=== PATIENT | female | born 1995 | race Two or more races ===

== ENCOUNTER 2024-08-20 01:46 | Inpatient (IN) | payer MEDICAID ==
[2024-08-20] VITALS (76 sets, daily range): BP systolic 103–176; BP diastolic 46–99; PULSE 65–155; RESP 12–24; TEMP 98.8–100; O2SAT 97–100
[~2024-08-20] VITALS: Ht 167.6 cm; Wt 80.3 kg
[2024-08-20] MEDS: MIDAZOLAM HCL 5 MG/ML-1ML VIAL ONE (02:13)
[2024-08-20] MEDS ORDERED: MIDAZOLAM HCL 5 MG/ML-1ML VIAL IM ONE (02:15)
--- NOTE | 2024-08-20 02:20 | ED.PDOC ---
History of Present Illness HPI Comments 29 y/o F, with a Hx of seizures and 3x intubations, is BIBA for c/o seizures, today. Per EMS report, patient's "boyfriend" called after patient had a sudden seizure episode after consuming 2x "twisted teas" and 1x "shot" alcohol beverages, while at a bar, this morning. Patient was noted to have been post-ict al, with a blood glucose of 111, on scene and became A&Ox3 upon arrival to ED. At time of assessment, patient had another seizure episode. Further history cannot be obtained at this time, due to patient, currently, seizing, and absence of family/hair dryer historians. 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 MECHANIC History: Denies all SCAGLIOLA MECHANIC Hx Family History Family History: Unknown Social History Smoker: Non-Smoker Alcohol: Heavy Drugs: Denies Drug Use Lives In: Home Neurological: reports: seizure All Other Systems: Reviewed and Negative (negative unless stated above or in HPI) Physical Exam General Appearance: No Apparent Distress, Obese HEENT: Normal ENT Inspection, Pharynx Normal, TMs Normal Neck: Full Range of Motion, Non-Tender, Normal, Normal Inspection Respiratory: Chest Non-Tender, Lungs Clear, No Accessory Muscle Use, No Respiratory Distress, Normal Breath Sounds Cardiovascular: No Edema, No JVD, No Murmur, No Gallop, Normal Peripheral Pulses, Regular Rate/Rhythm Breast Exam: Deferred Gastrointestinal: No Organomegaly, Non Tender, No Pulsatile Mass, Normal Bowel Sounds, Soft Genitalia: Deferred Pelvic: Deferred Rectal: Deferred Extremities: No calf tenderness, Normal capillary refill, Normal inspection, Normal range of motion, Non-tender, No pedal edema Musculoskeletal : Apperance: Normal 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: Attending Physician Indication: Volume resuscitation, Inability to obtain IV Room prepared for procedure: Yes Class B Truck Driver performed hand hygien: Yes Maximal sterile barrier precau: Mask/Eye shield, Sterile gown, Cap, Sterlie gloves, Large sterlie drape Skin Preparation: Chlorhexidine gluconate, Providine iodine, Alcohol Skin preparation completely dr: Yes Insertion site: Right, Femoral Central line catheter type: Lsj-[id number] dialysis Number of lumens: 3 Central line exchanged over a: No Antiseptic ointment applied to: No Post Assessment: Chest X-Ray, Proper placement Informed consent obtained: Yes Risks/benefits/alt described: Yes Intubation Indication: Airway Protection Prep: No Preoxygenation Pretreated with: Analgesia (20mg versed ), Sedation (propofol drip ) Medicated with: Other (100mg rocuronium) Intubation Approach: Orotracheal (8.0) Intubation size: cm (24 cm at lip ) Informed consent obtained: Yes Risks/benefits/alt described: Yes Other Procedure Procedure orogastric tube placement Anesthetic see intubation notes Prep see intubation notes Success success confirmed by proper placement and X-ray; 55cm at lip Informed consent obtained: Yes Risks, benefits, and alternati: Yes Differential Dx Considerations may include: seizure, alcohol intoxication X-Ray, Labs, Meds, VS Vital Signs Date Time Temp Pulse Resp B/P (MAP) Pulse Ox O2 Delivery O2 Flow Rate FiO2 08/20/24 04:01 131/72 08/20/24 03:56 137/91 08/20/24 03:47 96 16 138/47 100 50 08/20/24 03:24 96 16 138/87 (104) 100 50 08/20/24 02:00 112 12 98 Nasal Cannula* 6 44 08/20/24 01:53 112 12 149/83 (105) 98 08/20/24 01:50 97.5 104 20 142/91 (108) 99 Lab Test 08/20/24 02:16 08/20/24 01:50 Range/Units White Blood Count 11.7 H 4.4-10.8 10^3/uL Red Blood Count 5.02 4.0-5.20 10^6/uL Hemoglobin 13.7 12.2-16.2 g/dL Hematocrit 42.1 36.0-46.0 % Mean Corpuscular Volume 83.9 80.0-100.0 fL Mean Corpuscular Hemoglobin 27.2 L 28.0-32.0 pg Mean Corpuscular Hemoglobin Concent 32.5 32.0-36.0 g/dL Red Cell Distribution Width 15.1 H 11.8-14.3 % Platelet Count 308 140-450 10^3/uL Mean Platelet Volume 8.6 6.9-10.8 fL Neutrophils (%) (Auto) 59.7 37.0-80.0 % Lymphocytes (%) (Auto) 31.3 10.0-50.0 % Monocytes (%) (Auto) 7.3 0.0-12.0 % Eosinophils (%) (Auto) 1.2 0.0-7.0 % Basophils (%) (Auto) 0.5 0.0-2.0 % Neutrophils # (Auto) 7.0 1.6-8.6 10 ^3/uL Lymphocytes # (Auto) 3.7 0.4-5.4 10 ^3/uL Monocytes # (Auto) 0.9 0-1.3 10 ^3/uL Eosinophils # (Auto) 0.1 0-0.8 10 ^3/uL Basophils # (Auto) 0.1 0-0.2 10 ^3/uL Nucleated Red Blood Cells 0.1 % Sodium Level 143 136-145 mmol/L Potassium Level 3.9 3.5-5.1 mmol/L Chloride Level 111 H 98-107 mmol/L Carbon Dioxide Level 19 L 20-31 mmol/L Anion Gap 13 5-15 Blood Urea Nitrogen 7 L 9-23 mg/dL Creatinine 0.60 0.550-1.02 mg/dL Glomerular Filtration Rate Calc 124 >90 mL/min BUN/Creatinine Ratio 11.7 10.0-20.0 Serum Glucose 81 74-106 mg/dL Calcium Level 9.8 8.7-10.4 mg/dL Urine Color Colorless Yellow Urine Clarity Clear Clear Urine pH 6.0 5.0-9.0 Urine Specific [place] 1.002 1.001-1.035 Urine Protein Negative Negative Urine Ketones Negative Negative Urine Blood Negative Negative /uL Urine Nitrite Negative Negative Urine Bilirubin Negative Negative Urine Urobilinogen Normal Negative mg/dL Urine Leukocyte Esterase Negative Negative /uL Urine RBC <1 0 - 4 /hpf Urine Microscopic WBC < 1 0-5 /HPF Urine Squamous Epithelial Cells Few <5 /hpf Urine Bacteria Few H None Seen /hpf Urine Glucose Normal Normal mg/dL Urine Test Negative Negative Urine Opiates Screen Neg NEGATIVE Urine Fentanyl Screen Neg NEGATIVE Urine Barbiturates Screen Neg NEGATIVE Urine Phencyclidine Screen Neg NEGATIVE Urine Amphetamines Screen Neg NEGATIVE Urine Benzodiazepines Screen Neg NEGATIVE Urine Cocaine Screen Neg NEGATIVE Urine Cannabinoids Screen Neg NEGATIVE Current Medications Medications (Trade) Dose Ordered Sig/Nael Route Start Time Stop Time Status Last Admin Levetiracetam 200 ml @ 400 mls/hr ONCE ONCE IV 08/20/24 02:00 08/20/24 02:29 DC 08/20/24 02:32 Ondansetron HCl (Zofran) 4 mg ONCE ONCE IV 08/20/24 02:00 08/20/24 02:01 DC 08/20/24 02:23 Midazolam HCl (Versed Injection) 5 mg ONCE ONCE IV 08/20/24 02:30 08/20/24 02:31 DC 08/20/24 02:32 Midazolam HCl (Versed Injection) 20 mg ONCE ONCE IV 08/20/24 03:00 08/20/24 03:02 DC 08/20/24 03:04 Rocuronium [place] 100 mg ONCE ONCE IV 08/20/24 03:00 08/20/24 03:02 DC 08/20/24 04:01 Midazolam HCl 50 ml @ 1 mls/hr Q24H IV 08/20/24 03:30 08/20/24 03:56 Time of 1ST Reevaluation: 02:20 Reevaluation 1ST: Unchanged Patient Education/Counseling: Diagnosis, Treatment Family Education/Counseling: No Family Present Additional Information I reviewed the following notes from patient's past medical encounters: The following tests were ordered, and results were reviewed by me: BMP, CBC, UA, urine test, drug screen Additional Information was gathered from interviewing the following independent historians: EMT I discussed treatment and results with medical personnel Departure 1 Departure Time of Disposition: 04:06 (Patient presented with status epilepticus. Patient had multiple seizures without return to baseline in between. Intubate the patient for airway protection and seizure prophylaxis. Started patient on a Versed and propofol drip. We will admit patient for further workup) Impression: Primary Impression: Status epilepticus Disposition: ADMITTED INPATIENT Admit to: ICU Condition: Critical Critical Care Note Critical Care Time?: Yes Critical care comment: Status epilepticus Authorized and Performed by: Savana Alexis MD Total critical care time: Approximately 38 minutes Due to a high probability of clinically significant, life threatening deterioration, the patient required my highest level of preparedness to intervene emergently and I personally spent this critical care time directly and personally managing the patient. This critical care time included obtaining a history; examining the patient; pulse oximetry; ordering and review of studies; arranging urgent treatment with development of a management plan; evaluation of patient's response to treatment; frequent reassessment; and, discussions with o ther providers. This critical care time was performed to assess and manage the high probability of imminent, life-threatening deterioration that could result in multi-organ failure. It was exclusive of separately billable procedures and treating other patients and teaching time. Please see my other sections and the rest of the note for further information on patient assessment and treatment. Stability Stability form required: No Heart Score Heart Score: Heart Score Response (Comments) Value History N/A 0 EKG N/A 0 Age N/A 0 Risk Factors N/A 0 Troponin N/A 0 Total 0 I personally scribed for SAVANA ALEXIS MD ([email or web address]) on 08/20/24 at 02:20. Electronically submitted by Balbir Cantor ([email or web address]). I personally scribed for SAVANA ALEXIS MD ([email or web address]) on 08/20/24 at 03:47. Electronically submitted by Balbir Cantor ([email or web address]). SAVANA ALEXIS MD Aug 20, 2024 02:20
[2024-08-20] MEDS: SODIUM CHLORIDE 0.9% 1,000 ML IV ONE ×2 (02:23→04:56)
[2024-08-20] MEDS: ONDANSETRON HCL 4 MG/2 ML VIAL IV ONE (02:23)
[2024-08-20] MEDS: levETIRAcetam 1000 mg/100ml 200 ML IV ONE (02:32)
[2024-08-20] MEDS: MIDAZOLAM HCL 5 MG/ML-1ML VIAL IV ONE ×2 (02:32→03:04)
[2024-08-20 02:46] LABS: Potassium 3.9 mmol/L (3.5-5.1); Sodium 143 mmol/L (136-145)
[2024-08-20 02:47] LABS: Anion Gap 13 (5-15); Calcium 9.8 mg/dL (8.7-10.4)
[2024-08-20 02:49] LABS: Basophils # (auto) 0.1 10 ^3/uL (0-0.2); Basophils % (auto) 0.5 % (0.0-2.0); Eosinophils # (auto) 0.1 10 ^3/uL (0-0.8); Eosinophils % (auto) 1.2 % (0.0-7.0); Hematocrit 42.1 % (36.0-46.0); Hemoglobin 13.7 g/dL (12.2-16.2); Lymphocytes # (auto) 3.7 10 ^3/uL (0.4-5.4); Lymphocytes % (auto) 31.3 % (10.0-50.0); Mean Corpuscular Hemoglobin 27.2 pg (28.0-32.0); Mean Corpuscular Hgb Conc. 32.5 g/dL (32.0-36.0); Mean Corpuscular Volume 83.9 fL (80.0-100.0); Monocytes # (auto) 0.9 10 ^3/uL (0-1.3); Monocytes % (auto) 7.3 % (0.0-12.0); Neutrophils % (auto) 59.7 % (37.0-80.0); Nucleated Red Blood Cells % 0.1 %; Platelet Count (auto) 308 10^3/uL (140-450); Red Blood Cells 5.02 10^6/uL (4.0-5.20); Red Cell Distribution Width 15.1 % (11.8-14.3); White Blood Cell 11.7 10^3/uL (4.4-10.8)
[2024-08-20 02:52] LABS: BUN/Creatinine Ratio 11.7 (10.0-20.0); Glucose 81 mg/dL (74-106)
[2024-08-20 03:02] LABS: Blood Urea Nitrogen 7 mg/dL (9-23); Carbon Dioxide 19 mmol/L (20-31); Chloride 111 mmol/L (98-107)
[2024-08-20 03:04] LABS: Urine Bacteria FEW /hpf (None Seen); Urine Blood Negative /uL (Negative); Urine Clarity Clear (Clear); Urine Color Colorless (Yellow); Urine Protein, UAD Negative (Negative); Urine Specific Gravity 1.002 (1.001-1.035); Urine Squamous Epithelial Cell FEW /hpf (<5); Urine Urobilinogen Normal (Negative); Urine WBC < 1 /HPF (0-5)
[2024-08-20] MEDS: MIDAZOLAM HCL 10 ML IV ONE (03:19)
[2024-08-20] MEDS: MIDAZOLAM DRIP 50 mg/50mL 50 ML IV ONE (03:30)
[2024-08-20 03:32] LABS: Amphetamine Screen, Urine Neg (NEGATIVE); Barbiturate Scree,Urine Neg (NEGATIVE); Benzodiazephine Screen, Urine Neg (NEGATIVE); Cocaine Screen, Urine Neg (NEGATIVE)
[2024-08-20 03:33] LABS: Cannabinoid Screen, Urine Neg (NEGATIVE); Opiate Scree,Urine Neg (NEGATIVE); Phencyclidine Screen, Urine Neg (NEGATIVE)
--- NOTE | 2024-08-20 03:54 | DVH ---
CHEST RADIOGRAPH Indication: POST INTUBATION Technique: Single frontal view of the chest was obtained Comparison: None IMPRESSION: Endotracheal tube tip just proximal to the omid however obscured by lead, attention on follow-up is recommended. Enteric tube tip within the stomach. The lungs appear clear without focal airspace opacity, effusion, or pneumothorax.
[2024-08-20] MEDS: MIDAZOLAM DRIP 50 mg/50mL 50 ML IV SCH (03:56)
[2024-08-20] MEDS: ROCURONIUM 10MG/ML 10ML VIAL IV ONE (04:01)
[2024-08-20] MEDS: PROPOFOL 10 MG/ML 20 ML IV ONE (04:17)
[2024-08-20] MEDS: PROPOFOL 100 ML IV SCH (04:18)
[2024-08-20 04:46] LABS: Base Excess -6.2 mmol/L (-2.0-3.0)
[2024-08-20] MEDS: NOREPINEPHRINE 8 MG/250ML KIT 250 ML IV SCH (05:45)
--- NOTE | 2024-08-20 05:49 | DVH ---
EXAM: CT HEAD WITHOUT CONTRAST INDICATION: status epilepticus TECHNIQUE: CT of the head without intravenous contrast. Radiation Dose : 1. Head: CT Dose: CTDI volume is 61.3 mGy. Dose-length product is 982.54 mGy*cm The dose indicators for CT are the volume Computed Tomography (CT) Dose Index (CTDIvol) and the Dose Length Product (DLP), and are measured in units of mGy and mGy-cm, respectively. These indicators are not patient dose, but values generated from the CT scanner acquisition factors. The report includes radiation exposure data for exposures received during this examination. COMPARISON: None FINDINGS: There is no evidence of acute intracranial hemorrhage, extra-axial collection, mass effect, midline s hift, herniation or hydrocephalus. The ventricles, sulci and cisterns are age appropriate. The godoy-white differentiation is intact. The visualized paranasal sinuses and mastoid air cells are clear. The surrounding soft tissues and osseous structures are unremarkable. IMPRESSION: No acute intracranial abnormality. Radiation optimization: All CT scans at this facility use at least one of these dose optimization sharron hniques: automated exposure control mA and/or kV adjustment per patient size (includes targeted exam s where dose is matched to clinical indication) or iterative reconstruction.
--- NOTE | 2024-08-20 05:49 | DVHHPRES ---
History of Present Illness Resident Creating Document: JAMES WOOD RESIDENT History of Present Illness Patient is a 29-year-old female with past medical history of seizures, intubation x3, who was brought in due to seizures. According to patient's boyfriend who called the EMS, patient had a sudden onset of seizures after having 3 alcoholic beverages earlier in the day. At scene patient was noted to have a blood glucose level of 111. On arrival to the ED, patient was A&O x3. Within 20 minutes of arrival to the ER, patient started seizing again and underwent multiple seizures, A&O x1 along with postictal confusion was noted. Patient was subsequently sedated and intubated. CK, lactic acid an EEG was ordered for the patient. Neurology was also consulted and home medication Keppra 1000 mg IV b.i.d. was started. Past Medical History seizures, intubation x3 Past Surgical History Unable to obtain Past Social History Unable to obtain Review of Systems Review of Systems Patient is sedated and intubated, unable to complete review of systems. Allergies: Coded Allergies: NO KNOWN ALLERGIES (Unverified , 08/20/24) Medications Current Medications Medications Dose Ordered Sig/Nael Route Start Time Stop Time Status Last Admin Dose Admin Propofol 100 ml @ 2.592 mls/ hr Q24H IV 08/20/24 03:00 08/20/24 04:18 2.592 MLS/HR Midazolam HCl 50 ml @ 1 mls/hr Q24H IV 08/20/24 03:30 08/20/24 03:56 1 MLS/HR Pantoprazole Sodium 40 mg DAILY IV 08/20/24 10:00 Norepinephrine Bitartrate 250 ml @ 3.75 mls/hr Q24H IV 08/20/24 05:45 UNV Exam Vital Signs Vital Signs Date Time Temp Pulse Resp B/P (MAP) Pulse Ox O2 Delivery O2 Flow Rate FiO2 08/20/24 05:00 73 19 121/67 (85) 100 08/20/24 04:54 40 08/20/24 02:00 Nasal Cannula* 6 08/20/24 01:50 97.5 General Appearance: Other (Sedated and intubated with mechanical ventilation) Respiratory: Normal air movement Cardiovascular: Regular rate, Normal S1, Normal S2 Extremities: No edema Skin: No rashes, No significant lesion Labs/Xrays Labs Test 08/20/24 04:41 08/20/24 02:16 08/20/24 01:50 Range/Units Blood Gas Specimen Type Arterial Blood Gas Sample Site Right radial Blood Gas Patient Temperature 37.0 Arterial Blood Date Drawn [id number] Arterial Blood pH 7.241 *L 7.350-7.450 Arterial Blood Partial Pressure CO2 51.3 H 32.0-45.0 mmHg Arterial Blood Partial Pressure O2 126.7 H 83.0-108.0 mmHg Arterial Blood HCO3 21.5 21.0-28.0 mmol/L Arterial Blood Oxygen Saturation 97.8 94.0-98.0 % Arterial Blood Base Excess -6.2 L -2.0-3.0 mmol/L Arterial Blood Oxyhemoglobin 96.7 94.0-98.0 % Arterial Blood Carboxyhemoglobin 0.6 0.5-1.5 % Arterial Blood Methemoglobin 0.5 0.0-1.5 % Charles Test Modified Blood Gas Total Hemoglobin 14.20 12.0-16.0 g/dL Blood Gas Set Respiration Rate 16.0 Blood Gas Modality Vent - ac FiO2 % 50.0 Blood Gas Tidal Volume 400.0 Blood Gas PEEP or CPAP 5.0 Blood Gas Critical Value Read Back yes Blood Gas Notified Whom ha rodrigues md Blood Gas Notified Time [id number] Blood Gas Notified By lesly carmichael White Blood Count 11.7 H 4.4-10.8 10^3/uL Red Blood Count 5.02 4.0-5.20 10^6/uL Hemoglobin 13.7 12.2-16.2 g/dL Hematocrit 42.1 36.0-46.0 % Mean Corpuscular Volume 83.9 80.0-100.0 fL Mean Corpuscular Hemoglobin 27.2 L 28.0-32.0 pg Mean Corpuscular Hemoglobin Concent 32.5 32.0-36.0 g/dL Red Cell Distribution Width 15.1 H 11.8-14.3 % Platelet Count 308 140-450 10^3/uL Mean Platelet Volume 8.6 6.9-10.8 fL Neutrophils (%) (Auto) 59.7 37.0-80.0 % Lymphocytes (%) (Auto) 31.3 10.0-50.0 % Monocytes (%) (Auto) 7.3 0.0-12.0 % Eosinophils (%) (Auto) 1.2 0.0-7.0 % Basophils (%) (Auto) 0.5 0.0-2.0 % Neutrophils # (Auto) 7.0 1.6-8.6 10 ^3/uL Lymphocytes # (Auto) 3.7 0.4-5.4 10 ^3/uL Monocytes # (Auto) 0.9 0-1.3 10 ^3/uL Eosinophils # (Auto) 0.1 0-0.8 10 ^3/uL Basophils # (Auto) 0.1 0-0.2 10 ^3/uL Nucleated Red Blood Cells 0.1 % Sodium Level 143 136-145 mmol/L Potassium Level 3.9 3.5-5.1 mmol/L Chloride Level 111 H 98-107 mmol/L Carbon Dioxide Level 19 L 20-31 mmol/L Anion Gap 13 5-15 Blood Urea Nitrogen 7 L 9-23 mg/dL Creatinine 0.60 0.550-1.02 mg/dL Glomerular Filtration Rate Calc 124 >90 mL/min BUN/Creatinine Ratio 11.7 10.0-20.0 Serum Glucose 81 74-106 mg/dL Calcium Level 9.8 8.7-10.4 mg/dL Plasma/Serum Blood Alcohol 240.6 H <10 mg/dL Urine Color Colorless Yellow Urine Clarity Clear Clear Urine pH 6.0 5.0-9.0 Urine Specific [place] 1.002 1.001-1.035 Urine Protein Negative Negative Urine Ketones Negative Negative Urine Blood Negative Negative /uL Urine Nitrite Negative Negative Urine Bilirubin Negative Negative Urine Urobilinogen Normal Negative mg/dL Urine Leukocyte Esterase Negative Negative /uL Urine RBC <1 0 - 4 /hpf Urine Microscopic WBC < 1 0-5 /HPF Urine Squamous Epithelial Cells Few <5 /hpf Urine Bacteria Few H None Seen /hpf Urine Glucose Normal Normal mg/dL Urine Test Negative Negative Urine Opiates Screen Neg NEGATIVE Urine Fentanyl Screen Neg NEGATIVE Urine Barbiturates Screen Neg NEGATIVE Urine Phencyclidine Screen Neg NEGATIVE Urine Amphetamines Screen Neg NEGATIVE Urine Benzodiazepines Screen Neg NEGATIVE Urine Cocaine Screen Neg NEGATIVE Urine Cannabinoids Screen Neg NEGATIVE Assessment/Plan Assessment/Plan Breakthrough seizures due to noncompliance versus alcohol induced Acute hypoxic respiratory failure Respiratory acidosis possibly due to above Toxic versus metabolic encephalopathy due to above Sirs criteria met Alcohol intoxication - CXR: Endotracheal tube tip just proximal to the omid however obscured by lead, attention on follow-up is recommended. Enteric tube tip within the stomach. The lungs appear clear without focal airspace opacity, effusion, or pneumothorax. - head CT: No acute intracranial abnormality - IV Keppra 1000 mg b.i.d. - IV Zosyn once - neurology consulted - EEG - serum alcohol 240.6 - mechanically ventilated tidal volume 400, respiratory rate 20, peep 5, FiO2 40%; repeat ABG 1 hour after vent setting change - Levophed on standby to keep map greater than 60 - urine culture, blood culture, COVID, influenza PUD prophylaxis: protonix 40mg DVT prophylaxis: SCDs Goals of care: Unable to discuss Plan discussed with Dr. Saleh Plan discussed with: Other (RN) My Orders Orders - JAMES WOOD RESIDENT Procedure Category Date Status Time Creatine Kinase LAB 08/20/24 Logged 05:28 Lactic Acid W/ Reflex LAB 08/20/24 Logged Order 05:28 RPR LAB 08/20/24 Logged 05:28 Thyroid Stimulating LAB 08/20/24 Logged Hormone 05:28 Vitamin B12 LAB 08/20/24 Logged 05:28 Ammonia LAB 08/20/24 Logged 05:28 * Neurology Consult CONS 08/20/24 Transmitted 05:28 Eeg Awake/Sleep/Act EEG 08/20/24 Transmitted 05:28 Hepatic Panel LAB 08/20/24 Logged 05:28 Covid19 Antigen Abby LAB 08/20/24 Logged Rapid Influenza A&B LAB 08/20/24 Logged 05:28 Magnesium LAB 08/20/24 Logged 05:28 Blood Culture SHERON 08/20/24 Logged 05:28 Urine Bacterial SHERON 08/20/24 In Process Culture 05:28 Admit ADMIT 08/20/24 Transmitted 05:28 Code Status CODE 08/20/24 Transmitted 05:28 Vital Signs BERTA 08/20/24 In Process 05:28 Review Orders With BERTA 08/20/24 In Process Adm. 05:28 Notify Md Of Changes BERTA 08/20/24 In Process From Base 05:28 Advance Directive BERTA 08/20/24 In Process 05:28 Patient Condition ORDERS 08/20/24 Transmitted 05:28 Allergies BERTA 08/20/24 In Process 05:28 Notify Of Changes BERTA 08/20/24 In Process From Base 05:28 Piperacillin-Tazob PHA 08/20/24 Logged 3.375gm (Zosyn 3.375g 05:45 Pantoprazole PHA 08/20/24 Logged (Protonix) 10:00 Norepinephrine 8 PHA 08/20/24 Logged Mg/250ml Kit 05:45 Date of Service: Aug 20, 2024 Billing Provider: ALINA MUIR MD Common Visit Codes: [id number] CARE-EACH +30MIN JAMES WOOD RESIDENT Aug 20, 2024 05:49 ALINA MUIR MD Aug 20, 2024 09:32
[2024-08-20] MEDS: fentaNYL Drip 2500mCg/250mlNS 250 ML IV SCH (06:00)
[2024-08-20 06:44] LABS: Basophils # (auto) 0 10 ^3/uL (0-0.2); Basophils % (auto) 0.5 % (0.0-2.0); Eosinophils # (auto) 0 10 ^3/uL (0-0.8); Eosinophils % (auto) 0.4 % (0.0-7.0); Hematocrit 37.5 % (36.0-46.0); Hemoglobin 12.4 g/dL (12.2-16.2); Lymphocytes # (auto) 1.1 10 ^3/uL (0.4-5.4); Lymphocytes % (auto) 17.5 % (10.0-50.0); Mean Corpuscular Hemoglobin 27.6 pg (28.0-32.0); Mean Corpuscular Hgb Conc. 33.1 g/dL (32.0-36.0); Mean Corpuscular Volume 83.3 fL (80.0-100.0); Monocytes # (auto) 0.3 10 ^3/uL (0-1.3); Monocytes % (auto) 5.3 % (0.0-12.0); Neutrophils # (auto) 4.7 10 ^3/uL (1.6-8.6); Neutrophils % (auto) 76.3 % (37.0-80.0); Platelet Count (auto) 271 10^3/uL (140-450); Red Blood Cells 4.51 10^6/uL (4.0-5.20); Red Cell Distribution Width 15.1 % (11.8-14.3); White Blood Cell 6.2 10^3/uL (4.4-10.8)
[2024-08-20] MEDS: PIPERACILLIN-TAZOB 3.375GM 100 ML IV ONE (06:56)
[2024-08-20 07:04] LABS: Alanine Aminotransferase 23 U/L (7-40); Albumin 4.5 g/dL (3.2-4.8); Alkaline Phosphatase 78 U/L (46-116); Anion Gap 9 (5-15); Aspartate Aminotransferase 19 U/L (13-40); BUN/Creatinine Ratio 14.5 (10.0-20.0); Carbon Dioxide 23 mmol/L (20-31); Magnesium 1.9 mg/dL (1.6-2.6); Potassium 4.3 mmol/L (3.5-5.1); Sodium 145 mmol/L (136-145)
[2024-08-20 07:05] LABS: Creatine Kinase IFCC 63 U/L (34-145); Total Protein 6.8 g/dL (5.7-8.2)
[2024-08-20 07:15] LABS: Bilirubin, Direct < 0.1 mg/dL (<0.3); Bilirubin, Total 0.2 mg/dL (0.2-1.0); Blood Urea Nitrogen 8 mg/dL (9-23); Calcium 8.5 mg/dL (8.7-10.4); Chloride 113 mmol/L (98-107); Glucose 112 mg/dL (74-106)
[2024-08-20 08:11] LABS: Base Excess -4.8 mmol/L (-2.0-3.0)
--- NOTE | 2024-08-20 09:20 | DVHINCON2 ---
Date of service: Aug 20, [address] Moulton Reason for Consultation Seizure History of Present Illness Ms. Light is a 29 years old female with a history of obesity, seizure disorder, the patient was brought to the [facility] on 08/20/2024 with a chief company of seizure activity. At this time, she was sedated, intubated, no family is available for history, the information is obtained from chart review and her nurse According to ER note, the patient's "boyfriend" caught 911 after she had a sudden seizure episode after consuming too twisted teas and one shot of alcoholic beverage. Apparently, the patient became oriented x3 upon arrival ED, but she had more seizures, least three spells and she was intubated for airway protection At that time, she was responsive to painful stimuli [phone] is a nonworking number UDS, 08/20/2024: Negative Plasma alcohol, 08/20/2024: 240.6 Urinalysis, 08/20/2024: Unremarkable ABG, 08/20/2024: Respiratory acidosis, metabolic acidosis CBC, 08/20/2024: Unremarkable CMP, 08/20/2024: Unremarkable Vitamin B12, 08/20/2024: 699 TSH, 08/20/2024: 0.45 CT head, 05/20/2025: No acute intracranial abnormality. Past Medical History Obesity, seizure Past Surgical History Unknown Family History Unknown Social History Unknown Allergies: Coded Allergies: NO KNOWN ALLERGIES (Unverified , 08/20/24) Current Medications Current Medications Medications (Trade) Dose Ordered Sig/Nael Route PRN Reason Start Time Stop Time Status Last Admin Propofol 100 ml @ 2.592 mls/ hr Q24H IV 08/20/24 03:00 08/20/24 04:18 Midazolam HCl 50 ml @ 1 mls/hr Q24H IV 08/20/24 03:30 08/20/24 03:56 Pantoprazole Sodium (Protonix) 40 mg DAILY IV 08/20/24 10:00 Norepinephrine Bitartrate 250 ml @ 3.75 mls/hr Q24H IV 08/20/24 05:45 Fentanyl Citrate 250 ml @ 2.5 mls/hr Q24H IV 08/20/24 06:00 Levetiracetam 100 ml @ 400 mls/hr Q12H IV 08/20/24 14:00 Review of Systems Unknown Vital Signs Vital Signs Date Time Temp Pulse Resp B/P (MAP) Pulse Ox O2 Delivery O2 Flow Rate FiO2 08/20/24 08:28 78 20 114/59 (77) 98 40 08/20/24 07:00 96.3 96.3 08/20/24 04:00 Mechanical Ventilator+ 08/20/24 02:00 6 Physical Exam The patient is well-nourished and well-developed with no distress. The patient is intubated HEENT: Normocephalic, neck supple, no carotid bruits Lungs: Clear to auscultation Cardiovascular: Regular rate and region, S1, S2, no murmurs Abdomen: Soft, nontender, normal bowel sounds MENTAL STATUS: Responds to painful stimuli CRANIAL NERVES: Pupils are equal, round and reactive.There are corneal reflexes and doll's eyes phenomenon. No signs of facial weakness. There are gagging or coughing reflexes SENSATION: Responses to pain stimuli. MOTOR: Normal tone in the upper and lower extremity. Normal muscle bulk. No fasciculations. No spontaneous movement. REFLEXES: Deep tendon reflexes are symmetrical. No pathological reflexes. CEREBELLAR/COORDINATION: Deferred GAIT/STATION: deferred. Labs/Diagnostic Data Labs Test 08/20/24 08:30 08/20/24 08:04 08/20/24 07:56 08/20/24 06:05 Range/Units Blood Gas Specimen Type Arterial Blood Gas Sample Site Right radial Blood Gas Patient Temperature 37.0 Arterial Blood Date Drawn [id number] Arterial Blood pH 7.345 L 7.350-7.450 Arterial Blood Partial Pressure CO2 38.3 32.0-45.0 mmHg Arterial Blood Partial Pressure O2 136.4 H 83.0-108.0 mmHg Arterial Blood HCO3 20.4 L 21.0-28.0 mmol/L Arterial Blood Oxygen Saturation 98.5 H 94.0-98.0 % Arterial Blood Base Excess -4.8 L -2.0-3.0 mmol/L Arterial Blood Oxyhemoglobin 97.4 94.0-98.0 % Arterial Blood Carboxyhemoglobin 0.6 0.5-1.5 % Arterial Blood Methemoglobin 0.5 0.0-1.5 % Charles Test Yes Blood Gas Total Hemoglobin 12.70 12.0-16.0 g/dL Blood Gas Set Respiration Rate 20.0 Blood Gas Modality Vent - ac FiO2 % 40.0 Blood Gas Tidal Volume 400.0 Blood Gas PEEP or CPAP 5.0 White Blood Count 6.2 # 4.4-10.8 10^3/uL Red Blood Count 4.51 4.0-5.20 10^6/uL Hemoglobin 12.4 12.2-16.2 g/dL Hematocrit 37.5 # 36.0-46.0 % Mean Corpuscular Volume 83.3 80.0-100.0 fL Mean Corpuscular Hemoglobin 27.6 L 28.0-32.0 pg Mean Corpuscular Hemoglobin Concent 33.1 32.0-36.0 g/dL Red Cell Distribution Width 15.1 H 11.8-14.3 % Platelet Count 271 140-450 10^3/uL Mean Platelet Volume 8.7 6.9-10.8 fL Neutrophils (%) (Auto) 76.3 37.0-80.0 % Lymphocytes (%) (Auto) 17.5 10.0-50.0 % Monocytes (%) (Auto) 5.3 0.0-12.0 % Eosinophils (%) (Auto) 0.4 0.0-7.0 % Basophils (%) (Auto) 0.5 0.0-2.0 % Neutrophils # (Auto) 4.7 1.6-8.6 10 ^3/uL Lymphocytes # (Auto) 1.1 0.4-5.4 10 ^3/uL Monocytes # (Auto) 0.3 0-1.3 10 ^3/uL Eosinophils # (Auto) 0 0-0.8 10 ^3/uL Basophils # (Auto) 0 0-0.2 10 ^3/uL Nucleated Red Blood Cells 0.0 % Sodium Level 145 136-145 mmol/L Potassium Level 4.3 3.5-5.1 mmol/L Chloride Level 113 H 98-107 mmol/L Carbon Dioxide Level 23 20-31 mmol/L Anion Gap 9 5-15 Blood Urea Nitrogen 8 L 9-23 mg/dL Creatinine 0.55 0.550-1.02 mg/dL Glomerular Filtration Rate Calc 126 >90 mL/min BUN/Creatinine Ratio 14.5 10.0-20.0 Serum Glucose 112 H 74-106 mg/dL Lactic Acid Level 2.0 0.4-2.0 mmol/L Calcium Level 8.5 L 8.7-10.4 mg/dL Magnesium Level 1.9 1.6-2.6 mg/dL Total Bilirubin 0.2 0.2-1.0 mg/dL Direct Bilirubin < 0.1 <0.3 mg/dL Aspartate Amino Transferase (AST) 19 13-40 U/L Alanine Aminotransferase (ALT) 23 7-40 U/L Alkaline Phosphatase 78 46-116 U/L Creatine Kinase 63 34-145 U/L Total Protein 6.8 5.7-8.2 g/dL Albumin 4.5 3.2-4.8 g/dL Vitamin B12 Level 699 211-911 pg/mL Thyroid Stimulating Hormone (TSH) 0.45 L 0.55-4.78 uIU/mL Test 08/20/24 05:28 08/20/24 04:41 08/20/24 02:16 08/20/24 01:50 Range/Units Ammonia 14 11-32 umol/L Blood Gas Critical Value Read Back yes Blood Gas Notified Whom ha rodrigues md Blood Gas Notified Time [id number] Blood Gas Notified By surgeon/president louise carmichael Plasma/Serum Blood Alcohol 240.6 H <10 mg/dL Urine Color Colorless Yellow Urine Clarity Clear Clear Urine pH 6.0 5.0-9.0 Urine Specific [place] 1.002 1.001-1.035 Urine Protein Negative Negative Urine Ketones Negative Negative Urine Blood Negative Negative /uL Urine Nitrite Negative Negative Urine Bilirubin Negative Negative Urine Urobilinogen Normal Negative mg/dL Urine Leukocyte Esterase Negative Negative /uL Urine RBC <1 0 - 4 /hpf Urine Microscopic WBC < 1 0-5 /HPF Urine Squamous Epithelial Cells Few <5 /hpf Urine Bacteria Few H None Seen /hpf Urine Glucose Normal Normal mg/dL Urine Test Negative Negative Urine Opiates Screen Neg NEGATIVE Urine Fentanyl Screen Neg NEGATIVE Urine Barbiturates Screen Neg NEGATIVE Urine Phencyclidine Screen Neg NEGATIVE Urine Amphetamines Screen Neg NEGATIVE Urine Benzodiazepines Screen Neg NEGATIVE Urine Cocaine Screen Neg NEGATIVE Urine Cannabinoids Screen Neg NEGATIVE Assessment Coma Toxic encephalopathy ? Status epilepticus Metabolic encephalopathy Seizure disorder, history unobtainable ? Alcoholism Plan/Recommendation Monitoring Supportive treatment EEG MR head later (will order) ICU care Stabilize vitals Respiratory support/vent management Thiamine 100 mg IV q.d. Folic acid 1 mg IV q.d. Ativan for seizure breakthrough No preventive seizure treatment at this moment Seizure precautions DT precautions Social work RE: Family contact information Prognosis: Poor, guarded Critical care time spent is 45 minutes This medical document was created using an electronic medical record system with [employer] dictation system. Although this document has been carefully reviewed, there may still be some phonetic and typographical errors. These areas are purely typographical due to imperfections of the software programs, and do not reflect any compromise in the patient's medical care. Plan discussed with: Other RODRIGO SEPULVEDA MD Aug 20, 2024 09:20
[2024-08-20 09:43] LABS: COVID19 ANTIGEN SOFIA FIA NEGATIVE (NEGATIVE)
[2024-08-20 09:48] LABS: Rapid Influenza A Negative (Negative)
[2024-08-20 09:54] LABS: Rapid Influenza B Positive (Negative)
[2024-08-20] MEDS: FOLIC ACID 1 MG TAB PO SCH (10:00)
[2024-08-20] MEDS: PANTOPRAZOLE 40 MG/10 ML VIAL INJ IV SCH (10:00)
[2024-08-20] MEDS: ENOXAPARIN SOD 40 MG/0.4 ML SYRINGE SC ONE (10:15)
[2024-08-20] MEDS ORDERED: LORazepam 2MG/ML-1ML VIAL IV PRN (10:15)
[2024-08-20 10:34] LABS: INR 1.33 (0.9-1.15); Partial Thromboplastin Time 27.2 SEC (24.5-34.5); Prothrombin Time 13.7 sec (9.3-11.8)
[2024-08-20 11:28] LABS: Lactic Acid w/Reflex 2.3 mmol/L (0.4-2.0)
[2024-08-20 11:43] LABS: Free T4 (Free Thyroxine) 1.34 ng/dL (0.89-1.76); T3 Total 1.15 ng/mL (0.60-1.81)
[2024-08-20] MEDS: THIAMINE 100mg/ml INJ (200mg/2ml VIAL) IV ONE (11:55)
[2024-08-20] MEDS: CYANOCOBALAMIN (B-12) 1000 MCG/1 ML VIAL SUBCUT ONE (11:55)
[2024-08-20] MEDS ORDERED: Jevity 1.2 Cal/Fiber 1 Liter GT SCH (12:15)
--- NOTE | 2024-08-20 13:37 | DVHPNRES ---
Progress Note Date Seen: Aug 20, 2024 Resident Creating Document: RICH CRAMER RESIDENT Medical Necessity Reason Pt with a Central, PICC or Fol: Yes The following are medically ne: Central Line, Jordan Catheter Subjective Review of Systems Ms. Light is a 29 years old female with a PMH of seizures, obesity presented to the ED with the chief complaints of seizures. Per records patient's boyfriend who called the EMS, patient had a sudden onset of seizures after having 3 alcoholic beverages earlier in the day. At scene patient was noted to have a blood glucose level of 111. On arrival to the ED, patient was A&O x3. Within 20 minutes of arrival to the ER, patient started seizing again and underwent multiple seizures, A&O x1 along with postictal confusion was noted. Patient was subsequently sedated and intubated. Patient had multiple seizure episodes, some of them required intubation 3 times in past. Patient seen and examined at the bedside. Unable to obtain ROS due to patient clinical status. Patient is currently intubated, on mechanical ventilation and sedated. CPAP trial tomorrow. Changes from previous H/P or p: No Changes Objective vital signs Vital Sign Date Time Temp Pulse Resp B/P (MAP) Pulse Ox O2 Delivery O2 Flow Rate FiO2 08/20/24 12:00 80 08/20/24 11:54 20 119/75 (90) 97 35 08/20/24 07:00 96.3 96.3 08/20/24 04:00 Mechanical Ventilator+ 08/20/24 02:00 6 Total Intake and Output 08/19/24 08/19/24 08/20/24 15:00 23:00 07:00 Intake Total 1000 ml Output Total 400 ml Balance 600 ml medications Current Medications Medications Dose Ordered Sig/Nael Route Start Time Stop Time Status Last Admin Dose Admin Propofol 100 ml @ 2.592 mls/ hr Q24H IV 08/20/24 03:00 08/20/24 10:11 25.92 MLS/HR Midazolam HCl 50 ml @ 1 mls/hr Q24H IV 08/20/24 03:30 08/20/24 10:12 15 MLS/HR Pantoprazole Sodium 40 mg DAILY IV 08/20/24 10:00 08/20/24 10:00 40 MG Norepinephrine Bitartrate 250 ml @ 3.75 mls/hr Q24H IV 08/20/24 05:45 Fentanyl Citrate 250 ml @ 2.5 mls/hr Q24H IV 08/20/24 06:00 Levetiracetam 100 ml @ 400 mls/hr Q12H IV 08/20/24 14:00 Lorazepam 1 mg Q5MINP PRN IV 08/20/24 10:00 Cyanocobalamin 100 mcg DAILY IM 08/21/24 10:00 Folic Acid 1 mg DAILY PO 08/20/24 10:00 08/20/24 10:00 1 MG Enoxaparin Sodium 40 mg DAILY SC 08/21/24 10:00 Thiamine HCl 100 mg DAILY IV 08/21/24 10:00 Enteral Nutritional Formula 1,000 ml 30ML/HR GT 08/20/24 12:15 Examination Pt is lying on bed General Appearance: sedated, intubated mechanical ventilation HEENT: Atraumatic, Mucous membranes moist/pink Respiratory: Normal air movement, Crackles heard . Cardiovascular: Regular rate, Normal S1, Normal S2, No murmurs Abdominal: Active bowel sounds, Soft, no distention, no tenderness Extremities: No edema, Normal pulses, No tenderness/swelling Skin: No Significant rash Neuro: pupils are constricted and sluggish to react Psych/Mental Status: Mental status NL, Mood NL Nurse was there as sharperone during examination laboratory and microbiology Laboratory Tests 08/20/24 06:05 Test 08/20/24 06:05 Range/Units Serum Glucose 112 H 74-106 mg/dL Labs and/or images reviewed: Labs reviewed by me, Image(s) reviewed by me Problem List/Assessment/Plan Problem List/Assessment/Plan NEUROLOGY # acute metabolic or toxic encephalopathy # grand mal seizures # rule out status epilepticus - CT showed no acute intracranial abnormalities - currently on midazolam drip - currently intubated and sedated with Versed and Diprivan, fentanyl 08/20 - neurology on board, advised to continue current management - EEG pending - currently on Keppra - ordered Ativan p.r.n. for seizures - precautions seizures - Thiamine 100 mg IV q.d. and Folic acid 1 mg IV q.d. CARDIOLOGY RESPIRATORY # Acute hypoxic respiratory failure # possible aspiration pneumonia # influenza type B # SIRS vs Sepsis - currently intubated and sedated with Versed and Diprivan, fentanyl 08/20 - RR 20, VTE 400, FiO2 40%, peep 5 - rapid test positive for type B influenza - Currently on Zosyn for now - ordered pancultures - monitoring labs -Tamiflu GI/LIVER # obesity grade 1 - monitor /KIDNEY/METABOLIC # Mixed Respiratory and metabolic acidosis likely due to above - monitoring with the ABG - monitor renal function and electrolyte imbalance, replace as needed ENDO MSK HEME ID # possible aspiration pneumonia # influenza type B # SIRS vs Sepsis - rapid test positive for type B influenza - Currently on Zosyn for now - ordered pancultures - monitoring labs SKIN LINES Right femoral vein catheter Jordan catheter DRIPS Versed, Diprivan Fetanyl Currently Off from Levophed 08/20 NUTRITION Jevity 30ml/hr PUD prophylaxis: Pantoprazole DVT prophylaxis: Lovenox Goals of care has been discussed with the family for more than 27 minutes, full code status Critical care time including chart review, discussing with the patient's family excluding procedures: 54 minutes Case discussed with Dr. Che Plan discussed with: Spouse My Orders My Orders Orders - RICH CRAMER Procedure Category Date Status Time Enoxaparin Sodium PHA 08/21/24 In Process (Lovenox) 10:00 Acute Hepatitis Panel LAB 08/20/24 In Process 10:06 Nutritional PHA 08/20/24 In Process Supplements (Jevity 12:15 Date of Service: Aug 20, 2024 Billing Provider: ANDRES CHE MD Common Visit Codes: 87926-[id number] CARE 30-74 MIN RICH CRAMER Aug 20, 2024 13:37 ANDRES CHE MD Aug 21, 2024 15:57
[2024-08-20] MEDS: SODIUM CHLORIDE 0.9% 500 ML IV ONE (14:00)
[2024-08-20] MEDS: levETIRAcetam 1000 mg/100ml 100 ML IV SCH (14:00)
[2024-08-20] MEDS: PIPERACILLIN-TAZO 4.5GM 100 ML IV ONE (14:00)
[2024-08-20] MEDS: OSELTAMIVIR 75 MG CAP PO ONE (15:30)
[2024-08-20] MEDS: PIPERACILLIN-TAZOB 3.375GM 100 ML IV SCH (18:40)
[2024-08-20] MEDS: FUROSEMIDE 20 MG/2 ML VIAL IV ONE (18:49)
[2024-08-20] MEDS: OSELTAMIVIR 75 MG CAP PO SCH (22:15)
[2024-08-20] MEDS: DOCUSATE ORAL LIQUID 100 MG/10 ML UD GT SCH (22:15)
[2024-08-21] VITALS (107 sets, daily range): BP systolic 110–209; BP diastolic 55–166; PULSE 64–89; RESP 16–23; TEMP 97.2–100.6; O2SAT 99–100
[2024-08-21] MEDS: LORazepam 2MG/ML-1ML VIAL IV PRN (02:41)
[2024-08-21 04:04] LABS: Basophils # (auto) 0 10 ^3/uL (0-0.2); Basophils % (auto) 0.4 % (0.0-2.0); Eosinophils # (auto) 0.3 10 ^3/uL (0-0.8); Eosinophils % (auto) 2.4 % (0.0-7.0); Hematocrit 37.6 % (36.0-46.0); Hemoglobin 12.4 g/dL (12.2-16.2); Lymphocytes # (auto) 1.8 10 ^3/uL (0.4-5.4); Lymphocytes % (auto) 13.8 % (10.0-50.0); Mean Corpuscular Volume 81.9 fL (80.0-100.0); Monocytes # (auto) 0.7 10 ^3/uL (0-1.3); Monocytes % (auto) 5.5 % (0.0-12.0); Neutrophils # (auto) 10.1 10 ^3/uL (1.6-8.6); Neutrophils % (auto) 77.9 % (37.0-80.0); Platelet Count (auto) 260 10^3/uL (140-450); Red Blood Cells 4.59 10^6/uL (4.0-5.20); Red Cell Distribution Width 15.3 % (11.8-14.3); White Blood Cell 12.9 10^3/uL (4.4-10.8)
[2024-08-21 04:25] LABS: Alanine Aminotransferase 18 U/L (7-40); Albumin 3.9 g/dL (3.2-4.8); Alkaline Phosphatase 70 U/L (46-116); Anion Gap 10 (5-15); Aspartate Aminotransferase 15 U/L (13-40); BUN/Creatinine Ratio 13.6 (10.0-20.0); Blood Urea Nitrogen 9 mg/dL (9-23); Calcium 9.2 mg/dL (8.7-10.4); Carbon Dioxide 25 mmol/L (20-31); Chloride 107 mmol/L (98-107); Glucose 91 mg/dL (74-106); Magnesium 1.8 mg/dL (1.6-2.6); Sodium 142 mmol/L (136-145)
[2024-08-21 04:26] LABS: Bilirubin, Total 0.5 mg/dL (0.2-1.0); Total Protein 6.4 g/dL (5.7-8.2)
[2024-08-21 04:30] LABS: Potassium 3.3 mmol/L (3.5-5.1)
--- NOTE | 2024-08-21 05:04 | DVH ---
CHEST RADIOGRAPH Indication: pna Technique: Single frontal view of the chest was obtained Comparison: XY CHEST XRAY 1 VIEW on DOS: 08/20/24 FINDINGS: Lines and Tubes: Endotracheal tube terminates 1.7 cm above the omid. The enteric tube courses below the left hemidiaphragm and the tip extends outside the field of view. Lungs: Interval development of a left basilar opacity. Pleura: No large pleural effusion. No pneumothorax. Cardiomediastinal contours: Unremarkable Bones: No acute osseous abnormality. IMPRESSION: 1. Interval development of left basilar opacity which may reflect atelectasis or pneumonia.
[2024-08-21 07:42] LABS: Base Excess -2.2 mmol/L (-2.0-3.0)
[2024-08-21 08:06] LABS: RPR Non Reactive (Non Reactive)
[2024-08-21] MEDS: MAGNESIUM SULFATE 1GM/100ML 100 ML IV ONE (08:30)
[2024-08-21] MEDS: levETIRAcetam 1500 mg/100ml 100 ML IV SCH (09:15)
--- NOTE | 2024-08-21 09:26 | DVHPN2 ---
Progress Note - Dictate Date Seen: Aug 21, 2024 Medical Necessity Reason Pt with a Central, PICC or Fol: Yes The following are medically ne: Central Line, Jordan Catheter Subjective Ms. Light is a 29 years old female with a history of obesity, seizure disorder, the patient was brought to the [facility] on 08/20/2024 with a chief company of seizure activity. I have seen and examined the patient in the ICU, I have discussed with her nurse, and primary care team She had four more seizures, one in the last evening lasted for 20 minutes, three this morning, all were generalized tonic-clonic seizure Social service input appreciated Fentanyl 25 mcg/hour, Versed 50 mg/hour, propofol 50 mcg/minute UDS, 08/20/2024: Negative Plasma alcohol, 08/20/2024: 240.6 Urinalysis, 08/20/2024: Unremarkable ABG, 08/20/2024: Respiratory acidosis, metabolic acidosis CBC, 08/20/2024: Unremarkable CMP, 08/20/2024: Unremarkable Vitamin B12, 08/20/2024: 699 TSH, 08/20/2024: 0.45 CT head, 05/20/2025: No acute intracranial abnormality. vital signs Vital Sign Date Time Temp Pulse Resp B/P (MAP) Pulse Ox O2 Delivery O2 Flow Rate FiO2 08/21/24 08:46 71 20 132/75 (94) 100 30 08/21/24 06:45 98.4 209.1 08/21/24 06:00 Mechanical Ventilator+ 08/20/24 02:00 6 Total Intake and Output 08/20/24 08/20/24 08/21/24 15:00 23:00 07:00 Intake Total 1166.36 ml 399.34 ml 438.3 ml Output Total 1300 ml Balance 1166.36 ml 399.34 ml -861.7 ml medications Current Medications Medications Dose Ordered Sig/Nael Route Start Time Stop Time Status Last Admin Dose Admin Propofol 100 ml @ 2.592 mls/ hr Q24H IV 08/20/24 03:00 08/21/24 08:29 25.92 MLS/HR Midazolam HCl 50 ml @ 1 mls/hr Q24H IV 08/20/24 03:30 08/21/24 07:52 15 MLS/HR Pantoprazole Sodium 40 mg DAILY IV 08/20/24 10:00 08/20/24 10:00 40 MG Norepinephrine Bitartrate 250 ml @ 3.75 mls/hr Q24H IV 08/20/24 05:45 Fentanyl Citrate 250 ml @ 2.5 mls/hr Q24H IV 08/20/24 06:00 08/21/24 08:45 2.5 MLS/HR Lorazepam 1 mg Q5MINP PRN IV 08/20/24 10:00 08/21/24 08:25 1 MG Enoxaparin Sodium 40 mg DAILY SC 08/21/24 10:00 Thiamine HCl 100 mg DAILY IV 08/21/24 10:00 Enteral Nutritional Formula 1,000 ml 30ML/HR GT 08/20/24 12:15 Piperacillin Sod/ Tazobactam Sod 100 ml @ 25 mls/hr Q6HR IV 08/20/24 18:00 08/21/24 05:45 25 MLS/HR Oseltamivir Phosphate 75 mg Q12HR PO 08/20/24 22:00 08/24/24 22:01 08/20/24 22:15 75 MG Docusate Sodium 100 mg BID GT 08/20/24 22:00 08/20/24 22:15 100 MG Acetaminophen 650 mg Q6HP PRN PO 08/20/24 16:15 Dexmedetomidine HCl 400 mcg/ Dextrose 100 ml @ 3.89 mls/hr Q24H IV 08/20/24 19:45 Enalaprilat 0.625 mg Q6HP PRN IV 08/20/24 21:30 Potassium Chloride 100 ml @ 50 mls/hr Q2H IV 08/21/24 07:00 08/21/24 10:59 Levetiracetam 100 ml @ 400 mls/hr BID IV 08/21/24 10:00 08/21/24 09:15 400 MLS/HR objective The patient is well-nourished and well-developed with no distress. The patient is intubated MENTAL STATUS: Responds to painful stimuli CRANIAL NERVES: Pupils are equal, round and reactive.There are corneal reflexes and doll's eyes phenomenon. No signs of facial weakness. There are gagging or coughing reflexes SENSATION: Responses to pain stimuli. MOTOR: Normal tone in the upper and lower extremity. Normal muscle bulk. No fasciculations. No spontaneous movement. REFLEXES: Deep tendon reflexes are symmetrical. No pathological reflexes. CEREBELLAR/COORDINATION: Deferred GAIT/STATION: deferred laboratory and microbiology Laboratory Tests 08/21/24 03:00 Test 08/21/24 03:00 Range/Units Serum Glucose 91 74-106 mg/dL Problem List Coma Status epilepticus Toxic encephalopathy Metabolic encephalopathy Seizure disorder, history unobtainable ? Alcoholism Assessment/Plan Monitoring Supportive treatment MR head later (will order) ICU care Stabilize vitals Respiratory support/vent management Thiamine 100 mg IV q.d. Folic acid 1 mg IV q.d. Ativan for seizure breakthrough Keppra 1500 mg b.i.d. for now Seizure precautions DT precautions Social work RE: Family contact information This medical document was created using an electronic medical record system with [employer] dictation system. Although this document has been carefully reviewed, there may still be some phonetic and typographical errors. These areas are purely typographical due to imperfections of the software programs, and do not reflect any compromise in the patient's medical care. Prognosis guarded Plan discussed with: Other Critical Care Time(min): 35 RODRIGO SEPULVEDA MD Aug 21, 2024 09:26
[2024-08-21] MEDS: POTASSIUM CHL 20MEQ/100ML 100 ML IV SCH (09:56)
[2024-08-21] MEDS ORDERED: CYANOCOBALAMIN (B-12) 1000 MCG/1 ML VIAL IM SCH (10:00)
--- NOTE | 2024-08-21 11:11 | DVHEEG2 ---
Neurology EEG Procedural Note Procedural Note EXAM DATE: 08/20/2024 REFERRING DOCTOR: Dr. Sepulveda TECHNIQUE: Eighteen channels of EEG, 2 channels of EOG, and 1 channel of EKG were recorded using the [employer] 10/20 system. CLINICAL DATA: The patient was referred for an EEG evaluation for the evidence of seizure disorder. MEDICATIONS: See chart BACKGROUND ACTIVITY: There was electrode and environmental artifacts in the recording. The record showed diffuse low amplitude rhythmic beta activity over both hemispheres ACTIVATION: Hyperventilation: Not done Photic Stimulation: Not done Sleep: Nonresponsiveness IMPRESSION: This is an abnormal but likely an EEG with medication effects, which can be seen in benzodiazepine and phenobarbital treatment, please correlate clinically No evidence of electrographic seizure or epileptiform activity The EKG channel showed a regular heart rate of 78/minute. [place] [address] RODRIGO SEPULVEDA MD Aug 21, 2024 11:11
[2024-08-21] MEDS: THIAMINE 100mg/ml INJ (200mg/2ml VIAL) IV SCH (11:21)
[2024-08-21] MEDS: ENOXAPARIN SOD 40 MG/0.4 ML SYRINGE SC SCH (11:22)
[2024-08-21 11:38] LABS: Lactic Acid w/Reflex 2.2 mmol/L (0.4-2.0)
[2024-08-21] MEDS: MIDAZOLAM HCL 2MG/2ML 2ml VIAL (1mg/ml) ONE ×2 (14:09→14:23)
[2024-08-21 14:53] LABS: Base Excess -4.2 mmol/L (-2.0-3.0)
--- NOTE | 2024-08-21 14:58 | DVHPNRES ---
Progress Note Date Seen: Aug 21, 2024 Resident Creating Document: RICH CRAMER RESIDENT Medical Necessity Reason Pt with a Central, PICC or Fol: Yes The following are medically ne: Central Line, Jordan Catheter Subjective Review of Systems Ms. Light is a 29 years old female with a PMH of seizures, obesity presented to the ED with the chief complaints of seizures. Patient seen and examined at the bedside. Unable to obtain ROS due to patient clinical status. Patient is currently intubated, on mechanical ventilation and sedated. CPAP trial not done because of seizure activity. patient has bee having multiple episodes of seizure activity , raised keppra to 1500 mg bid. Still patient experiencing seizures, neurologist advised to give phenytoin. Changes from previous H/P or p: No Changes Objective vital signs Vital Sign Date Time Temp Pulse Resp B/P (MAP) Pulse Ox O2 Delivery O2 Flow Rate FiO2 08/21/24 14:40 81 20 154/93 (113) 100 30 08/21/24 12:00 Mechanical Ventilator+ 08/21/24 12:00 97.2 207.0 08/20/24 02:00 6 Total Intake and Output 08/20/24 08/20/24 08/21/24 15:00 23:00 07:00 Intake Total 1166.36 ml 399.34 ml 504.22 ml Output Total 1300 ml Balance 1166.36 ml 399.34 ml -795.78 ml medications Current Medications Medications Dose Ordered Sig/Nael Route Start Time Stop Time Status Last Admin Dose Admin Propofol 100 ml @ 2.592 mls/ hr Q24H IV 08/20/24 03:00 08/21/24 11:41 2.592 MLS/HR Midazolam HCl 50 ml @ 1 mls/hr Q24H IV 08/20/24 03:30 08/21/24 11:08 15 MLS/HR Pantoprazole Sodium 40 mg DAILY IV 08/20/24 10:00 08/21/24 11:21 40 MG Norepinephrine Bitartrate 250 ml @ 3.75 mls/hr Q24H IV 08/20/24 05:45 Fentanyl Citrate 250 ml @ 2.5 mls/hr Q24H IV 08/20/24 06:00 08/21/24 08:45 2.5 MLS/HR Lorazepam 1 mg Q5MINP PRN IV 08/20/24 10:00 08/21/24 14:27 1 MG Enoxaparin Sodium 40 mg DAILY SC 08/21/24 10:00 08/21/24 11:22 40 MG Thiamine HCl 100 mg DAILY IV 08/21/24 10:00 08/21/24 11:21 100 MG Enteral Nutritional Formula 1,000 ml 30ML/HR GT 08/20/24 12:15 Piperacillin Sod/ Tazobactam Sod 100 ml @ 25 mls/hr Q6HR IV 08/20/24 18:00 08/21/24 13:06 25 MLS/HR Oseltamivir Phosphate 75 mg Q12HR PO 08/20/24 22:00 08/24/24 22:01 08/21/24 11:21 75 MG Docusate Sodium 100 mg BID GT 08/20/24 22:00 08/21/24 11:21 100 MG Acetaminophen 650 mg Q6HP PRN PO 08/20/24 16:15 Dexmedetomidine HCl 400 mcg/ Dextrose 100 ml @ 3.89 mls/hr Q24H IV 08/20/24 19:45 Enalaprilat 0.625 mg Q6HP PRN IV 08/20/24 21:30 Levetiracetam 100 ml @ 400 mls/hr BID IV 08/21/24 10:00 08/21/24 09:15 400 MLS/HR Phenytoin Sodium 100 mg Q8HR IV 08/21/24 22:00 Examination Pt is lying on bed General Appearance: sedated, intubated mechanical ventilation HEENT: Atraumatic, Mucous membranes moist/pink Respiratory: Clear to auscultation, Normal air movement, improved crackles Cardiovascular: Regular rate, Normal S1, Normal S2, No murmurs Abdominal: Active bowel sounds, Soft, no distention, no tenderness Extremities: No edema, Normal pulses, No tenderness/swelling Skin: No Significant rash Neuro: pupils are constricted and sluggish to react Psych/Mental Status: Mental status NL, Mood NL Nurse was there as sharperone during examination laboratory and microbiology Laboratory Tests 08/21/24 03:00 Test 08/21/24 03:00 Range/Units Serum Glucose 91 74-106 mg/dL Microbiology Date/Time Source Procedure Growth Status 08/20/24 07:56 Blood Blood Culture - Preliminary NO GROWTH AFTER 24 HOURS OF INCUBATION. Resulted 08/20/24 04:42 Voided Urine Urine Culture - Preliminary Resulted 08/20/24 03:30 Trachea Gram Stain - Final Resulted 08/20/24 03:30 Trachea Respiratory Culture - Preliminary Resulted Labs and/or images reviewed: Labs reviewed by me, Image(s) reviewed by me Problem List/Assessment/Plan Problem List/Assessment/Plan NEUROLOGY # Acute metabolic or toxic encephalopathy # Grand mal seizures # Status epilepticus - CT showed no acute intracranial abnormalities - currently on midazolam drip - currently intubated and sedated with Versed and Diprivan, fentanyl 08/20 - neurology on board, advised to continue current management - EEG pending - currently on Keppra 1500 mg bid - ordered Ativan p.r.n. for seizures - precautions seizures - Thiamine 100 mg IV q.d. and Folic acid 1 mg IV q.d. - Neurologist recommended phenytoin 1000mg once then 100mg tid for ongoing seizures. CARDIOLOGY RESPIRATORY # Acute hypoxic respiratory failure # possible aspiration pneumonia # influenza type B # SIRS vs Sepsis - currently intubated and sedated with Versed and Diprivan, fentanyl 08/20 - RR 20, VTE 400, FiO2 40%, peep 5 - rapid test positive for type B influenza - Currently on Zosyn for now - ordered pancultures - monitoring labs - Tamiflu GI/LIVER # obesity grade 1 - monitor /KIDNEY/METABOLIC # Mixed Respiratory and metabolic acidosis likely due to above - monitoring with the ABG - monitor renal function and electrolyte imbalance, replace as needed ENDO MSK HEME ID # possible aspiration pneumonia # influenza type B # SIRS vs Sepsis - rapid test positive for type B influenza - Currently on Zosyn for now - ordered pancultures - monitoring labs - tamiflu SKIN LINES Right femoral vein catheter Jordan catheter DRIPS Versed, Diprivan Fetanyl Off from Levophed 08/20 NUTRITION Jevity 30ml/hr hold due to seizures PUD prophylaxis: Pantoprazole DVT prophylaxis: Lovenox Goals of care has been discussed with the family for more than 27 minutes, full code status Critical care time including chart review, discussing with the patient's family excluding procedures: 54 minutes Case discussed with Dr. Daniel Ng discussed with: Other (family) My Orders My Orders Orders - RICH CRAMER RESIDENT Procedure Category Date Status Time Acetaminophen Tablet PHA 08/20/24 In Process (Tylenol Tablet) 16:15 Chest Xray 1 View XY 1/29/25 Resulted 04:00 Abg W/ Co-Ox RT 08/21/24 Logged 04:00 Prolactin LAB 08/21/24 Logged 14:19 Complete Blood Count LAB 08/21/24 Logged 14:19 Comprehensive LAB 08/21/24 Logged Metabolic Panel 14:19 Magnesium LAB 08/21/24 Logged 14:19 Abg W/ Co-Ox RT 08/21/24 Logged 14:19 Date of Service: Aug 22, 2024 Billing Provider: ANDRES CHE MD Common Visit Codes: [id number] CARE 30-74 MIN RICH CRAMER RESIDENT Aug 21, 2024 14:58 ANDRES CHE MD Aug 22, 2024 12:17
[2024-08-21] MEDS: PHENYTOIN IV DILANTIN 1,000 MG in SODIUM CHL 0.9% 250 ML IV ONE (15:00)
[2024-08-21 15:47] LABS: Basophils # (auto) 0.1 10 ^3/uL (0-0.2); Basophils % (auto) 0.6 % (0.0-2.0); Eosinophils # (auto) 0.4 10 ^3/uL (0-0.8); Eosinophils % (auto) 3.6 % (0.0-7.0); Hematocrit 34.2 % (36.0-46.0); Hemoglobin 11.3 g/dL (12.2-16.2); Lymphocytes # (auto) 1.2 10 ^3/uL (0.4-5.4); Mean Corpuscular Hemoglobin 27.1 pg (28.0-32.0); Monocytes # (auto) 0.7 10 ^3/uL (0-1.3); Monocytes % (auto) 7.5 % (0.0-12.0); Neutrophils # (auto) 7.6 10 ^3/uL (1.6-8.6); Neutrophils % (auto) 76.3 % (37.0-80.0); Nucleated Red Blood Cells % 0.1 %; Platelet Count (auto) 240 10^3/uL (140-450); Red Blood Cells 4.18 10^6/uL (4.0-5.20); Red Cell Distribution Width 15.3 % (11.8-14.3)
[2024-08-21 16:10] LABS: Alanine Aminotransferase 14 U/L (7-40); Albumin 3.4 g/dL (3.2-4.8); Alkaline Phosphatase 66 U/L (46-116); Anion Gap 7 (5-15); BUN/Creatinine Ratio 16.1 (10.0-20.0); Blood Urea Nitrogen 10 mg/dL (9-23); Carbon Dioxide 25 mmol/L (20-31); Magnesium 2.1 mg/dL (1.6-2.6); Potassium 3.7 mmol/L (3.5-5.1); Sodium 141 mmol/L (136-145)
[2024-08-21 16:11] LABS: Aspartate Aminotransferase 13 U/L (13-40); Bilirubin, Total 0.5 mg/dL (0.2-1.0); Calcium 8.6 mg/dL (8.7-10.4); Chloride 109 mmol/L (98-107); Glucose 110 mg/dL (74-106); Total Protein 5.6 g/dL (5.7-8.2)
[2024-08-21] MEDS: PHENYTOIN SODIUM 50 MG/ML 2ML VIAL IV SCH (22:16)
[2024-08-22] VITALS (116 sets, daily range): BP systolic 100–216; BP diastolic 52–114; PULSE 62–100; RESP 17–20; TEMP 96.3–100.8; O2SAT 99–100
[2024-08-22 03:40] LABS: Basophils # (auto) 0.1 10 ^3/uL (0-0.2); Basophils % (auto) 0.7 % (0.0-2.0); Eosinophils # (auto) 0.4 10 ^3/uL (0-0.8); Hematocrit 32.6 % (36.0-46.0); Hemoglobin 10.9 g/dL (12.2-16.2); Lymphocytes # (auto) 1.2 10 ^3/uL (0.4-5.4); Lymphocytes % (auto) 15.3 % (10.0-50.0); Mean Corpuscular Hemoglobin 27.6 pg (28.0-32.0); Mean Corpuscular Hgb Conc. 33.5 g/dL (32.0-36.0); Mean Corpuscular Volume 82.4 fL (80.0-100.0); Monocytes # (auto) 0.6 10 ^3/uL (0-1.3); Monocytes % (auto) 7.5 % (0.0-12.0); Neutrophils # (auto) 5.5 10 ^3/uL (1.6-8.6); Neutrophils % (auto) 71.5 % (37.0-80.0); Platelet Count (auto) 221 10^3/uL (140-450); Red Blood Cells 3.96 10^6/uL (4.0-5.20); Red Cell Distribution Width 15.4 % (11.8-14.3); White Blood Cell 7.7 10^3/uL (4.4-10.8)
[2024-08-22 03:48] LABS: Alkaline Phosphatase 114 U/L (46-116); Anion Gap 8 (5-15); Calcium 8.8 mg/dL (8.7-10.4); Carbon Dioxide 24 mmol/L (20-31); Glucose 102 mg/dL (74-106); Potassium 3.5 mmol/L (3.5-5.1); Sodium 141 mmol/L (136-145)
[2024-08-22 03:49] LABS: Albumin 3.4 g/dL (3.2-4.8); BUN/Creatinine Ratio 14.3 (10.0-20.0); Bilirubin, Total 0.4 mg/dL (0.2-1.0); Blood Urea Nitrogen 9 mg/dL (9-23)
[2024-08-22 04:01] LABS: Alanine Aminotransferase 95 U/L (7-40); Aspartate Aminotransferase 96 U/L (13-40); Chloride 109 mmol/L (98-107); Total Protein 5.7 g/dL (5.7-8.2)
--- NOTE | 2024-08-22 05:23 | DVH ---
EXAM: XR Chest, 1 View CLINICAL INDICATION: pna TECHNIQUE: Frontal view of the chest. COMPARISON: XY CHEST XRAY 1 VIEW on DOS: 08/21/24, XY CHEST XRAY 1 VIEW on DOS: 08/20/24 FINDINGS: LUNGS AND PLEURAL SPACES: Pulmonary venous congestion. No consolidation. No pneumothorax. HEART: Unremarkable. No cardiomegaly. MEDIASTINUM: Unremarkable. Normal mediastinal contour. BONES/JOINTS: Unremarkable. No acute fracture. TUBES, LINES AND DEVICES: The endotracheal tube (ETT) is in satisfactory position. OTHER FINDINGS: . . . IMPRESSION: Pulmonary venous congestion.
[2024-08-22 07:48] LABS: Base Excess -2.1 mmol/L (-2.0-3.0)
[2024-08-22 09:07] LABS: Hepatitis B Surface Antigen Negative (Negative)
[2024-08-22 09:38] LABS: Hepatitis A Ab IgM Negative; Hepatitis B Core IgM Negative (Negative); Hepatitis C Antibody Negative (Negative)
--- NOTE | 2024-08-22 10:33 | DVHPN2 ---
Progress Note - Dictate Date Seen: Aug 22, 2024 Medical Necessity Reason Pt with a Central, PICC or Fol: Yes The following are medically ne: Central Line, Jordan Catheter Subjective Ms. Light is a 29 years old female with a history of obesity, seizure disorder, the patient was brought to the [facility] on 08/20/2024 with a chief company of seizure activity. I have seen and examined the patient in the ICU, I have discussed with her nurse, and primary care team She was more seizure, Dilantin started Fentanyl 25 mcg/hour, Versed 13 mg/hour, propofol 45 mcg/minute [phone] mother only speaks Portuguese Hepatitis panel, 08/20/2024: Negative UDS, 08/20/2024: Negative Plasma alcohol, 08/20/2024: 240.6 Urinalysis, 08/20/2024: Unremarkable ABG, 08/20/2024: Respiratory acidosis, metabolic acidosis CBC, 08/20/2024: Unremarkable PT/INR/CBC, 08/21/2024: 313.7/1.33/27.2 CMP, 08/20/2024: Unremarkable Vitamin B12, 08/20/2024: 699 TSH, 08/20/2024: 0.45 EEG, 08/20/2024: Diffuse Beta activity CT head, 05/20/2025: No acute intracranial abnormality. vital signs Vital Sign Date Time Temp Pulse Resp B/P (MAP) Pulse Ox O2 Delivery O2 Flow Rate FiO2 08/22/24 10:00 96.6 63 20 104/56 (72) 99 205.9 08/22/24 09:39 30 08/22/24 09:38 Mechanical Ventilator+ Total Intake and Output 08/21/24 08/21/24 08/22/24 15:00 23:00 07:00 Intake Total 841.44 ml 887.26 ml 447.2 ml Output Total 250 ml 200 ml Balance 841.44 ml 637.26 ml 247.2 ml medications Current Medications Medications Dose Ordered Sig/Nael Route Start Time Stop Time Status Last Admin Dose Admin Propofol 100 ml @ 2.592 mls/ hr Q24H IV 08/20/24 03:00 08/22/24 08:07 25.92 MLS/HR Midazolam HCl 50 ml @ 1 mls/hr Q24H IV 08/20/24 03:30 08/22/24 09:03 15 MLS/HR Pantoprazole Sodium 40 mg DAILY IV 08/20/24 10:00 08/22/24 08:02 40 MG Norepinephrine Bitartrate 250 ml @ 3.75 mls/hr Q24H IV 08/20/24 05:45 Fentanyl Citrate 250 ml @ 2.5 mls/hr Q24H IV 08/20/24 06:00 08/21/24 08:45 2.5 MLS/HR Lorazepam 1 mg Q5MINP PRN IV 08/20/24 10:00 08/21/24 14:27 1 MG Enoxaparin Sodium 40 mg DAILY SC 08/21/24 10:00 08/22/24 08:05 40 MG Thiamine HCl 100 mg DAILY IV 08/21/24 10:00 08/22/24 08:02 100 MG Enteral Nutritional Formula 1,000 ml 30ML/HR GT 08/20/24 12:15 Piperacillin Sod/ Tazobactam Sod 100 ml @ 25 mls/hr Q6HR IV 08/20/24 18:00 08/22/24 06:05 25 MLS/HR Oseltamivir Phosphate 75 mg Q12HR PO 08/20/24 22:00 08/24/24 22:01 08/22/24 08:02 75 MG Docusate Sodium 100 mg BID GT 08/20/24 22:00 08/22/24 08:07 100 MG Acetaminophen 650 mg Q6HP PRN PO 08/20/24 16:15 Dexmedetomidine HCl 400 mcg/ Dextrose 100 ml @ 3.89 mls/hr Q24H IV 08/20/24 19:45 Enalaprilat 0.625 mg Q6HP PRN IV 08/20/24 21:30 Levetiracetam 100 ml @ 400 mls/hr BID IV 08/21/24 10:00 08/22/24 08:07 400 MLS/HR Phenytoin Sodium 100 mg Q8HR IV 08/21/24 22:00 08/22/24 06:05 100 MG objective The patient is well-nourished and well-developed with no distress. The patient is intubated MENTAL STATUS: Responds to painful stimuli CRANIAL NERVES: Pupils are equal, round and reactive.There are corneal reflexes and doll's eyes phenomenon. No signs of facial weakness. There are gagging or coughing reflexes SENSATION: Responses to pain stimuli. MOTOR: Normal tone in the upper and lower extremity. Normal muscle bulk. No fasciculations. No spontaneous movement. REFLEXES: Deep tendon reflexes are symmetrical. No pathological reflexes. CEREBELLAR/COORDINATION: Deferred GAIT/STATION: deferred laboratory and microbiology Laboratory Tests 08/22/24 03:00 Test 08/22/24 03:00 Range/Units Serum Glucose 102 74-106 mg/dL Problem List Coma Status epilepticus Toxic encephalopathy Metabolic encephalopathy Seizure disorder, history unobtainable ? Alcoholism Assessment/Plan Monitoring Supportive treatment MR head later (will order) ICU care Stabilize vitals Respiratory support/vent management Thiamine 100 mg IV q.d. Folic acid 1 mg IV q.d. Ativan for seizure breakthrough Keppra 1500 mg b.i.d. for now Dilantin 100 mg IV Q 8 hours for now Seizure precautions DT precautions DVT prophylaxis Social work RE: Family contact information This medical document was created using an electronic medical record system with [employer] dictation system. Although this document has been carefully reviewed, there may still be some phonetic and typographical errors. These areas are purely typographical due to imperfections of the software programs, and do not reflect any compromise in the patient's medical care. Prognosis guarded Plan discussed with: Other Critical Care Time(min): 30 RODRIGO SEPULVEDA MD Aug 22, 2024 10:33
--- NOTE | 2024-08-22 10:50 | DVHPNRES ---
Progress Note Date Seen: Aug 22, 2024 Resident Creating Document: RICH CRAMER RESIDENT Medical Necessity Reason Pt with a Central, PICC or Fol: Yes The following are medically ne: Central Line, Jordan Catheter Subjective Review of Systems Ms. Light is a 29 years old female with a PMH of seizures, obesity presented to the ED with the chief complaints of seizures. Patient seen and examined at the bedside. Unable to obtain ROS due to patient clinical status. Patient is currently intubated, on mechanical ventilation and sedated. Yesterday Patient has bee having multiple episodes of seizure activity , raised keppra and started phenytoin. monitoring. Cutting down the sedation. Cpap trail tomorrow. Patient reports: No new complaints Objective vital signs Vital Sign Date Time Temp Pulse Resp B/P (MAP) Pulse Ox O2 Delivery O2 Flow Rate FiO2 08/22/24 10:30 96.4 64 20 105/54 (71) 99 205.5 08/22/24 09:39 30 08/22/24 09:38 Mechanical Ventilator+ Total Intake and Output 08/21/24 08/21/24 08/22/24 15:00 23:00 07:00 Intake Total 841.44 ml 887.26 ml 447.2 ml Output Total 250 ml 200 ml Balance 841.44 ml 637.26 ml 247.2 ml medications Current Medications Medications Dose Ordered Sig/Nael Route Start Time Stop Time Status Last Admin Dose Admin Propofol 100 ml @ 2.592 mls/ hr Q24H IV 08/20/24 03:00 08/22/24 08:07 25.92 MLS/HR Midazolam HCl 50 ml @ 1 mls/hr Q24H IV 08/20/24 03:30 08/22/24 09:03 15 MLS/HR Pantoprazole Sodium 40 mg DAILY IV 08/20/24 10:00 08/22/24 08:02 40 MG Norepinephrine Bitartrate 250 ml @ 3.75 mls/hr Q24H IV 08/20/24 05:45 Fentanyl Citrate 250 ml @ 2.5 mls/hr Q24H IV 08/20/24 06:00 08/21/24 08:45 2.5 MLS/HR Lorazepam 1 mg Q5MINP PRN IV 08/20/24 10:00 08/21/24 14:27 1 MG Enoxaparin Sodium 40 mg DAILY SC 08/21/24 10:00 08/22/24 08:05 40 MG Thiamine HCl 100 mg DAILY IV 08/21/24 10:00 08/22/24 08:02 100 MG Enteral Nutritional Formula 1,000 ml 30ML/HR GT 08/20/24 12:15 Piperacillin Sod/ Tazobactam Sod 100 ml @ 25 mls/hr Q6HR IV 08/20/24 18:00 08/22/24 06:05 25 MLS/HR Oseltamivir Phosphate 75 mg Q12HR PO 08/20/24 22:00 08/24/24 22:01 08/22/24 08:02 75 MG Docusate Sodium 100 mg BID GT 08/20/24 22:00 08/22/24 08:07 100 MG Acetaminophen 650 mg Q6HP PRN PO 08/20/24 16:15 Dexmedetomidine HCl 400 mcg/ Dextrose 100 ml @ 3.89 mls/hr Q24H IV 08/20/24 19:45 Enalaprilat 0.625 mg Q6HP PRN IV 08/20/24 21:30 Levetiracetam 100 ml @ 400 mls/hr BID IV 08/21/24 10:00 08/22/24 08:07 400 MLS/HR Phenytoin Sodium 100 mg Q8HR IV 08/21/24 22:00 08/22/24 06:05 100 MG Examination Pt is lying on bed General Appearance: sedated, intubated mechanical ventilation HEENT: Atraumatic, Mucous membranes moist/pink Respiratory: Clear to auscultation, Normal air movement, improved crackles Cardiovascular: Regular rate, Normal S1, Normal S2, No murmurs Abdominal: Active bowel sounds, Soft, no distention, no tenderness Extremities: No edema, Normal pulses, No tenderness/swelling Skin: No Significant rash Neuro: pupils are constricted and sluggish to react Psych/Mental Status: Mental status NL, Mood NL Nurse was there as sharperone during examination laboratory and microbiology Laboratory Tests 08/22/24 03:00 Test 08/22/24 03:00 Range/Units Serum Glucose 102 74-106 mg/dL Microbiology Date/Time Source Procedure Growth Status 08/20/24 14:36 Nose MRSA Screen - Final Complete 08/20/24 07:56 Blood Blood Culture - Preliminary NO GROWTH AFTER 48 HOURS OF INCUBATION. Resulted 08/20/24 04:42 Voided Urine Urine Culture - Final Complete Labs and/or images reviewed: Labs reviewed by me, Image(s) reviewed by me Problem List/Assessment/Plan Problem List/Assessment/Plan NEUROLOGY # Acute metabolic or toxic encephalopathy # Grand mal seizures # Status epilepticus - CT showed no acute intracranial abnormalities - currently on midazolam drip - currently intubated and sedated with Versed and Diprivan, fentanyl 08/20 - neurology on board, advised to continue current management - EEG pending - currently on Keppra 1500 mg bid - ordered Ativan p.r.n. for seizures - precautions seizures - Thiamine 100 mg IV q.d. and Folic acid 1 mg IV q.d. - Neurologist recommended phenytoin 1000mg once then 100mg tid for ongoing seizures. CARDIOLOGY RESPIRATORY # Acute hypoxic respiratory failure # possible aspiration pneumonia # influenza type B # SIRS vs Sepsis - currently intubated and sedated with Versed and Diprivan, fentanyl 08/20 - RR 20, VTE 400, FiO2 30%, peep 5 - rapid test positive for type B influenza - Currently on Zosyn for now - ordered pancultures - monitoring labs - Tamiflu GI/LIVER # obesity grade 1 - monitor /KIDNEY/METABOLIC # Mixed Respiratory and metabolic acidosis likely due to above - monitoring with the ABG - monitor renal function and electrolyte imbalance, replace as needed ENDO MSK HEME ID # possible aspiration pneumonia # influenza type B # SIRS vs Sepsis - rapid test positive for type B influenza - Currently on Zosyn for now - ordered pancultures - monitoring labs - tamiflu SKIN LINES Itubation 08/20 Right femoral vein catheter 08/20 Jordan catheter 08/20 DRIPS Versed, Diprivan Fetanyl Off from Levophed 08/20 NUTRITION Jevity 30ml/hr hold due to seizures PUD prophylaxis: Pantoprazole DVT prophylaxis: Lovenox Goals of care has been discussed with the family for more than 27 minutes, full code status Critical care time including chart review, discussing with the patient's family excluding procedures: 51 minutes Case discussed with Dr. Che.CPAP tomorrow. Plan discussed with: Other (family) My Orders My Orders Orders - RICH CRAMER RESIDENT Procedure Category Date Status Time Abg W/ Co-Ox RT 08/21/24 Logged 14:19 Abg W/ Co-Ox RT 08/22/24 Logged 04:00 Chest Xray 1 View XY 08/22/24 Resulted 04:00 Phenytoin (Dilantin) LAB 08/23/24 Verified 04:00 Phenytoin (Dilantin) LAB 08/22/24 Logged 10:01 Potassium Chl PHA 08/22/24 In Process 20meq/100ml 10:15 Date of Service: Aug 22, 2024 Billing Provider: ANDRES CHE MD Common Visit Codes: [id number] CARE 30-74 MIN RICH CRAMER RESIDENT Aug 22, 2024 10:50 ANDRES CHE MD Aug 25, 2024 15:31
[2024-08-22] MEDS: POTASSIUM CHL 20MEQ/100ML 100 ML IV ONE (10:55)
[2024-08-22] MEDS: ACETAMINOPHEN 325 MG TAB PO PRN (17:36)
[2024-08-23] VITALS (117 sets, daily range): BP systolic 101–183; BP diastolic 50–105; PULSE 65–88; RESP 11–22; TEMP 98.1–99.9; O2SAT 98–100
[2024-08-23 04:13] LABS: Basophils # (auto) 0 10 ^3/uL (0-0.2); Basophils % (auto) 0.6 % (0.0-2.0); Eosinophils # (auto) 0.4 10 ^3/uL (0-0.8); Eosinophils % (auto) 6.4 % (0.0-7.0); Hematocrit 33.4 % (36.0-46.0); Hemoglobin 10.9 g/dL (12.2-16.2); Lymphocytes # (auto) 1.6 10 ^3/uL (0.4-5.4); Lymphocytes % (auto) 23.8 % (10.0-50.0); Mean Corpuscular Hemoglobin 27.1 pg (28.0-32.0); Mean Corpuscular Hgb Conc. 32.8 g/dL (32.0-36.0); Mean Corpuscular Volume 82.6 fL (80.0-100.0); Monocytes # (auto) 0.6 10 ^3/uL (0-1.3); Monocytes % (auto) 8.7 % (0.0-12.0); Neutrophils % (auto) 60.5 % (37.0-80.0); Nucleated Red Blood Cells % 0.1 %; Platelet Count (auto) 242 10^3/uL (140-450); Red Blood Cells 4.04 10^6/uL (4.0-5.20); Red Cell Distribution Width 15.1 % (11.8-14.3); White Blood Cell 6.5 10^3/uL (4.4-10.8)
[2024-08-23 04:26] LABS: Albumin 3.7 g/dL (3.2-4.8); Alkaline Phosphatase 105 U/L (46-116); Anion Gap 8 (5-15); Aspartate Aminotransferase 34 U/L (13-40); BUN/Creatinine Ratio 8.8 (10.0-20.0); Carbon Dioxide 22 mmol/L (20-31); Glucose 91 mg/dL (74-106); Magnesium 1.8 mg/dL (1.6-2.6); Potassium 3.6 mmol/L (3.5-5.1); Sodium 139 mmol/L (136-145)
[2024-08-23 04:27] LABS: Bilirubin, Total 0.5 mg/dL (0.2-1.0); Total Protein 5.9 g/dL (5.7-8.2)
[2024-08-23 04:31] LABS: Alanine Aminotransferase 60 U/L (7-40); Blood Urea Nitrogen 5 mg/dL (9-23); Calcium 8.5 mg/dL (8.7-10.4); Chloride 109 mmol/L (98-107)
--- NOTE | 2024-08-23 05:21 | DVH ---
CHEST RADIOGRAPH Indication: pna Technique: Single frontal view of the chest was obtained Comparison: XY CHEST XRAY 1 VIEW on DOS: 08/22/24 FINDINGS: Lines and Tubes: The endotracheal tube terminates 1.2 cm above omid. The enteric tube courses below the left hemidiaphragm and the tip extends outside the field of view. Lungs: Left basilar opacity. Pleura: No effusion. No pneumothorax. Cardiomediastinal contours: Unremarkable Bones: No acute osseous abnormality. IMPRESSION: 1. Left basilar opacity which may reflect atelectasis or pneumonia.
[2024-08-23 06:17] LABS: Base Excess -1.9 mmol/L (-2.0-3.0)
[2024-08-23] MEDS: MAGNESIUM SULFATE 1GM/100ML 100 ML IV ONE (06:33)
[2024-08-23] MEDS: POTASSIUM CHL 20MEQ/100ML 100 ML IV ONE (07:19)
--- NOTE | 2024-08-23 12:40 | DVHPNRES ---
Progress Note Date Seen: Aug 23, 2024 Resident Creating Document: RICH CRAMER RESIDENT Medical Necessity Reason Pt with a Central, PICC or Fol: Yes The following are medically ne: Central Line, Jordan Catheter Subjective Review of Systems Ms. Light is a 29 years old female with a PMH of seizures, obesity presented to the ED with the chief complaints of seizures. Patient seen and examined at the bedside. Unable to obtain ROS due to patient clinical status. Patient is currently intubated, on mechanical ventilation and sedated. unable to do CPAP trial today because patient has been developing seizure activity with cutting down on sedation, Back on sedation. Cpap tomorrow. Changes from previous H/P or p: No Changes Objective vital signs Vital Sign Date Time Temp Pulse Resp B/P (MAP) Pulse Ox O2 Delivery O2 Flow Rate FiO2 08/23/24 11:57 71 08/23/24 11:47 30 08/23/24 11:46 20 100 Mechanical Ventilator+ 08/23/24 11:45 98.6 124/85 (98) 209.5 Total Intake and Output 08/22/24 08/22/24 08/23/24 15:00 23:00 07:00 Intake Total 837.764 ml 417.444 ml 445.944 ml Output Total 700 ml 1100 ml Balance 837.764 ml -282.556 ml -654.056 ml medications Current Medications Medications Dose Ordered Sig/Nael Route Start Time Stop Time Status Last Admin Dose Admin Propofol 100 ml @ 2.592 mls/ hr Q24H IV 08/20/24 03:00 08/23/24 10:56 12.96 MLS/HR Midazolam HCl 50 ml @ 1 mls/hr Q24H IV 08/20/24 03:30 08/23/24 10:56 11 MLS/HR Pantoprazole Sodium 40 mg DAILY IV 08/20/24 10:00 08/23/24 07:22 40 MG Fentanyl Citrate 250 ml @ 2.5 mls/hr Q24H IV 08/20/24 06:00 08/21/24 08:45 2.5 MLS/HR Lorazepam 1 mg Q5MINP PRN IV 08/20/24 10:00 08/22/24 17:51 1 MG Enoxaparin Sodium 40 mg DAILY SC 08/21/24 10:00 08/23/24 07:23 40 MG Thiamine HCl 100 mg DAILY IV 08/21/24 10:00 08/23/24 07:22 100 MG Enteral Nutritional Formula 1,000 ml 30ML/HR GT 08/20/24 12:15 Piperacillin Sod/ Tazobactam Sod 100 ml @ 25 mls/hr Q6HR IV 08/20/24 18:00 08/23/24 10:55 25 MLS/HR Oseltamivir Phosphate 75 mg Q12HR PO 08/20/24 22:00 08/24/24 22:01 08/23/24 07:22 75 MG Docusate Sodium 100 mg BID GT 08/20/24 22:00 08/23/24 07:22 100 MG Acetaminophen 650 mg Q6HP PRN PO 08/20/24 16:15 08/22/24 17:36 650 MG Dexmedetomidine HCl 400 mcg/ Dextrose 100 ml @ 3.89 mls/hr Q24H IV 08/20/24 19:45 Enalaprilat 0.625 mg Q6HP PRN IV 08/20/24 21:30 Levetiracetam 100 ml @ 400 mls/hr BID IV 08/21/24 10:00 08/23/24 07:23 400 MLS/HR Phenytoin Sodium 100 mg Q8HR IV 08/21/24 22:00 08/23/24 05:39 100 MG Examination Pt is lying on bed General Appearance: sedated, intubated mechanical ventilation HEENT: Atraumatic, Mucous membranes moist/pink Respiratory: Clear to auscultation, Normal air movement, improved crackles Cardiovascular: Regular rate, Normal S1, Normal S2, No murmurs Abdominal: Active bowel sounds, Soft, no distention, no tenderness Extremities: No edema, Normal pulses, No tenderness/swelling Skin: No Significant rash Neuro: pupils are constricted and sluggish to react Psych/Mental Status: Mental status NL, Mood NL Nurse was there as sharperone during examination laboratory and microbiology Laboratory Tests 08/23/24 03:30 Test 08/23/24 03:30 Range/Units Serum Glucose 91 74-106 mg/dL Microbiology Date/Time Source Procedure Growth Status 08/20/24 14:36 Nose MRSA Screen - Final Complete 08/20/24 07:56 Blood Blood Culture - Preliminary NO GROWTH AFTER 72 HOURS OF INCUBATION. Resulted 08/20/24 04:42 Voided Urine Urine Culture - Final Complete Labs and/or images reviewed: Labs reviewed by me, Image(s) reviewed by me Problem List/Assessment/Plan Problem List/Assessment/Plan NEUROLOGY # Acute metabolic or toxic encephalopathy # Grand mal seizures # Status epilepticus - CT showed no acute intracranial abnormalities - currently on midazolam drip - currently intubated and sedated with Versed and Diprivan, fentanyl 08/20 - neurology on board, advised to continue current management - EEG pending - currently on Keppra 1500 mg bid - ordered Ativan p.r.n. for seizures - precautions seizures - Thiamine 100 mg IV q.d. and Folic acid 1 mg IV q.d. - Neurologist recommended phenytoin 1000mg once then 100mg tid for ongoing seizures. CARDIOLOGY RESPIRATORY # Acute hypoxic respiratory failure # possible aspiration pneumonia # influenza type B # SIRS vs Sepsis - ICU status - currently intubated and sedated with Versed and Diprivan, fentanyl 08/20 - RR 20, VTE 400, FiO2 30%, peep 5 - rapid test positive for type B influenza - Currently on Zosyn for now - ordered pancultures - monitoring labs - Tamiflu GI/LIVER # obesity grade 1 - monitor /KIDNEY/METABOLIC # Mixed Respiratory and metabolic acidosis likely due to above - monitoring with the ABG - monitor renal function and electrolyte imbalance, replace as needed ENDO MSK HEME ID # possible aspiration pneumonia # influenza type B # SIRS vs Sepsis - rapid test positive for type B influenza - Currently on Zosyn for now - ordered pancultures - monitoring labs - tamiflu SKIN LINES Itubation 08/20 Right femoral vein catheter 08/20 Jordan catheter 08/20 DRIPS Versed, Diprivan Fetanyl Off from Levophed 08/20 NUTRITION Jevity 30ml/hr hold due to seizures PUD prophylaxis: Pantoprazole DVT prophylaxis: Lovenox Goals of care has been discussed with the family for more than 27 minutes, full code status Critical care time including chart review, discussing with the patient's family excluding procedures: 54 minutes Case discussed with Dr. Goss. CPAP tomorrow. Plan discussed with: Other (Family) My Orders My Orders Orders - RICH CRAMER RESIDENT Procedure Category Date Status Time Chest Xray 1 View XY 08/23/24 Resulted 04:00 Abg W/ Co-Ox RT 08/23/24 Logged 04:00 RICH CRAMER RESIDENT Aug 23, 2024 12:40
[2024-08-23] MEDS ORDERED: LACO100T3 PO (15:37)
[2024-08-23] MEDS ORDERED: METO-158 PO (15:37)
[2024-08-23] MEDS ORDERED: LEVE500T40 PO (15:37)
[2024-08-23] MEDS ORDERED: GABA-1308 PO (15:37)
[2024-08-23] MEDS: PHENYTOIN IV DILANTIN 500 MG in SODIUM CHL 0.9% 100 ML IV ONE (16:30)
--- NOTE | 2024-08-23 17:45 | DVHPN2 ---
Progress Note - Dictate Date Seen: Aug 23, 2024 Medical Necessity Reason Pt with a Central, PICC or Fol: Yes The following are medically ne: Central Line, Jordan Catheter Subjective Ms. Light is a 29 years old female with a history of obesity, seizure disorder, the patient was brought to the [facility] on 08/20/2024 with a chief company of seizure activity. I have seen and examined the patient in the ICU, I have discussed with her nurse, and primary care team With less sedation, the patient was had seizure yesterday She has no more seizures activity today With our bilingual staff's help, I phone-interviewed her mother. She was not a good historian She reports the patient was 1st seizure was about two weeks ago, however mother did not witnessed seizure and she is not aware of the details. On 08/21/2024, the patient was asked her mom looking at her kids because she needs to go out Mother realized the patient was drinks alcohol one day a week, maybe three drinks daily She was no history of head trauma, intracranial infection, family history of seizure Fentanyl 75 mcg/hour, propofol 25 mcg/minute Hepatitis panel, 08/20/2024: Negative Dilantin, 08/22/2024: 10.6, 08/23/2024: 12.5 UDS, 08/20/2024: Negative Plasma alcohol, 08/20/2024: 240.6 Urinalysis, 08/20/2024: Unremarkable ABG, 08/20/2024: Respiratory acidosis, metabolic acidosis CBC, 08/20/2024: Unremarkable PT/INR/CBC, 08/21/2024: 313.7/1.33/27.2 CMP, 08/20/2024: Unremarkable Albumin, 08/23/2024: 3.7 Vitamin B12, 08/20/2024: 699 TSH, 08/20/2024: 0.45 EEG, 08/20/2024: Diffuse Beta activity CT head, 05/20/2025: No acute intracranial abnormality. vital signs Vital Sign Date Time Temp Pulse Resp B/P (MAP) Pulse Ox O2 Delivery O2 Flow Rate FiO2 08/23/24 17:00 99.3 74 20 116/67 (83) 100 210.7 08/23/24 16:12 30 08/23/24 15:44 Mechanical Ventilator+ Total Intake and Output 08/22/24 08/22/24 08/23/24 15:00 23:00 07:00 Intake Total 837.764 ml 417.444 ml 445.944 ml Output Total 700 ml 1100 ml Balance 837.764 ml -282.556 ml -654.056 ml medications Current Medications Medications Dose Ordered Sig/Nael Route Start Time Stop Time Status Last Admin Dose Admin Propofol 100 ml @ 2.592 mls/ hr Q24H IV 08/20/24 03:00 08/23/24 10:56 12.96 MLS/HR Midazolam HCl 50 ml @ 1 mls/hr Q24H IV 08/20/24 03:30 08/23/24 14:23 11 MLS/HR Pantoprazole Sodium 40 mg DAILY IV 08/20/24 10:00 08/23/24 07:22 40 MG Fentanyl Citrate 250 ml @ 2.5 mls/hr Q24H IV 08/20/24 06:00 08/21/24 08:45 2.5 MLS/HR Lorazepam 1 mg Q5MINP PRN IV 08/20/24 10:00 08/22/24 17:51 1 MG Enoxaparin Sodium 40 mg DAILY SC 08/21/24 10:00 08/23/24 07:23 40 MG Thiamine HCl 100 mg DAILY IV 08/21/24 10:00 08/23/24 07:22 100 MG Enteral Nutritional Formula 1,000 ml 30ML/HR GT 08/20/24 12:15 Piperacillin Sod/ Tazobactam Sod 100 ml @ 25 mls/hr Q6HR IV 08/20/24 18:00 08/23/24 10:55 25 MLS/HR Oseltamivir Phosphate 75 mg Q12HR PO 08/20/24 22:00 08/24/24 22:01 08/23/24 07:22 75 MG Docusate Sodium 100 mg BID GT 08/20/24 22:00 08/23/24 07:22 100 MG Acetaminophen 650 mg Q6HP PRN PO 08/20/24 16:15 08/22/24 17:36 650 MG Dexmedetomidine HCl 400 mcg/ Dextrose 100 ml @ 3.89 mls/hr Q24H IV 08/20/24 19:45 Enalaprilat 0.625 mg Q6HP PRN IV 08/20/24 21:30 Levetiracetam 100 ml @ 400 mls/hr BID IV 08/21/24 10:00 08/23/24 07:23 400 MLS/HR Phenytoin Sodium 100 mg Q8HR IV 08/21/24 22:00 08/23/24 14:21 100 MG objective The patient is well-nourished and well-developed with no distress. The patient is intubated MENTAL STATUS: Responds to painful stimuli CRANIAL NERVES: Pupils are equal, round and reactive.There are corneal reflexes and doll's eyes phenomenon. No signs of facial weakness. There are gagging or coughing reflexes SENSATION: Responses to pain stimuli. MOTOR: Normal tone in the upper and lower extremity. Normal muscle bulk. No fasciculations. No spontaneous movement. REFLEXES: Deep tendon reflexes are symmetrical. No pathological reflexes. CEREBELLAR/COORDINATION: Deferred GAIT/STATION: deferred laboratory and microbiology Laboratory Tests 08/23/24 03:30 Test 08/23/24 03:30 Range/Units Serum Glucose 91 74-106 mg/dL Problem List Coma Status epilepticus Toxic encephalopathy Metabolic encephalopathy Seizure disorder, history unobtainable ? Alcoholism Assessment/Plan Monitoring Supportive treatment MR head later (will order) Dilantin level in the morning ICU care Stabilize vitals Respiratory support/vent management Thiamine 100 mg IV q.d. Folic acid 1 mg IV q.d. Ativan for seizure breakthrough Keppra 1500 mg b.i.d. for now Dilantin 100 mg IV Q 8 hours for now Extra Dilantin, 500 mg IV today Seizure precautions DT precautions DVT prophylaxis More recommendation per clinical course This medical document was created using an electronic medical record system with [employer] dictation system. Although this document has been carefully reviewed, there may still be some phonetic and typographical errors. These areas are purely typographical due to imperfections of the software programs, and do not reflect any compromise in the patient's medical care. Prognosis guarded Plan discussed with: Other Critical Care Time(min): 40 RODRIGO SEPULVEDA MD Aug 23, 2024 17:45
[2024-08-24] VITALS (115 sets, daily range): BP systolic 90–180; BP diastolic 42–104; PULSE 64–100; RESP 11–23; TEMP 97.7–100.6; O2SAT 94–100
[2024-08-24 04:05] LABS: Basophils # (auto) 0 10 ^3/uL (0-0.2); Basophils % (auto) 0.9 % (0.0-2.0); Eosinophils # (auto) 0.4 10 ^3/uL (0-0.8); Hematocrit 30.5 % (36.0-46.0); Hemoglobin 10.4 g/dL (12.2-16.2); Lymphocytes # (auto) 1.4 10 ^3/uL (0.4-5.4); Lymphocytes % (auto) 26.8 % (10.0-50.0); Mean Corpuscular Hemoglobin 27.8 pg (28.0-32.0); Mean Corpuscular Hgb Conc. 34.2 g/dL (32.0-36.0); Mean Corpuscular Volume 81.4 fL (80.0-100.0); Monocytes # (auto) 0.4 10 ^3/uL (0-1.3); Monocytes % (auto) 8.4 % (0.0-12.0); Neutrophils # (auto) 2.9 10 ^3/uL (1.6-8.6); Neutrophils % (auto) 55.9 % (37.0-80.0); Platelet Count (auto) 238 10^3/uL (140-450); Red Blood Cells 3.75 10^6/uL (4.0-5.20); Red Cell Distribution Width 14.8 % (11.8-14.3); White Blood Cell 5.1 10^3/uL (4.4-10.8)
[2024-08-24 04:26] LABS: Alanine Aminotransferase 40 U/L (7-40); Albumin 3.4 g/dL (3.2-4.8); Alkaline Phosphatase 100 U/L (46-116); Anion Gap 11 (5-15); Aspartate Aminotransferase 23 U/L (13-40); BUN/Creatinine Ratio 11.3 (10.0-20.0); Bilirubin, Total 0.3 mg/dL (0.2-1.0); Blood Urea Nitrogen 6 mg/dL (9-23); Calcium 8.9 mg/dL (8.7-10.4); Carbon Dioxide 22 mmol/L (20-31); Chloride 107 mmol/L (98-107); Glucose 84 mg/dL (74-106); Magnesium 1.8 mg/dL (1.6-2.6); Potassium 3.4 mmol/L (3.5-5.1); Sodium 140 mmol/L (136-145); Total Protein 5.7 g/dL (5.7-8.2)
--- NOTE | 2024-08-24 06:09 | DVH ---
CHEST RADIOGRAPH Indication: pna Technique: Single frontal view of the chest was obtained COMPARISON: XY CHEST XRAY 1 VIEW on DOS: 08/23/24, XY CHEST XRAY 1 VIEW on DOS: 08/22/24, XY CHEST XRAY 1 VIEW on DOS: 08/21/24, XY CHEST XRAY 1 VIEW on DOS: 08/20/24 FINDINGS: Lines and Tubes: Endotracheal tube and enteric catheter in satisfactory position. Lungs: Clear Pleura: No effusion. No pneumothorax. Cardiomediastinal contours: Unremarkable Bones: Unremarkable IMPRESSION: Lines and tubes in satisfactory position. No significant interval change.
[2024-08-24] MEDS: POTASSIUM CHL 20MEQ/100ML 100 ML IV ONE (06:16)
[2024-08-24 07:20] LABS: Base Excess -3.5 mmol/L (-2.0-3.0)
--- NOTE | 2024-08-24 09:23 | DVHPN2 ---
Subjective 08/24 patient was given, than load of Dilantin yesterday. We will try weaning trial. We will hold off on making any changes to antiseizure antiepileptics today. Defer to Neurology. Patient appears euvolemic, on several sedatives and vent to manage by RT. Enteral feeds via G-tube. Vitals stable. On exam patient has fixed pupils both this was on sedatives. Cough and gag present. We will try weaning trial today, otherwise no significant changes today. Reviewed: H&P Changes from previous H/P or p: No Changes General: Per HPI Objective Vitals Vital Signs Date Time Temp Pulse Resp B/P (MAP) Pulse Ox O2 Delivery O2 Flow Rate FiO2 08/24/24 08:45 98.4 68 20 98/51 (67) 100 209.1 08/24/24 08:00 Mechanical Ventilator+ 30 30 Intake/Output Intake and Output 08/24/24 07:00 Intake Total 1915.288 ml Output Total 1400 ml Balance 515.288 ml Intake Oral 110 ml IV Total 1735.288 ml Tube Feeding 70 ml Output Urine Total 1400 ml Exam Patient appears euvolemic, on several sedatives and vent to manage by RT. Enteral feeds via G-tube. Vitals stable. On exam patient has fixed pupils both this was on sedatives. Cough and gag present. Medications Current Medications Medications Dose Ordered Sig/Nael Route Start Time Stop Time Status Last Admin Dose Admin Propofol 100 ml @ 2.592 mls/ hr Q24H IV 08/20/24 03:00 08/24/24 07:57 18.144 MLS/HR Midazolam HCl 50 ml @ 1 mls/hr Q24H IV 08/20/24 03:30 08/24/24 06:22 13 MLS/HR Pantoprazole Sodium 40 mg DAILY IV 08/20/24 10:00 08/24/24 07:58 40 MG Fentanyl Citrate 250 ml @ 2.5 mls/hr Q24H IV 08/20/24 06:00 08/21/24 08:45 2.5 MLS/HR Lorazepam 1 mg Q5MINP PRN IV 08/20/24 10:00 08/22/24 17:51 1 MG Enoxaparin Sodium 40 mg DAILY SC 08/21/24 10:00 08/24/24 07:58 40 MG Thiamine HCl 100 mg DAILY IV 08/21/24 10:00 08/24/24 07:58 100 MG Enteral Nutritional Formula 1,000 ml 30ML/HR GT 08/20/24 12:15 Piperacillin Sod/ Tazobactam Sod 100 ml @ 25 mls/hr Q6HR IV 08/20/24 18:00 08/24/24 05:37 25 MLS/HR Oseltamivir Phosphate 75 mg Q12HR PO 08/20/24 22:00 08/24/24 22:01 08/24/24 07:58 75 MG Docusate Sodium 100 mg BID GT 08/20/24 22:00 08/23/24 21:18 100 MG Acetaminophen 650 mg Q6HP PRN PO 08/20/24 16:15 08/22/24 17:36 650 MG Dexmedetomidine HCl 400 mcg/ Dextrose 100 ml @ 3.89 mls/hr Q24H IV 08/20/24 19:45 Enalaprilat 0.625 mg Q6HP PRN IV 08/20/24 21:30 Levetiracetam 100 ml @ 400 mls/hr BID IV 08/21/24 10:00 08/24/24 07:59 400 MLS/HR Phenytoin Sodium 120 mg Q8HR IV 08/24/24 14:00 UNV Laboratory Results Laboratory Tests 08/24/24 03:30 Chemistry Test 08/24/24 03:30 Albumin 3.4 g/dL (3.2-4.8) Calcium Level 8.9 mg/dL (8.7-10.4) Magnesium Level 1.8 mg/dL (1.6-2.6) Total Protein 5.7 g/dL (5.7-8.2) LFT Test 08/24/24 03:30 Alanine Aminotransferase (ALT) 40 U/L (7-40) Alkaline Phosphatase 100 U/L (46-116) Aspartate Amino Transferase (AST) 23 U/L (13-40) Total Bilirubin 0.3 mg/dL (0.2-1.0) Urinalysis Test 08/20/24 01:50 Urine Color Colorless (Yellow) Urine Clarity Clear (Clear) Urine pH 6.0 (5.0-9.0) Urine Specific [place] 1.002 (1.001-1.035) Urine Protein Negative (Negative) Urine Ketones Negative (Negative) Urine Blood Negative /uL (Negative) Urine Nitrite Negative (Negative) Urine Bilirubin Negative (Negative) Urine Urobilinogen Normal mg/dL (Negative) Urine Leukocyte Esterase Negative /uL (Negative) Urine RBC <1 /hpf (0 - 4) Urine Microscopic WBC < 1 /HPF (0-5) Urine Squamous Epithelial Cells Few /hpf (<5) Urine Bacteria Few /hpf (None Seen) H Urine Glucose Normal mg/dL (Normal) Urine Test Negative (Negative) Blood Gas Results Test 08/24/24 07:14 Arterial Blood pH 7.435 (7.350-7.450) FiO2 % 30.0 Microbiology Microbiology Date/Time Source Procedure Growth Status 08/20/24 14:36 Nose MRSA Screen - Final Complete 08/20/24 07:56 Blood Blood Culture - Preliminary NO GROWTH AFTER 72 HOURS OF INCUBATION. Resulted 08/20/24 04:42 Voided Urine Urine Culture - Final Complete Labs and/or images reviewed: Labs reviewed by me, Image(s) reviewed by me Assessment/Plan Assessment/Plan 08/24 patient was given, than load of Dilantin yesterday. We will try weaning trial. We will hold off on making any changes to antiseizure antiepileptics today. Defer to Neurology. Patient appears euvolemic, on several sedatives and vent to manage by RT. Enteral feeds via G-tube. Vitals stable. On exam patient has fixed pupils both this was on sedatives. Cough and gag present. We will try weaning trial today, otherwise no significant changes today. Room to have lower propofol and use Versed, Keppra, Dilantin to control seizures/epilepticus. Fentanyl for pain/anxiety. Weaning/CPAP trial today NEUROLOGY # Acute metabolic or toxic encephalopathy # Grand mal seizures # Status epilepticus - CT showed no acute intracranial abnormalities - currently on midazolam drip - currently intubated and sedated with Versed and Diprivan, fentanyl 08/20 - neurology on board, advised to continue current management - EEG pending - currently on Keppra 1500 mg bid - ordered Ativan p.r.n. for seizures - precautions seizures - Thiamine 100 mg IV q.d. and Folic acid 1 mg IV q.d. - Neurologist recommended phenytoin 1000mg once then 100mg tid for ongoing seizures. 08/23 given another bolus of 500. CARDIOLOGY RESPIRATORY # Acute hypoxic respiratory failure # possible aspiration pneumonia # influenza type B # SIRS vs Sepsis - ICU status - currently intubated and sedated with propofol, Versed and Diprivan, fentanyl 08/20 - RR 20, VTE 400, FiO2 30%, peep 5 - rapid test positive for type B influenza - Currently on Zosyn for now - ordered pancultures - monitoring labs - Tamiflu to finish 08/24 GI/LIVER # obesity grade 1 - monitor /KIDNEY/METABOLIC # Mixed Respiratory and metabolic acidosis likely due to above - monitoring with the ABG - monitor renal function and electrolyte imbalance, replace as needed ENDO MSK HEME ID # possible aspiration pneumonia # influenza type B # SIRS vs Sepsis - rapid test positive for type B influenza - Currently on Zosyn for now - ordered pancultures - monitoring labs - tamiflu SKIN LINES Itubation 08/20 Right femoral vein catheter 08/20 Jordan catheter 08/20 DRIPS Versed, Propofol Diprivan Fetanyl Off from Levophed 08/20 NUTRITION Jevity 30ml/hr PUD prophylaxis: Pantoprazole DVT prophylaxis: Lovenox Goals of care has been discussed with the family for more than 27 minutes, full code status Critical care time including chart review, discussing with the patient's family excluding procedures: 54 minutes Plan discussed with: Other My Orders Orders - ALINA MUIR MD Procedure Category Date Status Time Phenytoin Iv Dilantin PHA 08/24/24 Logged 14:00 Phenytoin Iv Dilantin PHA 08/24/24 Transmitted 14:00 Date of Service: Aug 24, 2024 Billing Provider: ALINA MUIR MD Common Visit Codes: [id number] CARE-EACH +30MIN ALINA MUIR MD Aug 24, 2024 09:23
--- NOTE | 2024-08-24 13:13 | DVH ---
CHEST RADIOGRAPH Indication: ETT PLACEMENT Technique: Single frontal view of the chest was obtained COMPARISON: XY CHEST XRAY 1 VIEW on DOS: 08/24/24, XY CHEST XRAY 1 VIEW on DOS: 08/23/24, XY CHEST XRAY 1 VIEW on DOS: 08/22/24, XY CHEST XRAY 1 VIEW on DOS: 08/21/24, XY CHEST XRAY 1 VIEW on DOS: 08/20/24 FINDINGS: Lines and Tubes: Endotracheal tube 2.3 cm above the omid. In G tube in the body of the stomach. Lungs: Clear Pleura: No effusion. No pneumothorax. Cardiomediastinal contours: Unremarkable Bones: Unremarkable IMPRESSION: 1. Endotracheal tube 2.3 cm above the omid
[2024-08-24] MEDS ORDERED: PHENYTOIN SODIUM 50 MG/ML 2ML VIAL IV SCH (14:00)
[2024-08-24] MEDS: PHENYTOIN SODIUM 50 MG/ML 2ML VIAL IV SCH (14:04)
[2024-08-24] MEDS: ENALAPRILAT 1.25 MG/ML-1ML VIAL IV PRN (21:10)
--- NOTE | 2024-08-24 23:28 | DVHINCON2 ---
Date of service: Aug 24, 2024 Referring Physician COVERING ICU TEAM Reason for Consultation Acute hypoxic respiratory failure requiring mechanical ventilator History of Present Illness A 29-year-old woman with past medical history of seizures and intubation x3, who was brought in to ED on 08/20/24 due to seizures. According to patient's boyfriend who called the EMS, patient had a sudden onset of seizures after having 3 alcoholic beverages earlier in the day. At scene patient was noted to have a blood glucose level of 111. On arrival to the ED, patient was A&O x3. Within 20 minutes of arrival to the ER, patient started seizing again and underwent multiple seizures, A&O x1 along with postictal confusion was noted. Patient was subsequently sedated and intubated. CK, lactic acid an EEG was ordered for the patient. Neurology was also consulted and home medication Keppra 1000 mg IV b.i.d. was started. Patient was admitted for further care and pulmonary consultation is requested for evaluation and management of acute hypoxic respiratory failure requiring mechanical ventilator. Review of Systems: Unable to be obtained d/t intubated status Past Medical History: Seizures and hx of intubation x3. Past Surgical History: Unknown Medications: Reviewed. Allergies: No known drug allergies. Family History: Hypertension. Social History: Unknown Family History: Hypertension G8 FATHER Allergies: Coded Allergies: Penicillins (Verified Allergy, Mild, HIVES, 08/25/24) Home Meds Reported Medications Levetiracetam (Keppra) 500 Mg Tab, 1500 MG PO BID for 30 Days, MG 08/23/24 Lacosamide (Lacosamide) 100 Mg Tab, 100 MG PO BID, TAB 08/23/24 Gabapentin (Gabapentin) 100 Mg Cap, 100 MG PO TID 08/23/24 Metoprolol Tartrate (Metoprolol Tartrate) 50 Mg Tab, 50 MG PO DAILY, MG 08/23/24 Current Medications Current Medications Medications (Trade) Dose Ordered Sig/Nael Route PRN Reason Start Time Stop Time Status Last Admin Phenytoin Sodium 120 mg Q8HR IV 08/24/24 14:00 08/24/24 09:18 DC Phenytoin Sodium 100 mg Q8HR IV 08/24/24 14:00 08/24/24 22:09 Vital Signs Vital Signs Date Time Temp Pulse Resp B/P (MAP) Pulse Ox O2 Delivery O2 Flow Rate FiO2 08/24/24 23:00 100.2 85 20 145/88 (107) 100 212.4 08/24/24 22:17 30 08/24/24 22:00 Mechanical Ventilator+ Physical Exam Gen.: Patient lying in bed in medical ICU. Sedated, intubated on mechanical ventilator. Head: Normocephalic, atraumatic. Eyes: PERRLA. Ears: Normal external anatomy. Throat: Endotracheal tube and orogastric tube in place. Neck: Supple, trachea midline. Chest: Transmitted breath sounds bilaterally. Decreased air entry bilaterally. No wheezing. Bibasilar crackles. Cardiovascular: Positive S1, positive S2. Regular rate and rhythm. Abdomen: Positive bowel sounds in all 4 quadrants. Soft, nontender, n ondistended. : Jordan in place. Normal external genitalia. Rectal: Deferred. Skin: Warm, dry. Intact. Extremities: 2+ radial pulses bilaterally. No lower extremity edema. Neuro: Sedated. Labs/Diagnostic Data Labs Test 08/24/24 07:14 08/24/24 03:30 08/23/24 03:30 08/21/24 15:30 Range/Units Blood Gas Specimen Type Arterial Blood Gas Sample Site Right radial Blood Gas Patient Temperature 30.0 Arterial Blood Date Drawn Arterial Blood pH 7.435 7.350-7.450 Arterial Blood Partial Pressure CO2 30.2 L 32.0-45.0 mmHg Arterial Blood Partial Pressure O2 92.3 83.0-108.0 mmHg Arterial Blood HCO3 19.8 L 21.0-28.0 mmol/L Arterial Blood Oxygen Saturation 96.8 94.0-98.0 % Arterial Blood Base Excess -3.5 L -2.0-3.0 mmol/L Arterial Blood Oxyhemoglobin 96.4 94.0-98.0 % Arterial Blood Carboxyhemoglobin 0.3 L 0.5-1.5 % Arterial Blood Methemoglobin 0.1 0.0-1.5 % Charles Test Modified Blood Gas Total Hemoglobin 11.00 L 12.0-16.0 g/dL Blood Gas Set Respiration Rate 20.0 Blood Gas Modality Vent - ac FiO2 % 30.0 Blood Gas Tidal Volume 400.0 Blood Gas PEEP or CPAP 5.0 White Blood Count 5.1 4.4-10.8 10^3/uL Red Blood Count 3.75 L 4.0-5.20 10^6/uL Hemoglobin 10.4 L 12.2-16.2 g/dL Hematocrit 30.5 L 36.0-46.0 % Mean Corpuscular Volume 81.4 80.0-100.0 fL Mean Corpuscular Hemoglobin 27.8 L 28.0-32.0 pg Mean Corpuscular Hemoglobin Concent 34.2 32.0-36.0 g/dL Red Cell Distribution Width 14.8 H 11.8-14.3 % Platelet Count 238 140-450 10^3/uL Mean Platelet Volume 8.4 6.9-10.8 fL Neutrophils (%) (Auto) 55.9 37.0-80.0 % Lymphocytes (%) (Auto) 26.8 10.0-50.0 % Monocytes (%) (Auto) 8.4 0.0-12.0 % Eosinophils (%) (Auto) 8.0 H 0.0-7.0 % Basophils (%) (Auto) 0.9 0.0-2.0 % Neutrophils # (Auto) 2.9 1.6-8.6 10 ^3/uL Lymphocytes # (Auto) 1.4 0.4-5.4 10 ^3/uL Monocytes # (Auto) 0.4 0-1.3 10 ^3/uL Eosinophils # (Auto) 0.4 0-0.8 10 ^3/uL Basophils # (Auto) 0 0-0.2 10 ^3/uL Nucleated Red Blood Cells 0.0 % Sodium Level 140 136-145 mmol/L Potassium Level 3.4 L 3.5-5.1 mmol/L Chloride Level 107 98-107 mmol/L Carbon Dioxide Level 22 20-31 mmol/L Anion Gap 11 5-15 Blood Urea Nitrogen 6 L 9-23 mg/dL Creatinine 0.53 L 0.550-1.02 mg/dL Glomerular Filtration Rate Calc 128 >90 mL/min BUN/Creatinine Ratio 11.3 10.0-20.0 Serum Glucose 84 74-106 mg/dL Calcium Level 8.9 8.7-10.4 mg/dL Magnesium Level 1.8 1.6-2.6 mg/dL Total Bilirubin 0.3 0.2-1.0 mg/dL Aspartate Amino Transferase (AST) 23 13-40 U/L Alanine Aminotransferase (ALT) 40 7-40 U/L Alkaline Phosphatase 100 46-116 U/L Total Protein 5.7 5.7-8.2 g/dL Albumin 3.4 3.2-4.8 g/dL Phenytoin (Dilantin) Level 12.5 10-20 ug/mL Prolactin 17.10 2.8-29.2 ng/mL Test 08/21/24 13:50 08/20/24 11:12 08/20/24 10:43 08/20/24 08:30 Range/Units Lactic Acid Level 1.4 0.4-2.0 mmol/L Free Thyroxine (T4) Calculated 1.34 0.89-1.76 ng/dL Total Triiodothyronine (TT3) 1.15 0.60-1.81 ng/mL Vitamin D 25-Hydroxy 61.7 30.0-100 ng/mL Folic Acid 10.45 >5.38 ng/mL Hepatitis A IgM Antibody Negative Hepatitis B Surface Antigen Negative Negative Hepatitis B Core IgM Antibody Negative Negative Hepatitis C Antibody Negative Negative Influenza Type A Antigen Negative Negative Influenza Type B Antigen Positive Negative SARS-CoV-2 Antigen (Rapid) Negative NEGATIVE Test 08/20/24 07:56 08/20/24 06:05 08/20/24 05:28 08/20/24 04:41 Range/Units Prothrombin Time 13.7 H 9.3-11.8 sec Prothrombin Time INR 1.33 H 0.9-1.15 Activated Partial Thromboplast Time 27.2 24.5-34.5 SEC Direct Bilirubin < 0.1 <0.3 mg/dL Creatine Kinase 63 34-145 U/L Vitamin B12 Level 699 211-911 pg/mL Thyroid Stimulating Hormone (TSH) 0.45 L 0.55-4.78 uIU/mL Rapid Plasma Reagin Non reactive Non Reactive Ammonia 14 11-32 umol/L Blood Gas Critical Value Read Back yes Blood Gas Notified Whom ha rodrigues md Blood Gas Notified Time [id number] Blood Gas Notified By lesly carmichael Test 08/20/24 02:16 08/20/24 01:50 Range/Units Plasma/Serum Blood Alcohol 240.6 H <10 mg/dL Urine Color Colorless Yellow Urine Clarity Clear Clear Urine pH 6.0 5.0-9.0 Urine Specific [place] 1.002 1.001-1.035 Urine Protein Negative Negative Urine Ketones Negative Negative Urine Blood Negative Negative /uL Urine Nitrite Negative Negative Urine Bilirubin Negative Negative Urine Urobilinogen Normal Negative mg/dL Urine Leukocyte Esterase Negative Negative /uL Urine RBC <1 0 - 4 /hpf Urine Microscopic WBC < 1 0-5 /HPF Urine Squamous Epithelial Cells Few <5 /hpf Urine Bacteria Few H None Seen /hpf Urine Glucose Normal Normal mg/dL Urine Test Negative Negative Urine Opiates Screen Neg NEGATIVE Urine Fentanyl Screen Neg NEGATIVE Urine Barbiturates Screen Neg NEGATIVE Urine Phencyclidine Screen Neg NEGATIVE Urine Amphetamines Screen Neg NEGATIVE Urine Benzodiazepines Screen Neg NEGATIVE Urine Cocaine Screen Neg NEGATIVE Urine Cannabinoids Screen Neg NEGATIVE Microbiology Date/Time Source Procedure Growth Status 08/20/24 14:36 Nose MRSA Screen - Final Complete 08/20/24 07:56 Blood Blood Culture - Preliminary NO GROWTH AFTER 72 HOURS OF INCUBATION. Resulted 08/20/24 04:42 Voided Urine Urine Culture - Final Complete Assessment Impression: Acute hypoxic respiratory failure On mechanical ventilator Status epilepticus ETOH abuse. Plan: s/p intubation on mechanical ventilator. CXR image and report reviewed. Devices in place. No acute opacities, pneumothorax or pleural effusion. ABG reviewed, compensated. On AC mode; RR 20, VT 400, PEEP 5, FiO2 30% Titrate FIO2 to keep O2 saturation above 90%. VAP bundle. Daily ABG and CXR while intubated Sedate for ventilator synchrony -Propofol, Fentanyl Continue antibiotics. Antiepileptic medication Thiamine supplementation Start pressors if necessary to maintain a mean arterial blood pressure greater than 65 mmHg. Monitor for withdrawal. Monitor renal function Monitor electrolytes. Supplement as necessary. Monitor ins and outs. Maintain euvolemia. GI prophylaxis. DVT prophylaxis. D/w DEAN Rosales Prognosis: Poor given patient's multiple co-morbidities. Condition: Critical Rest of plan per hospitalist and other consultants. A total of 35 minutes of critical care time was spent reviewing the patient record, examining the patient, making a diagnostic and therapeutic plan, di scussing this plan with the medical personnel, following up on diagnostic studies and following the patient for clinical stability excluding any and all procedures. At least 50% of this time was spent in direct, [id number] contact. Thank you Dr. Saleh for allowing me to participate in this patient's care. Further recommendations will depend on the patient's clinical course. Please do not hesitate to contact me if you have any questions or concerns. This medical document was created using an electronic medical record system with [employer] computerized dictation system. Although these documentations are being carefully reviewed, there may still be some phonetic and typographical changes. The errors are purely typographical, due to imperfection on the software program, and do not reflect any compromise in the patient's medical care. Plan discussed with: Other (DEAN Rosales/MD Saleh) GRANT MANCUSO MD Aug 24, 2024 23:28
[2024-08-25] VITALS (86 sets, daily range): BP systolic 104–171; BP diastolic 44–92; PULSE 64–150; RESP 9–25; TEMP 98.6–101.1; O2SAT 91–100
[2024-08-25] MEDS ORDERED: hydrALAZINE HCL 20 MG/ML VL IV PRN (00:30)
[2024-08-25 03:44] LABS: Basophils # (auto) 0 10 ^3/uL (0-0.2); Basophils % (auto) 0.3 % (0.0-2.0); Eosinophils # (auto) 0.3 10 ^3/uL (0-0.8); Eosinophils % (auto) 3.1 % (0.0-7.0); Hematocrit 33.3 % (36.0-46.0); Hemoglobin 11.1 g/dL (12.2-16.2); Lymphocytes # (auto) 1.1 10 ^3/uL (0.4-5.4); Lymphocytes % (auto) 11.1 % (10.0-50.0); Mean Corpuscular Hemoglobin 27.1 pg (28.0-32.0); Mean Corpuscular Hgb Conc. 33.3 g/dL (32.0-36.0); Mean Corpuscular Volume 81.2 fL (80.0-100.0); Monocytes # (auto) 0.6 10 ^3/uL (0-1.3); Monocytes % (auto) 6.4 % (0.0-12.0); Neutrophils % (auto) 79.1 % (37.0-80.0); Nucleated Red Blood Cells % 0.1 %; Platelet Count (auto) 282 10^3/uL (140-450); Red Cell Distribution Width 14.4 % (11.8-14.3); White Blood Cell 10.1 10^3/uL (4.4-10.8)
[2024-08-25 04:04] LABS: Alanine Aminotransferase 35 U/L (7-40); Albumin 3.7 g/dL (3.2-4.8); Alkaline Phosphatase 104 U/L (46-116); Anion Gap 13 (5-15); Aspartate Aminotransferase 23 U/L (13-40); BUN/Creatinine Ratio 12.2 (10.0-20.0); Calcium 9.2 mg/dL (8.7-10.4); Carbon Dioxide 20 mmol/L (20-31); Chloride 105 mmol/L (98-107); Glucose 89 mg/dL (74-106); Magnesium 1.8 mg/dL (1.6-2.6); Sodium 138 mmol/L (136-145); Total Protein 6.3 g/dL (5.7-8.2)
[2024-08-25 04:18] LABS: Bilirubin, Total 0.2 mg/dL (0.2-1.0); Blood Urea Nitrogen 6 mg/dL (9-23); Potassium 3.4 mmol/L (3.5-5.1)
[2024-08-25] MEDS: POTASSIUM CHL 20MEQ/100ML 100 ML IV ONE (05:53)
--- NOTE | 2024-08-25 06:59 | DVH ---
EXAM: XY CHEST PORTABLE HISTORY: INTUBATED COMPARISON: XY CHEST PORTABLE on DOS: 08/24/24, XY CHEST XRAY 1 VIEW on DOS: 08/24/24, XY CHEST XRAY 1 EW on DOS: 08/23/24, XY CHEST XRAY 1 VIEW on DOS: 08/22/24, XY CHEST XRAY 1 VIEW on DOS: 08/21/24 TECHNIQUE: Portable AP view of the chest was performed. FINDINGS: Endotracheal tube is re-identified with its tip about 11 mm proximal to the omid. OG tube is re-casey ntified. There is blunting of the left costophrenic angle. No pneumothorax or consolidative infiltrat es. There is central interstitial prominence. The heart is not enlarged. Surgical clips in the righ t upper quadrant are consistent with prior cholecystectomy. IMPRESSION: 1. Mechanical ventilation with endotracheal tube tip about 11 mm above the omid. Recommend pulling back 1-2 cm then repeating chest x-ray. 2. Reactive airways disease and small left pleural effusion.
[2024-08-25 07:47] LABS: Base Excess -6.6 mmol/L (-2.0-3.0)
[2024-08-25] MEDS ORDERED: MORPHINE SULFATE INJ 2 MG/ml SYRG IV PRN (10:00)
[2024-08-25] MEDS ORDERED: HYDROcodone-ACET 10/325MG TAB PO PRN (10:00)
--- NOTE | 2024-08-25 10:00 | DVHPN2 ---
Subjective update 08/25 08/24 patient was given, than load of Dilantin yesterday. We will try weaning trial. We will hold off on making any changes to antiseizure antiepileptics today. Defer to Neurology. Patient appears euvolemic, on several sedatives and vent to manage by RT. Enteral feeds via G-tube. Vitals stable. On exam patient has fixed pupils both this was on sedatives. Cough and gag present. We will try weaning trial today, otherwise no significant changes today. 08/25 - extubated, AOx3, orophyngeal pain due to ett ng tube. will need 12-24hr monitor for recurrent seizures. keep meds iv pending neuro review tomorrow Reviewed: H&P Changes from previous H/P or p: No Changes General: Per HPI Objective Vitals Vital Signs Date Time Temp Pulse Resp B/P (MAP) Pulse Ox O2 Delivery O2 Flow Rate FiO2 08/25/24 08:10 14 08/25/24 08:10 99 10.0 08/25/24 06:52 100.6 08/25/24 06:45 92 140/76 (97) 08/25/24 06:30 30 08/25/24 06:00 Mechanical Ventilator+ Intake/Output Intake and Output 08/25/24 07:00 Intake Total 1728.920 ml Output Total 3150 ml Balance -1421.080 ml Intake Oral 210 ml IV Total 1498.920 ml Tube Feeding 20 ml Output Urine Total 3150 ml Exam Patient appears euvolemic, on several sedatives and vent to manage by RT. Enteral feeds via G-tube. Vitals stable. On exam patient has fixed pupils both this was on sedatives. Cough and gag present. Medications Current Medications Medications Dose Ordered Sig/Nael Route Start Time Stop Time Status Last Admin Dose Admin Propofol 100 ml @ 2.592 mls/ hr Q24H IV 08/20/24 03:00 08/24/24 14:05 12.96 MLS/HR Midazolam HCl 50 ml @ 1 mls/hr Q24H IV 08/20/24 03:30 08/24/24 16:23 14 MLS/HR Pantoprazole Sodium 40 mg DAILY IV 08/20/24 10:00 08/25/24 09:00 40 MG Fentanyl Citrate 250 ml @ 2.5 mls/hr Q24H IV 08/20/24 06:00 08/21/24 08:45 2.5 MLS/HR Lorazepam 1 mg Q5MINP PRN IV 08/20/24 10:00 08/22/24 17:51 1 MG Enoxaparin Sodium 40 mg DAILY SC 08/21/24 10:00 08/25/24 09:01 40 MG Thiamine HCl 100 mg DAILY IV 08/21/24 10:00 08/25/24 09:01 100 MG Enteral Nutritional Formula 1,000 ml 30ML/HR GT 08/20/24 12:15 Piperacillin Sod/ Tazobactam Sod 100 ml @ 25 mls/hr Q6HR IV 08/20/24 18:00 08/25/24 05:27 25 MLS/HR Docusate Sodium 100 mg BID GT 08/20/24 22:00 08/24/24 22:09 100 MG Acetaminophen 650 mg Q6HP PRN PO 08/20/24 16:15 08/25/24 05:52 650 MG Dexmedetomidine HCl 400 mcg/ Dextrose 100 ml @ 3.89 mls/hr Q24H IV 08/20/24 19:45 Enalaprilat 0.625 mg Q6HP PRN IV 08/20/24 21:30 08/24/24 21:10 0.625 MG Levetiracetam 100 ml @ 400 mls/hr BID IV 08/21/24 10:00 08/25/24 09:00 400 MLS/HR Phenytoin Sodium 100 mg Q8HR IV 08/24/24 14:00 08/25/24 05:27 100 MG Hydralazine HCl 10 mg Q6HP PRN IV 08/25/24 00:30 Laboratory Results Laboratory Tests 08/25/24 03:10 Chemistry Test 08/25/24 03:10 Albumin 3.7 g/dL (3.2-4.8) Calcium Level 9.2 mg/dL (8.7-10.4) Magnesium Level 1.8 mg/dL (1.6-2.6) Total Protein 6.3 g/dL (5.7-8.2) LFT Test 08/25/24 03:10 Alanine Aminotransferase (ALT) 35 U/L (7-40) Alkaline Phosphatase 104 U/L (46-116) Aspartate Amino Transferase (AST) 23 U/L (13-40) Total Bilirubin 0.2 mg/dL (0.2-1.0) Urinalysis Test 08/20/24 01:50 Urine Color Colorless (Yellow) Urine Clarity Clear (Clear) Urine pH 6.0 (5.0-9.0) Urine Specific [place] 1.002 (1.001-1.035) Urine Protein Negative (Negative) Urine Ketones Negative (Negative) Urine Blood Negative /uL (Negative) Urine Nitrite Negative (Negative) Urine Bilirubin Negative (Negative) Urine Urobilinogen Normal mg/dL (Negative) Urine Leukocyte Esterase Negative /uL (Negative) Urine RBC <1 /hpf (0 - 4) Urine Microscopic WBC < 1 /HPF (0-5) Urine Squamous Epithelial Cells Few /hpf (<5) Urine Bacteria Few /hpf (None Seen) H Urine Glucose Normal mg/dL (Normal) Urine Test Negative (Negative) Blood Gas Results Test 08/25/24 07:40 Arterial Blood pH 7.392 (7.350-7.450) FiO2 % 30.0 Microbiology Microbiology Date/Time Source Procedure Growth Status 08/20/24 14:36 Nose MRSA Screen - Final Complete 08/20/24 07:56 Blood Blood Culture - Final NO GROWTH AFTER 5 DAYS OF INCUBATION. Complete 08/20/24 04:42 Voided Urine Urine Culture - Final Complete Labs and/or images reviewed: Labs reviewed by me, Image(s) reviewed by me Assessment/Plan Assessment/Plan 08/25 - extubated, AOx3, orophyngeal pain due to ett ng tube. will need 12-24hr monitor for recurrent seizures. keep meds iv pending neuro review tomorrow NEUROLOGY # Acute metabolic or toxic encephalopathy # Grand mal seizures # Status epilepticus - CT showed no acute intracranial abnormalities - currently on midazolam drip - currently intubated and sedated with Versed and Diprivan, fentanyl 08/20 - neurology on board, advised to continue current management - currently on Keppra 1500 mg bid - ordered Ativan p.r.n. for seizures - precautions seizures - Thiamine 100 mg IV q.d. and Folic acid 1 mg IV q.d. - Neurologist recommended phenytoin 1000mg once then 100mg tid for ongoing seizures. 08/23 given another bolus of 500. - extubated 08/25/24. keep meds iv pending neuro review tomorrow CARDIOLOGY RESPIRATORY # Acute hypoxic respiratory failure # possible aspiration pneumonia # influenza type B # SIRS vs Sepsis - ICU status - currently intubated and sedated with propofol, Versed and Diprivan, fentanyl 08/20 - RR 20, VTE 400, FiO2 30%, peep 5 - rapid test positive for type B influenza - Currently on Zosyn for now - ordered pancultures - monitoring labs - Tamiflu to finish 08/24 GI/LIVER # obesity grade 1 - monitor /KIDNEY/METABOLIC # Mixed Respiratory and metabolic acidosis likely due to above - monitoring with the ABG - monitor renal function and electrolyte imbalance, replace as needed ENDO MSK HEME ID # possible aspiration pneumonia # influenza type B # SIRS vs Sepsis - rapid test positive for type B influenza - Currently on Zosyn for now - ordered pancultures - monitoring labs - tamiflu SKIN LINES Itubation 08/20 Right femoral vein catheter 08/20 Jordan catheter 08/20 DRIPS Versed, Propofol Diprivan Fetanyl Off from Levophed 08/20 NUTRITION Jevity 30ml/hr PUD prophylaxis: Pantoprazole DVT prophylaxis: Lovenox Goals of care has been discussed with the family for more than 27 minutes, full code status Critical care time including chart review, discussing with the patient's family excluding procedures: 54 minutes Plan discussed with: Patient My Orders Orders - ALINA MUIR MD Procedure Category Date Status Time Chest Portable XY 08/24/24 Resulted 12:35 Chest Portable XY 08/25/24 Resulted 04:00 Cpap Trial For Am ORDERS 08/25/24 Transmitted 08:00 Date of Service: Aug 25, 2024 Billing Provider: ALINA MUIR MD Common Visit Codes: [id number] CARE 30-74 MIN ALINA MUIR MD Aug 25, 2024 10:00
[2024-08-25] MEDS: ONDANSETRON HCL 4 MG/2 ML VIAL ONE (10:28)
[2024-08-25] MEDS: ONDANSETRON HCL 4 MG/2 ML VIAL IV PRN (10:28)
[2024-08-25] MEDS: LIDOCAINE VISCOUS 2% 15ML UD PO ONE (16:38)
[2024-08-25] MEDS: LORazepam 2MG/ML-1ML VIAL IV PRN (17:47)
[2024-08-25] MEDS: SODIUM CHLORIDE 0.9% 1,000 ML IV ONE (20:00)
--- NOTE | 2024-08-25 22:25 | DVHPN2 ---
Progress Note - Dictate Date Seen: Aug 25, 2024 Medical Necessity Reason Pt with a Central, PICC or Fol: Yes The following are medically ne: Central Line, Jordan Catheter Subjective Patient seen and examined at bedside. S/p extubation, currently on supplemental oxygen Overnight events reviewed. vital signs Vital Sign Date Time Temp Pulse Resp B/P (MAP) Pulse Ox O2 Delivery O2 Flow Rate FiO2 08/25/24 20:00 14 98 Nasal Cannula* 09 2008/25/24 20:00 127 08/25/24 19:17 100.4 08/25/24 19:00 140/86 (104) Total Intake and Output 08/24/24 08/24/24 08/25/24 15:00 23:00 07:00 Intake Total 734.864 ml 537.152 ml 481.904 ml Output Total 1900 ml 1250 ml Balance 734.864 ml -1362.848 ml -768.096 ml medications Current Medications Medications Dose Ordered Sig/Nael Route Start Time Stop Time Status Last Admin Dose Admin Propofol 100 ml @ 2.592 mls/ hr Q24H IV 08/20/24 03:00 08/24/24 14:05 12.96 MLS/HR Midazolam HCl 50 ml @ 1 mls/hr Q24H IV 08/20/24 03:30 08/24/24 16:23 14 MLS/HR Pantoprazole Sodium 40 mg DAILY IV 08/20/24 10:00 08/25/24 09:00 40 MG Fentanyl Citrate 250 ml @ 2.5 mls/hr Q24H IV 08/20/24 06:00 08/21/24 08:45 2.5 MLS/HR Lorazepam 1 mg Q5MINP PRN IV 08/20/24 10:00 08/25/24 13:19 1 MG Enoxaparin Sodium 40 mg DAILY SC 08/21/24 10:00 08/25/24 09:01 40 MG Thiamine HCl 100 mg DAILY IV 08/21/24 10:00 08/25/24 09:01 100 MG Enteral Nutritional Formula 1,000 ml 30ML/HR GT 08/20/24 12:15 Piperacillin Sod/ Tazobactam Sod 100 ml @ 25 mls/hr Q6HR IV 08/20/24 18:00 08/25/24 18:03 25 MLS/HR Docusate Sodium 100 mg BID GT 08/20/24 22:00 08/24/24 22:09 100 MG Acetaminophen 650 mg Q6HP PRN PO 08/20/24 16:15 08/25/24 18:17 650 MG Dexmedetomidine HCl 400 mcg/ Dextrose 100 ml @ 3.89 mls/hr Q24H IV 08/20/24 19:45 Enalaprilat 0.625 mg Q6HP PRN IV 08/20/24 21:30 08/24/24 21:10 0.625 MG Levetiracetam 100 ml @ 400 mls/hr BID IV 08/21/24 10:00 08/25/24 09:00 400 MLS/HR Phenytoin Sodium 100 mg Q8HR IV 08/24/24 14:00 08/25/24 14:21 100 MG Hydralazine HCl 10 mg Q6HP PRN IV 08/25/24 00:30 Ondansetron HCl 4 mg Q6HPRN PRN IV 08/25/24 10:00 08/25/24 10:28 4 MG Morphine Sulfate 2 mg Q4HPRN PRN IV 08/25/24 10:00 Acetaminophen/ Hydrocodone Bitart 1 tab Q4HP PRN PO 08/25/24 10:00 Lorazepam 1 mg Q4HP PRN IV 08/25/24 10:00 08/25/24 17:47 1 MG objective Gen.: Patient lying in bed in no apparent distress. On supplemental oxygen. Head: Normocephalic, atraumatic. Eyes: EOMI/PERRLA. Ears: Normal hearing. Normal anatomy. Neck/trachea: Trachea midline, supple. Nose: Normal external anatomy. Mouth: Moist mucous membranes. Chest: Decreased air entry bilaterally. No wheezing or rhonchi. Cardiovascular: Positive S1, positive S2. Regular rate and rhythm. Abdomen: Positive bowel sounds in all 4 quadrants. Soft, non-tender, non- distended. : Deferred. Rectal: Deferred. Skin: Warm, dry. Intact. Extremities: 2+ radial pulses bilaterally. No lower extremity edema. Neuro: Awake, alert, oriented x3. No gross motor or sensory deficits. Cranial nerves II through XII intact. Gait not assessed. laboratory and microbiology Laboratory Tests 08/25/24 03:10 Test 08/25/24 03:10 Range/Units Serum Glucose 89 74-106 mg/dL Assessment/Plan Impression: Acute hypoxic respiratory failure On mechanical ventilator Status epilepticus ETOH abuse. Events: S/p extubation today Patient tolerated CPAP and was extubated uneventfully Currently on supplemental oxygen, 2 LPM NC Taper O2 as tolerated Patient tachycardic - start NS at 100 ml/hr for 1 kg Continue antibiotics Antiepileptics Neurology recs appreciated. Labs and imaging reviewed. Rest of plan as noted below. Plan: S/p extubation today Supplemental oxygen Titrate to keep O2 sats above 90% Off sedation Continue antibiotics. Antiepileptic medication Thiamine supplementation Start pressors if necessary to maintain a mean arterial blood pressure greater than 65 mmHg. Monitor for withdrawal. Monitor renal function Monitor electrolytes. Supplement as necessary. Monitor ins and outs. Maintain euvolemia. GI prophylaxis. DVT prophylaxis. Prognosis: Poor given patient's multiple co-morbidities. Condition: Critical Rest of plan per hospitalist and other consultants. A total of 35 minutes of critical care time was spent reviewing the patient record, examining the patient, making a diagnostic and therapeutic plan, discussing this plan with the medical personnel, following up on diagnostic studies and following the patient for clinical stability excluding any and all procedures. At least 50% of this time was spent in direct, [id number] contact. Thank you Dr. Saleh for allowing me to participate in this patient's care. Further recommendations will depend on the patient's clinical course. Please do not hesitate to contact me if you have any questions or concerns. This medical document was created using an electronic medical record system with [employer] dictation system. Although these documentations are being carefully reviewed, there may still be some phonetic and typographical changes. The errors are purely typographical, due to imperfection on the software program, and do not reflect any compromise in the patient's medical care. Dietary Evaluation Review Comments: 1. Consider increasing Jevity 1.2 to 45ml/hr to provide 1296 Kcal 60g Protein 872ml Free Water regime to meet nutritional needs 2. Consider advance to hepatic diet when medically appropriate Expected Outcomes/Goals: 1. Pt will meet >75% of nutritional needs within 2-3 days Plan discussed with: Other (DEAN Rosales) Critical Care Time(min): 35 GRANT MANCUOS MD Aug 25, 2024 22:25
[2024-08-26] VITALS (17 sets, daily range): BP systolic 119–155; BP diastolic 62–97; PULSE 92–115; RESP 11–21; TEMP 98.1–100.1; O2SAT 92–99
[2024-08-26 08:26] LABS: Basophils # (auto) 0.1 10 ^3/uL (0-0.2); Eosinophils # (auto) 0.1 10 ^3/uL (0-0.8); Eosinophils % (auto) 1.9 % (0.0-7.0); Hematocrit 34.6 % (36.0-46.0); Hemoglobin 11.8 g/dL (12.2-16.2); Lymphocytes # (auto) 1.2 10 ^3/uL (0.4-5.4); Lymphocytes % (auto) 18.3 % (10.0-50.0); Mean Corpuscular Hemoglobin 27.5 pg (28.0-32.0); Mean Corpuscular Volume 80.9 fL (80.0-100.0); Monocytes # (auto) 0.6 10 ^3/uL (0-1.3); Monocytes % (auto) 8.9 % (0.0-12.0); Neutrophils # (auto) 4.6 10 ^3/uL (1.6-8.6); Neutrophils % (auto) 69.9 % (37.0-80.0); Platelet Count (auto) 293 10^3/uL (140-450); Red Blood Cells 4.28 10^6/uL (4.0-5.20); Red Cell Distribution Width 15.3 % (11.8-14.3); White Blood Cell 6.6 10^3/uL (4.4-10.8)
[2024-08-26 08:40] LABS: Alanine Aminotransferase 34 U/L (7-40); Albumin 4.3 g/dL (3.2-4.8); Alkaline Phosphatase 95 U/L (46-116); Anion Gap 13 (5-15); Aspartate Aminotransferase 25 U/L (13-40); Blood Urea Nitrogen 6 mg/dL (9-23); Calcium 9.1 mg/dL (8.7-10.4); Carbon Dioxide 18 mmol/L (20-31); Chloride 108 mmol/L (98-107); Glucose 97 mg/dL (74-106); Magnesium 1.9 mg/dL (1.6-2.6); Potassium 3.4 mmol/L (3.5-5.1); Sodium 139 mmol/L (136-145)
[2024-08-26 08:41] LABS: Bilirubin, Total 0.3 mg/dL (0.2-1.0)
--- NOTE | 2024-08-26 09:08 | DVH ---
EXAM: XY CHEST XRAY 1 VIEW Indication: pain Technique: Single frontal view of the chest was obtained Comparison: XY CHEST PORTABLE on DOS: 08/25/24, XY CHEST PORTABLE on DOS: 08/24/24, XY CHEST XRAY 1 VIEW on DOS: 08/24/24, XY CHEST XRAY 1 VIEW on DOS: 08/23/24, XY CHEST XRAY 1 VIEW on DOS: 08/22/24 FINDINGS: Lines and Tubes: None Lungs: No focal consolidation. Pleura: No effusion. No pneumothorax. Cardiomediastinal contours: Unremarkable Bones: No acute osseous abnormality. IMPRESSION: No acute cardiopulmonary disease.
--- NOTE | 2024-08-26 13:02 | DVHPN2 ---
Progress Note - Dictate Date Seen: Aug 26, 2024 Medical Necessity Reason Pt with a Central, PICC or Fol: Yes The following are medically ne: Central Line, Jordan Catheter Subjective Ms. Light is a 29 years old female with a history of obesity, seizure disorder, the patient was brought to the [facility] on 08/20/2024 with a chief company of seizure activity. I have seen and examined the patient in the ICU, I have discussed with her nurse. At that time, she was alert, fully oriented, with her permission, I have interviewed her mother and ex- who were in the unit She tells me that she has no history of depression or anxiety, she vapes, drinks alcohol 2-3 times monthly, 4-6 drinks each time She was one seizure in 2023 after one alcohol, and she was put on Keppra 500 mg b.i.d. by her primary care physician, she was supposed to see a neurologist on 08/20/2024 We have discussed about seizure and alcohol drink She has been advised not drive on she was cleared DMV report in chart Hepatitis panel, 08/20/2024: Negative Dilantin, 08/22/2024: 10.6, 08/23/2024: 12.5 UDS, 08/20/2024: Negative Plasma alcohol, 08/20/2024: 240.6 Urinalysis, 08/20/2024: Unremarkable ABG, 08/20/2024: Respiratory acidosis, metabolic acidosis CBC, 08/20/2024: Unremarkable PT/INR/CBC, 08/21/2024: 313.7/1.33/27.2 CMP, 08/20/2024: Unremarkable Albumin, 08/23/2024: 3.7 Vitamin B12, 08/20/2024: 699 TSH, 08/20/2024: 0.45 EEG, 08/20/2024: Diffuse Beta activity CT head, 05/20/2025: No acute intracranial abnormality. vital signs Vital Sign Date Time Temp Pulse Resp B/P (MAP) Pulse Ox O2 Delivery O2 Flow Rate FiO2 08/26/24 12:17 16 96 Room Air* 0 21 08/26/24 12:17 106 08/26/24 06:00 126/70 (88) 08/26/24 05:00 100.0 100.0 Total Intake and Output 08/25/24 08/25/24 08/26/24 15:00 23:00 07:00 Intake Total 225 ml 600 ml 925 ml Output Total 1400 ml 750 ml Balance 225 ml -800 ml 175 ml medications Current Medications Medications Dose Ordered Sig/Nael Route Start Time Stop Time Status Last Admin Dose Admin Pantoprazole Sodium 40 mg DAILY IV 08/20/24 10:00 08/26/24 10:15 40 MG Lorazepam 1 mg Q5MINP PRN IV 08/20/24 10:00 08/25/24 13:19 1 MG Enoxaparin Sodium 40 mg DAILY SC 08/21/24 10:00 08/26/24 10:15 40 MG Thiamine HCl 100 mg DAILY IV 08/21/24 10:00 08/26/24 10:15 100 MG Enteral Nutritional Formula 1,000 ml 30ML/HR GT 08/20/24 12:15 Piperacillin Sod/ Tazobactam Sod 100 ml @ 25 mls/hr Q6HR IV 08/20/24 18:00 08/26/24 05:47 25 MLS/HR Docusate Sodium 100 mg BID GT 08/20/24 22:00 08/26/24 10:14 100 MG Acetaminophen 650 mg Q6HP PRN PO 08/20/24 16:15 08/26/24 01:15 650 MG Enalaprilat 0.625 mg Q6HP PRN IV 08/20/24 21:30 08/24/24 21:10 0.625 MG Levetiracetam 100 ml @ 400 mls/hr BID IV 08/21/24 10:00 08/26/24 10:14 400 MLS/HR Phenytoin Sodium 100 mg Q8HR IV 08/24/24 14:00 08/26/24 05:47 100 MG Ondansetron HCl 4 mg Q6HPRN PRN IV 08/25/24 10:00 08/25/24 10:28 4 MG Lorazepam 1 mg Q4HP PRN IV 08/25/24 10:00 08/25/24 23:20 1 MG objective The patient is well-nourished and well-developed with no distress. The patient is intubated MENTAL STATUS: Responds to painful stimuli CRANIAL NERVES: Pupils are equal, round and reactive.There are corneal reflexes and doll's eyes phenomenon. No signs of facial weakness. There are gagging or coughing reflexes SENSATION: Responses to pain stimuli. MOTOR: Normal tone in the upper and lower extremity. Normal muscle bulk. No fasciculations. No spontaneous movement. REFLEXES: Deep tendon reflexes are symmetrical. No pathological reflexes. CEREBELLAR/COORDINATION: Deferred GAIT/STATION: deferred laboratory and microbiology Laboratory Tests 08/26/24 08:06 Test 08/26/24 08:06 Range/Units Serum Glucose 97 74-106 mg/dL Problem List Coma Status epilepticus Toxic encephalopathy Metabolic encephalopathy Seizure disorder, history unobtainable ? Alcoholism Assessment/Plan Monitoring Supportive treatment MR head later (will order) Dilantin level in the morning ICU care Stabilize vitals Respiratory support/vent management Thiamine 100 mg IV q.d. Folic acid 1 mg IV q.d. Ativan for seizure breakthrough Keppra 1500 mg b.i.d. for now Dilantin 100 mg IV Q 8 hours for now Extra Dilantin, 500 mg IV today Seizure precautions DT precautions DVT prophylaxis More recommendation per clinical course This medical document was created using an electronic medical record system with [employer] dictation system. Although this document has been carefully reviewed, there may still be some phonetic and typographical errors. These areas are purely typographical due to imperfections of the software programs, and do not reflect any compromise in the patient's medical care. Prognosis poor Dietary Evaluation Review Comments: 1. Consider increasing Jevity 1.2 to 45ml/hr to provide 1296 Kcal 60g Protein 872ml Free Water regime to meet nutritional needs 2. Consider advance to hepatic diet when medically appropriate Expected Outcomes/Goals: 1. Pt will meet >75% of nutritional needs within 2-3 days Plan discussed with: Patient, Spouse, Other Critical Care Time(min): 40 RODRIGO SEPULVEDA MD Aug 26, 2024 13:02
--- NOTE | 2024-08-26 18:29 | DVHPNRES ---
Progress Note Date Seen: Aug 26, 2024 Resident Creating Document: RICH CRAMER RESIDENT Medical Necessity Reason Pt with a Central, PICC or Fol: No The following are medically ne: Central Line Subjective Review of Systems Ms. Light is a 29 years old female with a PMH of seizures, obesity presented to the ED with the chief complaints of seizures. Patient seen and examined at the bedside. patient extubated on 08/25. Patient reported improvement in her symptoms since admission, reported no new complaints. Downgraded to tele. DC likely tomorrow. Patient reports: No new complaints, Feels better Objective vital signs Vital Sign Date Time Temp Pulse Resp B/P (MAP) Pulse Ox O2 Delivery O2 Flow Rate FiO2 08/26/24 17:00 98.1 100 19 155/97 (116) 97 98.1 08/26/24 12:17 Room Air* 0 21 Total Intake and Output 08/25/24 08/25/24 08/26/24 15:00 23:00 07:00 Intake Total 225 ml 600 ml 925 ml Output Total 1400 ml 750 ml Balance 225 ml -800 ml 175 ml medications Current Medications Medications Dose Ordered Sig/Nael Route Start Time Stop Time Status Last Admin Dose Admin Pantoprazole Sodium 40 mg DAILY IV 08/20/24 10:00 08/26/24 10:15 40 MG Lorazepam 1 mg Q5MINP PRN IV 08/20/24 10:00 08/25/24 13:19 1 MG Enoxaparin Sodium 40 mg DAILY SC 08/21/24 10:00 08/26/24 10:15 40 MG Thiamine HCl 100 mg DAILY IV 08/21/24 10:00 08/26/24 10:15 100 MG Enteral Nutritional Formula 1,000 ml 30ML/HR GT 08/20/24 12:15 Piperacillin Sod/ Tazobactam Sod 100 ml @ 25 mls/hr Q6HR IV 08/20/24 18:00 08/26/24 13:53 25 MLS/HR Docusate Sodium 100 mg BID GT 08/20/24 22:00 08/26/24 10:14 100 MG Acetaminophen 650 mg Q6HP PRN PO 08/20/24 16:15 08/26/24 01:15 650 MG Enalaprilat 0.625 mg Q6HP PRN IV 08/20/24 21:30 08/24/24 21:10 0.625 MG Levetiracetam 100 ml @ 400 mls/hr BID IV 08/21/24 10:00 08/26/24 10:14 400 MLS/HR Phenytoin Sodium 100 mg Q8HR IV 08/24/24 14:00 08/26/24 13:53 100 MG Ondansetron HCl 4 mg Q6HPRN PRN IV 08/25/24 10:00 08/25/24 10:28 4 MG Lorazepam 1 mg Q4HP PRN IV 08/25/24 10:00 08/25/24 23:20 1 MG Examination Pt is lying on bed General Appearance: Alert, Oriented X3, Cooperative, Not in acute distress HEENT: Atraumatic, Mucous membranes moist/pink Respiratory: Clear to auscultation, Normal air movement, No added sounds Cardiovascular: Regular rate, Normal S1, Normal S2, No murmurs Abdominal: Active bowel sounds, Soft, no distention, no tenderness Extremities: No edema, Normal pulses, No tenderness/swelling Skin: No Significant rash, except past surgical scars Neuro: Normal speech, sensorimotor deficits none Psych/Mental Status: Mental status NL, Mood NL Nurse was there as sharperone during examination laboratory and microbiology Laboratory Tests 08/26/24 08:06 Test 08/26/24 08:06 Range/Units Serum Glucose 97 74-106 mg/dL Microbiology Date/Time Source Procedure Growth Status 08/25/24 07:30 Blood Blood Culture - Preliminary NO GROWTH AFTER 24 HOURS OF INCUBATION. Resulted 08/25/24 07:21 Urine - [place] Urine Culture - Preliminary Resulted 08/20/24 14:36 Nose MRSA Screen - Final Complete Labs and/or images reviewed: Labs reviewed by me, Image(s) reviewed by me Problem List/Assessment/Plan Problem List/Assessment/Plan # Acute metabolic or toxic encephalopathy- resolved # Grand mal seizures # Status epilepticus - CT showed no acute intracranial abnormalities - neurology on board, advised to continue current management - EEG - currently on Keppra 1500 mg bid - ordered Ativan p.r.n. for seizures - precautions seizures - Thiamine 100 mg IV q.d. and Folic acid 1 mg IV q.d. - Neurologist recommended phenytoin 100mg tid for ongoing seizures. CARDIOLOGY RESPIRATORY # Acute hypoxic respiratory failure- resolving # possible aspiration pneumonia # influenza type B # SIRS vs Sepsis - rapid test positive for type B influenza - Currently on Zosyn for now - ordered pancultures, no growth - monitoring labs - Tamiflu GI/LIVER # obesity grade 1 - counseled regarding lifestyle modifications /KIDNEY/METABOLIC # Mixed Respiratory and metabolic acidosis likely due to above- corrected now - monitoring with the ABG - monitor renal function and electrolyte imbalance, replace as needed ENDO MSK HEME ID # possible aspiration pneumonia- resolving # influenza type B- resolving # SIRS vs Sepsis- resolving - rapid test positive for type B influenza - Currently on Zosyn for now - ordered pancultures - monitoring labs - tamiflu # alcohol abuse disorder # acute alcohol intoxication -counseled regarding cessation for more than 17 minutes SKIN LINES Itubation 08/20, extubated on 08/25 Right femoral vein catheter 08/20, DC 2/ Jordan catheter 08/20, DC 08/26 DRIPS NUTRITION Regular diet PUD prophylaxis: Pantoprazole DVT prophylaxis: Lovenox Goals of care has been discussed with the family for more than 27 minutes, full code status Case discussed with Dr. Che Plan discussed with: Patient, Spouse My Orders My Orders Orders - RICH CRAMER RESIDENT Procedure Category Date Status Time Chest Xray 1 View XY 08/26/24 Resulted 07:30 Abg W/ Co-Ox RT 08/26/24 Logged 07:30 Pt Request For Service PT 08/26/24 Logged 08:51 D/C Tlc BERTA 08/26/24 In Process 17:12 Basic Metabolic Panel LAB 08/27/24 Verified 04:00 Complete Blood Count LAB 08/27/24 Verified 04:00 Dietary Evaluation Review Comments: 1. Consider increasing Jevity 1.2 to 45ml/hr to provide 1296 Kcal 60g Protein 872ml Free Water regime to meet nutritional needs 2. Consider advance to hepatic diet when medically appropriate Expected Outcomes/Goals: 1. Pt will meet >75% of nutritional needs within 2-3 days Date of Service: Aug 26, 2024 Billing Provider: ANDRES CHE MD Common Visit Codes: [id number] INP/OBS CARE(HIGH) Secondary Visit Codes: [id number] CARE PLAN 30 MINUTES RICH CRAMER Aug 26, 2024 18:28 ANDRES CHE MD Aug 27, 2024 16:06
[2024-08-27] VITALS (9 sets, daily range): BP systolic 113–147; BP diastolic 59–96; PULSE 80–114; RESP 16–20; TEMP 97.7–98.9; O2SAT 96–98
[2024-08-27 06:02] LABS: Sodium 141 mmol/L (136-145)
[2024-08-27 06:03] LABS: Anion Gap 11 (5-15); Calcium 9.4 mg/dL (8.7-10.4); Carbon Dioxide 23 mmol/L (20-31)
[2024-08-27 06:08] LABS: BUN/Creatinine Ratio 19.1 (10.0-20.0)
[2024-08-27 06:12] LABS: Basophils # (auto) 0.1 10 ^3/uL (0-0.2); Basophils % (auto) 1.3 % (0.0-2.0); Eosinophils # (auto) 0.2 10 ^3/uL (0-0.8); Eosinophils % (auto) 2.6 % (0.0-7.0); Hematocrit 35.8 % (36.0-46.0); Hemoglobin 12.2 g/dL (12.2-16.2); Lymphocytes # (auto) 1.8 10 ^3/uL (0.4-5.4); Lymphocytes % (auto) 25.2 % (10.0-50.0); Mean Corpuscular Hemoglobin 27.4 pg (28.0-32.0); Mean Corpuscular Hgb Conc. 34.1 g/dL (32.0-36.0); Mean Corpuscular Volume 80.2 fL (80.0-100.0); Monocytes # (auto) 0.8 10 ^3/uL (0-1.3); Monocytes % (auto) 11.1 % (0.0-12.0); Neutrophils # (auto) 4.3 10 ^3/uL (1.6-8.6); Neutrophils % (auto) 59.8 % (37.0-80.0); Platelet Count (auto) 309 10^3/uL (140-450); Red Blood Cells 4.46 10^6/uL (4.0-5.20); Red Cell Distribution Width 14.8 % (11.8-14.3); White Blood Cell 7.2 10^3/uL (4.4-10.8)
[2024-08-27 06:26] LABS: Blood Urea Nitrogen 9 mg/dL (9-23); Chloride 107 mmol/L (98-107); Glucose 109 mg/dL (74-106); Potassium 3.2 mmol/L (3.5-5.1)
[2024-08-27] MEDS: POTASSIUM EFFERVESENT TAB 25 MEQ PO ONE (09:50)
[2024-08-27 10:33] LABS: Urine Bacteria None Seen /hpf (None Seen)
--- NOTE | 2024-08-27 10:59 | DVHPN2 ---
Progress Note - Dictate Date Seen: Aug 27, 2024 Medical Necessity Reason Pt with a Central, PICC or Fol: Yes The following are medically ne: Central Line, Jordan Catheter Subjective Ms. Light is a 29 years old female with a history of obesity, seizure disorder, the patient was brought to the [facility] on 08/20/2024 with a chief company of seizure activity. I have seen and examined the patient, I have talked to her nurse, Dr. Freeman. Her ex- in the room with her, she improving, alert and fully alert Today, she confirmed that she only drinks alcohol 2-3 times monthly. She confirms on Keppra and Vimpat at home she does not remember the dosage and she wanted me me to ask her ex- According to her ex-, she was on Keppra 1500 mg b.i.d., Vimpat 100 mg b.i.d., gabapentin 100 mg t.i.d. Hepatitis panel, 08/20/2024: Negative Dilantin, 08/22/2024: 10.6, 08/23/2024: 12.5 UDS, 08/20/2024: Negative Plasma alcohol, 08/20/2024: 240.6 Urinalysis, 08/20/2024: Unremarkable ABG, 08/20/2024: Respiratory acidosis, metabolic acidosis CBC, 08/20/2024: Unremarkable PT/INR/CBC, 08/21/2024: 313.7/1.33/27.2 CMP, 08/20/2024: Unremarkable Albumin, 08/23/2024: 3.7 Vitamin B12, 08/20/2024: 699 TSH, 08/20/2024: 0.45 EEG, 08/20/2024: Diffuse Beta activity CT head, 05/20/2025: No acute intracranial abnormality. vital signs Vital Sign Date Time Temp Pulse Resp B/P (MAP) Pulse Ox O2 Delivery O2 Flow Rate FiO2 08/27/24 08:52 98.8 89 16 116/78 (91) 98 98.8 08/26/24 20:00 Room Air* 0 21 Total Intake and Output 08/26/24 08/26/24 08/27/24 14:59 22:59 06:59 Intake Total 1260 ml 1065 ml 100 ml Balance 1260 ml 1065 ml 100 ml medications Current Medications Medications Dose Ordered Sig/Nael Route Start Time Stop Time Status Last Admin Dose Admin Pantoprazole Sodium 40 mg DAILY IV 08/20/24 10:00 08/27/24 09:51 40 MG Lorazepam 1 mg Q5MINP PRN IV 08/20/24 10:00 08/27/24 01:29 1 MG Enoxaparin Sodium 40 mg DAILY SC 08/21/24 10:00 08/27/24 09:51 40 MG Thiamine HCl 100 mg DAILY IV 08/21/24 10:00 08/27/24 09:51 100 MG Enteral Nutritional Formula 1,000 ml 30ML/HR GT 08/20/24 12:15 Piperacillin Sod/ Tazobactam Sod 100 ml @ 25 mls/hr Q6HR IV 08/20/24 18:00 08/27/24 06:45 25 MLS/HR Docusate Sodium 100 mg BID GT 08/20/24 22:00 08/27/24 09:51 100 MG Acetaminophen 650 mg Q6HP PRN PO 08/20/24 16:15 08/26/24 01:15 650 MG Enalaprilat 0.625 mg Q6HP PRN IV 08/20/24 21:30 08/24/24 21:10 0.625 MG Levetiracetam 100 ml @ 400 mls/hr BID IV 08/21/24 10:00 08/27/24 09:51 400 MLS/HR Phenytoin Sodium 100 mg Q8HR IV 08/24/24 14:00 08/27/24 06:45 100 MG Ondansetron HCl 4 mg Q6HPRN PRN IV 08/25/24 10:00 08/25/24 10:28 4 MG Lorazepam 1 mg Q4HP PRN IV 08/25/24 10:00 08/25/24 23:20 1 MG objective The patient is alert and is oriented x3, Cranial nerves II through XII: pupils are equal round and reactive to light briskly, normal external eye movement, normal sensation and motor examination in the lateral trigeminal nerve distribution, no facial weakness. Motor examination: Normal mouse bulk and tone, muscle strength is normal Sensory examination: Unremarkable to pinprick and light touch Reflexes: Symmetric and without pathologic reflexes Coordination: Normal finger-nose tests bilaterally Gait: Deferred laboratory and microbiology Laboratory Tests 08/27/24 05:23 Test 08/27/24 05:23 Range/Units Serum Glucose 109 H 74-106 mg/dL Problem List Coma Status epilepticus Toxic encephalopathy Metabolic encephalopathy Seizure disorder, history unobtainable ? Alcoholism Assessment/Plan Monitoring Supportive treatment Telemetry Thiamine 100 mg IV q.d. Folic acid 1 mg IV q.d. Ativan for seizure breakthrough Keppra 1500 mg b.i.d. Vimpat 100 mg b.i.d. Gabapentin 100 mg t.i.d. D/C Dilantin 100 mg IV Q 8 hours for now Seizure precautions DT precautions DVT prophylaxis More recommendation per clinical course Follow up with her family doctor and her neurologist haider This medical document was created using an electronic medical record system with [employer] dictation system. Although this document has been carefully reviewed, there may still be some phonetic and typographical errors. These areas are purely typographical due to imperfections of the software programs, and do not reflect any compromise in the patient's medical care. Prognosis poor Dietary Evaluation Review Comments: 1. Consider increasing Jevity 1.2 to 45ml/hr to provide 1296 Kcal 60g Protein 872ml Free Water regime to meet nutritional needs 2. Consider advance to hepatic diet when medically appropriate Expected Outcomes/Goals: 1. Pt will meet >75% of nutritional needs within 2-3 days Plan discussed with: Patient, Spouse, Other Critical Care Time(min): 35 RODRIGO SEPULVEDA MD Aug 27, 2024 10:59
[2024-08-27 11:08] LABS: Urine Blood 2+ /uL (Negative); Urine Clarity Turbid (Clear); Urine Color Yellow (Yellow); Urine Mucus FEW (None Seen); Urine Protein, UAD 1+ (Negative); Urine Specific Gravity 1.031 (1.001-1.035); Urine Squamous Epithelial Cell MOD /hpf (<5); Urine Urobilinogen Normal (Negative); Urine WBC 8 /HPF (0-5); Urine pH 6.5 (5.0-9.0)
[2024-08-27] MEDS: LACOSAMIDE 50 MG TAB PO SCH (12:31)
[2024-08-27] MEDS: GABAPENTIN 100 MG CAP PO SCH (15:37)
[2024-08-27] MEDS: levoFLOXacin 500 MG TAB PO ONE (16:44)
--- NOTE | 2024-08-27 17:23 | DVHPNRES ---
Progress Note Date Seen: Aug 27, 2024 Resident Creating Document: RICH CRAMER RESIDENT Medical Necessity Reason Pt with a Central, PICC or Fol: No Subjective Review of Systems Ms. Light is a 29 years old female with a PMH of seizures, obesity presented to the ED with the chief complaints of seizures. Patient seen and examined at the bedside. Patient reported improvement in her symptoms since admission, reported no new complaints. Downgraded to tele. DC likely tomorrow. Patient reports: No new complaints, Feels better Objective vital signs Vital Sign Date Time Temp Pulse Resp B/P (MAP) Pulse Ox O2 Delivery O2 Flow Rate FiO2 08/27/24 16:49 98.5 80 16 113/59 (77) 97 98.5 08/27/24 08:10 Room Air* 0 21 Total Intake and Output 08/26/24 08/26/24 08/27/24 15:00 23:00 07:00 Intake Total 1260 ml 1065 ml 100 ml Balance 1260 ml 1065 ml 100 ml medications Current Medications Medications Dose Ordered Sig/Nael Route Start Time Stop Time Status Last Admin Dose Admin Lorazepam 1 mg Q5MINP PRN IV 08/20/24 10:00 08/27/24 01:29 1 MG Enoxaparin Sodium 40 mg DAILY SC 08/21/24 10:00 08/27/24 09:51 40 MG Docusate Sodium 100 mg BID GT 08/20/24 22:00 08/27/24 09:51 100 MG Acetaminophen 650 mg Q6HP PRN PO 08/20/24 16:15 08/26/24 01:15 650 MG Enalaprilat 0.625 mg Q6HP PRN IV 08/20/24 21:30 08/24/24 21:10 0.625 MG Ondansetron HCl 4 mg Q6HPRN PRN IV 08/25/24 10:00 08/25/24 10:28 4 MG Lorazepam 1 mg Q4HP PRN IV 08/25/24 10:00 08/25/24 23:20 1 MG Levetiracetam 1,500 mg BID PO 08/27/24 22:00 Gabapentin 100 mg TID PO 08/27/24 14:00 08/27/24 15:37 100 MG Lacosamide 100 mg BID PO 08/27/24 11:29 08/27/24 12:31 100 MG Metoprolol Succinate 50 mg DAILY PO 08/28/24 10:00 Levofloxacin 500 mg DAILY PO 08/28/24 10:00 Examination Pt is lying on bed General Appearance: Alert, Oriented X3, Cooperative, Not in acute distress HEENT: Atraumatic, Mucous membranes moist/pink Respiratory: Clear to auscultation, Normal air movement, No added sounds Cardiovascular: Regular rate, Normal S1, Normal S2, No murmurs Abdominal: Active bowel sounds, Soft, no distention, no tenderness Extremities: No edema, Normal pulses, No tenderness/swelling Skin: No Significant rash, except past surgical scars Neuro: Normal speech, sensorimotor deficits none Psych/Mental Status: Mental status NL, Mood NL Nurse was there as sharperone during examination laboratory and microbiology Laboratory Tests 08/27/24 05:23 Test 08/27/24 05:23 Range/Units Serum Glucose 109 H 74-106 mg/dL Microbiology Date/Time Source Procedure Growth Status 08/25/24 07:30 Blood Blood Culture - Preliminary NO GROWTH AFTER 48 HOURS OF INCUBATION. Resulted 08/25/24 07:21 Urine - Jordan Port Urine Culture - Final Complete 08/20/24 14:36 Nose MRSA Screen - Final Complete Labs and/or images reviewed: Labs reviewed by me, Image(s) reviewed by me Problem List/Assessment/Plan Problem List/Assessment/Plan # Acute metabolic or toxic encephalopathy- resolved # Grand mal seizures # Status epilepticus - CT showed no acute intracranial abnormalities - neurology on board, advised to continue current management - EEG - currently on Keppra 1500 mg bid - ordered Ativan p.r.n. for seizures - precautions seizures - Thiamine 100 mg IV q.d. and Folic acid 1 mg IV q.d. -DC phenytoin, started lacosamide 100 mg b.i.d. CARDIOLOGY RESPIRATORY # Acute hypoxic respiratory failure- resolving # possible aspiration pneumonia # influenza type B # SIRS vs Sepsis - rapid test positive for type B influenza - Currently on Zosyn for now - ordered pancultures, no growth - monitoring labs - Tamiflu GI/LIVER # obesity grade 1 - counseled regarding lifestyle modifications /KIDNEY/METABOLIC # Mixed Respiratory and metabolic acidosis likely due to above- corrected now - monitoring with the ABG - monitor renal function and electrolyte imbalance, replace as needed ENDO MSK HEME ID # possible aspiration pneumonia- resolving # influenza type B- resolving # SIRS vs Sepsis- resolving - rapid test positive for type B influenza - Currently on Zosyn for now - ordered pancultures - monitoring labs - tamiflu # alcohol abuse disorder # acute alcohol intoxication -counseled regarding cessation for more than 17 minutes SKIN LINES Itubation 08/20, extubated on 08/25 Right femoral vein catheter 08/20, DC 2/3 Jordan catheter 08/20, DC 2/3 DRIPS NUTRITION Regular diet PUD prophylaxis: Pantoprazole DVT prophylaxis: Lovenox Goals of care has been discussed with the family for more than 27 minutes, full code status Case discussed with Dr. Che Plan discussed with: Patient, Spouse My Orders My Orders Orders - RICH CRAMER RESIDENT Procedure Category Date Status Time Levofloxacin Tablet PHA 08/28/24 In Process (Levaquin Tablet) 10:00 Complete Blood Count LAB 08/28/24 Verified 04:00 Basic Metabolic Panel LAB 08/28/24 Verified 04:00 Dietary Evaluation Review Comments: 1. Consider increasing Jevity 1.2 to 45ml/hr to provide 1296 Kcal 60g Protein 872ml Free Water regime to meet nutritional needs 2. Consider advance to hepatic diet when medically appropriate Expected Outcomes/Goals: 1. Pt will meet >75% of nutritional needs within 2-3 days Date of Service: Aug 28, 2024 Billing Provider: ANDRES CHE MD Common Visit Codes: [id number] INP/OBS CARE(HIGH) Secondary Visit Codes: [id number] CARE PLAN 30 MINUTES RICH CRAMER Aug 27, 2024 17:23 ANDRES CHE MD Aug 28, 2024 17:05
[2024-08-27] MEDS: levETIRAcetam 500 MG TAB PO SCH (20:59)
[2024-08-27] MEDS ORDERED: AMOXICILLIN/CLAVUL 875 MG TAB PO SCH (22:00)
[2024-08-28 01:00] VITALS: BP 128/61; PULSE 82; RESP 18; TEMP 98; O2SAT 95
[2024-08-28 05:00] VITALS: BP 124/69; PULSE 86; RESP 17; TEMP 98.3; O2SAT 96
[2024-08-28 05:34] LABS: Basophils # (auto) 0.1 10 ^3/uL (0-0.2); Basophils % (auto) 1.2 % (0.0-2.0); Eosinophils # (auto) 0.2 10 ^3/uL (0-0.8); Eosinophils % (auto) 3.7 % (0.0-7.0); Hematocrit 34.1 % (36.0-46.0); Hemoglobin 11.6 g/dL (12.2-16.2); Lymphocytes # (auto) 1.7 10 ^3/uL (0.4-5.4); Lymphocytes % (auto) 26.4 % (10.0-50.0); Mean Corpuscular Hemoglobin 27.1 pg (28.0-32.0); Mean Corpuscular Volume 79.7 fL (80.0-100.0); Monocytes # (auto) 0.6 10 ^3/uL (0-1.3); Monocytes % (auto) 9.7 % (0.0-12.0); Neutrophils # (auto) 3.7 10 ^3/uL (1.6-8.6); Nucleated Red Blood Cells % 0.1 %; Platelet Count (auto) 291 10^3/uL (140-450); Red Blood Cells 4.28 10^6/uL (4.0-5.20); Red Cell Distribution Width 14.6 % (11.8-14.3); White Blood Cell 6.3 10^3/uL (4.4-10.8)
[2024-08-28 05:43] LABS: Chloride 106 mmol/L (98-107); Sodium 140 mmol/L (136-145)
[2024-08-28 05:44] LABS: Anion Gap 10 (5-15); Calcium 9.4 mg/dL (8.7-10.4); Carbon Dioxide 24 mmol/L (20-31)
[2024-08-28 05:49] LABS: BUN/Creatinine Ratio 26.1 (10.0-20.0); Blood Urea Nitrogen 12 mg/dL (9-23); Glucose 102 mg/dL (74-106)
[2024-08-28 05:52] LABS: Potassium 3.4 mmol/L (3.5-5.1)
[2024-08-28 08:10] VITALS: PULSE 77; PULSE 84; RESP 17; O2SAT 96
[2024-08-28 09:00] VITALS: BP 123/70; PULSE 84; RESP 17; TEMP 98.1; O2SAT 96
[2024-08-28] MEDS: levoFLOXacin 500 MG TAB PO SCH (09:05)
[2024-08-28] MEDS: METOPROLOL SUCCINATE XL 50 MG TAB PO SCH (09:06)
[2024-08-28] MEDS: POTASSIUM EFFERVESENT TAB 25 MEQ PO ONE (10:03)
--- NOTE | 2024-08-28 11:01 | DVHPN2 ---
Progress Note - Dictate Date Seen: Aug 28, 2024 Medical Necessity Reason Pt with a Central, PICC or Fol: No Subjective Ms. Light is a 29 years old female with a history of obesity, seizure disorder, the patient was brought to the [facility] on 08/20/2024 with a chief company of seizure activity. I have seen and examined the patient, I have talked to her nurse, her ex- 's in the room with her, she was alert and oriented x4. No seizure, no new complaints. "Ready to go home" Hepatitis panel, 08/20/2024: Negative Dilantin, 08/22/2024: 10.6, 08/23/2024: 12.5 UDS, 08/20/2024: Negative Plasma alcohol, 08/20/2024: 240.6 Urinalysis, 08/20/2024: Unremarkable ABG, 08/20/2024: Respiratory acidosis, metabolic acidosis CBC, 08/20/2024: Unremarkable PT/INR/CBC, 08/21/2024: 313.7/1.33/27.2 CMP, 08/20/2024: Unremarkable Albumin, 08/23/2024: 3.7 Vitamin B12, 08/20/2024: 699 TSH, 08/20/2024: 0.45 EEG, 08/20/2024: Diffuse Beta activity CT head, 05/20/2025: No acute intracranial abnormality. vital signs Vital Sign Date Time Temp Pulse Resp B/P (MAP) Pulse Ox O2 Delivery O2 Flow Rate FiO2 08/28/24 09:06 84 123/70 08/28/24 09:00 98.1 17 96 98.1 08/28/24 08:10 Room Air* 0 21 Total Intake and Output 08/27/24 08/27/24 08/28/24 15:00 23:00 07:00 Intake Total 200 ml 1190 ml 400 ml Balance 200 ml 1190 ml 400 ml medications Current Medications Medications Dose Ordered Sig/Nael Route Start Time Stop Time Status Last Admin Dose Admin Lorazepam 1 mg Q5MINP PRN IV 08/20/24 10:00 08/27/24 21:11 1 MG Enoxaparin Sodium 40 mg DAILY SC 08/21/24 10:00 08/28/24 09:06 40 MG Docusate Sodium 100 mg BID GT 08/20/24 22:00 08/27/24 09:51 100 MG Acetaminophen 650 mg Q6HP PRN PO 08/20/24 16:15 08/26/24 01:15 650 MG Enalaprilat 0.625 mg Q6HP PRN IV 08/20/24 21:30 08/24/24 21:10 0.625 MG Ondansetron HCl 4 mg Q6HPRN PRN IV 08/25/24 10:00 08/27/24 18:21 4 MG Lorazepam 1 mg Q4HP PRN IV 08/25/24 10:00 08/25/24 23:20 1 MG Levetiracetam 1,500 mg BID PO 08/27/24 22:00 08/28/24 09:05 1,500 MG Gabapentin 100 mg TID PO 08/27/24 14:00 08/28/24 04:49 100 MG Lacosamide 100 mg BID PO 08/27/24 11:29 08/28/24 09:05 100 MG Metoprolol Succinate 50 mg DAILY PO 08/28/24 10:00 08/28/24 09:06 50 MG Levofloxacin 500 mg DAILY PO 08/28/24 10:00 08/28/24 09:05 500 MG objective The patient is alert and is oriented x3, Cranial nerves II through XII: pupils are equal round and reactive to light briskly, normal external eye movement, normal sensation and motor examination in the lateral trigeminal nerve distribution, no facial weakness. Motor examination: Normal mouse bulk and tone, muscle strength is normal Sensory examination: Unremarkable to pinprick and light touch Reflexes: Symmetric and without pathologic reflexes Coordination: Normal finger-nose tests bilaterally Gait: Deferred laboratory and microbiology Laboratory Tests 08/28/24 05:09 Test 08/28/24 05:09 Range/Units Serum Glucose 102 74-106 mg/dL Problem List Coma Status epilepticus Toxic encephalopathy Metabolic encephalopathy Seizure disorder, history unobtainable ? Alcoholism Assessment/Plan Monitoring Supportive treatment Telemetry Thiamine 100 mg IV q.d. Folic acid 1 mg IV q.d. Ativan for seizure breakthrough Keppra 1500 mg b.i.d. Vimpat 100 mg b.i.d. Gabapentin 100 mg t.i.d. D/C Dilantin 100 mg IV Q 8 hours for now Seizure precautions DT precautions DVT prophylaxis More recommendation per clinical course Follow up with her family doctor and her neurologist haider Madsenay to discharge from neurologic point of view This medical document was created using an electronic medical record system with [employer] dictation system. Although this document has been carefully reviewed, there may still be some phonetic and typographical errors. These areas are purely typographical due to imperfections of the software programs, and do not reflect any compromise in the patient's medical care. Prognosis poor Dietary Evaluation Review Comments: 1. Consider increasing Jevity 1.2 to 45ml/hr to provide 1296 Kcal 60g Protein 872ml Free Water regime to meet nutritional needs 2. Consider advance to hepatic diet when medically appropriate Expected Outcomes/Goals: 1. Pt will meet >75% of nutritional needs within 2-3 days Plan discussed with: Patient, Other RODRIGO SEPULVEDA MD Aug 28, 2024 11:01
[2024-08-28 12:20] VITALS: BP 123/70; PULSE 84; RESP 17; TEMP 36.7; O2SAT 96
[2024-08-28 13:00] VITALS: BP_SYST 110; BP_SYST 117; BP_DIAS 67; BP_DIAS 75; PULSE 56; PULSE 83; RESP 16; RESP 18; TEMP 97.7; TEMP 99.2; O2SAT 92; O2SAT 98
--- NOTE | 2024-08-28 13:39 | ECG ---
[facility] Test Date: 2024-08-28 Test Time: 12:03:53 Pat Name: WILL RODRIGUEZ Department: Room: 0235T A Gender: F [employer]: rudy : 1995 Requested By: RICH CRAMER Order Number: [id number] Reading MD: Benny Sy Measurements Intervals Brandon Rate: 82 P: -13 GA: 126 QRS: 9 QRSD: 102 T: 17 QT: 362 QTc: 423 Interpretive Statements Sinus rhythm RSR' in V1 or V2, right VCD or RVH Electronically Signed On 08-29-2024 9:34:11 PST by Benny Sy Please click the below link to view image of tracing.
[2024-08-28] MEDS ORDERED: LEVO500T91 PO (16:02)
--- NOTE | 2024-08-28 19:20 | DVHPNRES ---
Progress Note Date Seen: Aug 28, 2024 Resident Creating Document: RICH CRAMER RESIDENT Medical Necessity Reason Pt with a Central, PICC or Fol: No Subjective Review of Systems Ms. Light is a 29 years old female with a PMH of seizures, obesity presented to the ED with the chief complaints of seizures. Patient seen and examined at the bedside. Patient reported improvement in her symptoms since admission, reported no new complaints. Downgraded to tele. DC likely today. Patient reports: No new complaints, Feels better Objective vital signs Vital Sign Date Time Temp Pulse Resp B/P (MAP) Pulse Ox O2 Delivery O2 Flow Rate FiO2 08/28/24 13:00 99.2 83 16 117/67 (84) 98 99.2 08/28/24 08:10 Room Air* 0 21 Total Intake and Output 08/27/24 08/27/24 08/28/24 15:00 23:00 07:00 Intake Total 200 ml 1190 ml 400 ml Balance 200 ml 1190 ml 400 ml Examination Pt is lying on bed General Appearance: Alert, Oriented X3, Cooperative, Not in acute distress HEENT: Atraumatic, Mucous membranes moist/pink Respiratory: Clear to auscultation, Normal air movement, No added sounds Cardiovascular: Regular rate, Normal S1, Normal S2, No murmurs Abdominal: Active bowel sounds, Soft, no distention, no tenderness Extremities: No edema, Normal pulses, No tenderness/swelling Skin: No Significant rash, except past surgical scars Neuro: Normal speech, sensorimotor deficits none Psych/Mental Status: Mental status NL, Mood NL Nurse was there as sharperone during examination laboratory and microbiology Laboratory Tests 08/28/24 05:09 Test 08/28/24 05:09 Range/Units Serum Glucose 102 74-106 mg/dL Microbiology Date/Time Source Procedure Growth Status 08/27/24 10:36 Sputum Gram Stain - Final Resulted 08/27/24 10:36 Sputum Respiratory Culture - Preliminary Resulted 08/27/24 10:20 Voided Urine Urine Culture - Preliminary Resulted 08/25/24 07:30 Blood Blood Culture - Preliminary NO GROWTH AFTER 72 HOURS OF INCUBATION. Resulted 08/20/24 14:36 Nose MRSA Screen - Final Complete Labs and/or images reviewed: Labs reviewed by me, Image(s) reviewed by me Problem List/Assessment/Plan Problem List/Assessment/Plan # Acute metabolic or toxic encephalopathy- resolved # Grand mal seizures # Status epilepticus - CT showed no acute intracranial abnormalities - neurology on board, advised to continue current management - EEG - currently on Keppra 1500 mg bid - ordered Ativan p.r.n. for seizures - precautions seizures - Thiamine 100 mg IV q.d. and Folic acid 1 mg IV q.d. -DC phenytoin, started lacosamide 100 mg b.i.d. CARDIOLOGY RESPIRATORY # Acute hypoxic respiratory failure- resolving # possible aspiration pneumonia # influenza type B # Sepsis from above - rapid test positive for type B influenza - Currently on Zosyn for now - ordered pancultures, no growth - monitoring labs - Tamiflu GI/LIVER # obesity grade 1 - counseled regarding lifestyle modifications /KIDNEY/METABOLIC # Mixed Respiratory and metabolic acidosis likely due to above- corrected now - monitoring with the ABG - monitor renal function and electrolyte imbalance, replace as needed ENDO MSK HEME ID # possible aspiration pneumonia- resolving # influenza type B- resolving # Sepsis from above - rapid test positive for type B influenza - Currently on Zosyn for now - ordered pancultures - monitoring labs - tamiflu # alcohol abuse disorder # acute alcohol intoxication -counseled regarding cessation for more than 17 minutes SKIN LINES Itubation 08/20, extubated on 08/25 Right femoral vein catheter 08/20, DC 2/3 Jordan catheter 08/20, DC 2/3 DRIPS NUTRITION Regular diet PUD prophylaxis: Pantoprazole DVT prophylaxis: Lovenox Goals of care has been discussed with the family for more than 27 minutes, full code status Case discussed with Dr. Sanchez Plan discussed with: Patient, Spouse My Orders My Orders Orders - RICH CRAMER RESIDENT Procedure Category Date Status Time Discharge DISCHARGE 08/28/24 Transmitted 11:52 Dietary Evaluation Review Comments: 1. Consider increasing Jevity 1.2 to 45ml/hr to provide 1296 Kcal 60g Protein 872ml Free Water regime to meet nutritional needs 2. Consider advance to hepatic diet when medically appropriate Expected Outcomes/Goals: 1. Pt will meet >75% of nutritional needs within 2-3 days RICH CRAMER RESIDENT Aug 28, 2024 19:20
--- NOTE | 2024-08-28 19:21 | DVHDSRES ---
Discharge Summary Date of Admission Resident Creating Document: RICH CRAMER RESIDENT Aug 20, 2024 at 05:28 Date of Discharge: Aug 28, 2024 Admitting Diagnosis Status epilepticus Labs/Diagnostic Data: Laboratory Results Test 08/28/24 05:09 08/27/24 10:20 08/26/24 08:06 08/25/24 07:40 White Blood Count 6.3 10^3/uL (4.4-10.8) Red Blood Count 4.28 10^6/uL (4.0-5.20) Hemoglobin 11.6 g/dL (12.2-16.2) Hematocrit 34.1 % (36.0-46.0) Mean Corpuscular Volume 79.7 fL (80.0-100.0) Mean Corpuscular Hemoglobin 27.1 pg (28.0-32.0) Mean Corpuscular Hemoglobin Concent 34.0 g/dL (32.0-36.0) Red Cell Distribution Width 14.6 % (11.8-14.3) Platelet Count 291 10^3/uL (140-450) Mean Platelet Volume 7.3 fL (6.9-10.8) Neutrophils (%) (Auto) 59.0 % (37.0-80.0) Lymphocytes (%) (Auto) 26.4 % (10.0-50.0) Monocytes (%) (Auto) 9.7 % (0.0-12.0) Eosinophils (%) (Auto) 3.7 % (0.0-7.0) Basophils (%) (Auto) 1.2 % (0.0-2.0) Neutrophils # (Auto) 3.7 10 ^3/uL (1.6-8.6) Lymphocytes # (Auto) 1.7 10 ^3/uL (0.4-5.4) Monocytes # (Auto) 0.6 10 ^3/uL (0-1.3) Eosinophils # (Auto) 0.2 10 ^3/uL (0-0.8) Basophils # (Auto) 0.1 10 ^3/uL (0-0.2) Nucleated Red Blood Cells 0.1 % Sodium Level 140 mmol/L (136-145) Potassium Level 3.4 mmol/L (3.5-5.1) Chloride Level 106 mmol/L (98-107) Carbon Dioxide Level 24 mmol/L (20-31) Anion Gap 10 (5-15) Blood Urea Nitrogen 12 mg/dL (9-23) Creatinine 0.46 mg/dL (0.550-1.02) Glomerular Filtration Rate Calc 132 mL/min (>90) BUN/Creatinine Ratio 26.1 (10.0-20.0) Serum Glucose 102 mg/dL (74-106) Calcium Level 9.4 mg/dL (8.7-10.4) Urine Color Yellow (Yellow) Urine Clarity Turbid (Clear) Urine pH 6.5 (5.0-9.0) Urine Specific Gordon 1.031 (1.001-1.035) Urine Protein 1+ (Negative) Urine Ketones 1+ (Negative) Urine Blood 2+ /uL (Negative) Urine Nitrite Negative (Negative) Urine Bilirubin Negative (Negative) Urine Urobilinogen Normal mg/dL (Negative) Urine Leukocyte Esterase Negative /uL (Negative) Urine RBC 259 /hpf (0 - 4) Urine Microscopic WBC 8 /HPF (0-5) Urine Squamous Epithelial Cells Mod /hpf (<5) Urine Bacteria None seen /hpf (None Seen) Urine Mucus Few (None Seen) Urine Glucose Normal mg/dL (Normal) Magnesium Level 1.9 mg/dL (1.6-2.6) Total Bilirubin 0.3 mg/dL (0.2-1.0) Aspartate Amino Transferase (AST) 25 U/L (13-40) Alanine Aminotransferase (ALT) 34 U/L (7-40) Alkaline Phosphatase 95 U/L (46-116) Total Protein 7.0 g/dL (5.7-8.2) Albumin 4.3 g/dL (3.2-4.8) Blood Gas Specimen Type Arterial Blood Gas Sample Site Left radial Blood Gas Patient Temperature 37.0 Arterial Blood Date Drawn [id number] Arterial Blood pH 7.392 (7.350-7.450) Arterial Blood Partial Pressure CO2 28.6 mmHg (32.0-45.0) Arterial Blood Partial Pressure O2 132.3 mmHg (83.0-108.0) Arterial Blood HCO3 17.0 mmol/L (21.0-28.0) Arterial Blood Oxygen Saturation 98.6 % (94.0-98.0) Arterial Blood Base Excess -6.6 mmol/L (-2.0-3.0) Arterial Blood Oxyhemoglobin 98.1 % (94.0-98.0) Arterial Blood Carboxyhemoglobin 0.4 % (0.5-1.5) Arterial Blood Methemoglobin 0.1 % (0.0-1.5) Charles Test Modified Blood Gas Total Hemoglobin 12.50 g/dL (12.0-16.0) Blood Gas Modality Vent - cpap FiO2 % 30.0 Blood Gas Tidal Volume 400.0 Blood Gas Pressure Support 8 Blood Gas PEEP or CPAP 5.0 Test 08/25/24 07:21 08/24/24 07:14 08/23/24 03:30 08/21/24 15:30 Lactic Acid Level 1.0 mmol/L (0.4-2.0) Blood Gas Set Respiration Rate 20.0 Phenytoin (Dilantin) Level 12.5 ug/mL (10-20) Prolactin 17.10 ng/mL (2.8-29.2) Test 08/20/24 11:12 08/20/24 10:43 08/20/24 08:30 08/20/24 07:56 Free Thyroxine (T4) Calculated 1.34 ng/dL (0.89-1.76) Total Triiodothyronine (TT3) 1.15 ng/mL (0.60-1.81) Vitamin D 25-Hydroxy 61.7 ng/mL (30.0-100) Folic Acid 10.45 ng/mL (>5.38) Hepatitis A IgM Antibody Negative Hepatitis B Surface Antigen Negative (Negative) Hepatitis B Core IgM Antibody Negative (Negative) Hepatitis C Antibody Negative (Negative) Influenza Type A Antigen Negative (Negative) Influenza Type B Antigen Positive (Negative) SARS-CoV-2 Antigen (Rapid) Negative (NEGATIVE) Test 08/20/24 06:05 08/20/24 05:28 08/20/24 04:41 08/20/24 02:16 Prothrombin Time 13.7 sec (9.3-11.8) Prothrombin Time INR 1.33 (0.9-1.15) Activated Partial Thromboplast Time 27.2 SEC (24.5-34.5) Direct Bilirubin < 0.1 mg/dL (<0.3) Creatine Kinase 63 U/L (34-145) Vitamin B12 Level 699 pg/mL (211-911) Thyroid Stimulating Hormone (TSH) 0.45 uIU/mL (0.55-4.78) Rapid Plasma Reagin Non reactive (Non Reactive) Ammonia 14 umol/L (11-32) Blood Gas Critical Value Read Back yes Blood Gas Notified Whom ha rodrigues md Blood Gas Notified Time [id number] Blood Gas Notified By cutting machine tender decorative louies carmichael Plasma/Serum Blood Alcohol 240.6 mg/dL (<10) Test 08/20/24 01:50 Urine Test Negative (Negative) Urine Opiates Screen Neg (NEGATIVE) Urine Fentanyl Screen Neg (NEGATIVE) Urine Barbiturates Screen Neg (NEGATIVE) Urine Phencyclidine Screen Neg (NEGATIVE) Urine Amphetamines Screen Neg (NEGATIVE) Urine Benzodiazepines Screen Neg (NEGATIVE) Urine Cocaine Screen Neg (NEGATIVE) Urine Cannabinoids Screen Neg (NEGATIVE) Other Laboratory Tests 08/28/24 05:09 Brief Hx & Hospital Course: Ms. Light is a 29 years old female with a PMH of seizures, obesity presented to the ED with the chief complaints of seizures. Per records patient's boyfriend who called the EMS, patient had a sudden onset of seizures after having 3 alcoholic beverages earlier in the day. At scene patient was noted to have a blood glucose level of 111. On arrival to the ED, patient was A&O x3. Within 20 minutes of arrival to the ER, patient started seizing again and underwent multiple seizures, A&O x1 along with postictal confusion was noted. Patient was subsequently sedated and intubated. Patient had multiple seizure episodes in past , some of them required intubation 3 times in past. due to encephalopathy, CT showed no acute intracranial abnormalities. Patient was in status epilepticus. Patient was intubated, on mechanical ventilation and sedated with Versed, Diprivan, fentanyl. Neurology consult evaluated the patient and advised Keppra, Ativan along with thiamine and folic acid. Still ongoing seizures so Neurology advised phenytoin 1000 mg dose once and 100 mg t.i.d. patient was continuously monitored. The patient was given antibiotics Zosyn for aspiration pneumonia. Lab test positive for influenza type B, given Tamiflu. Patient condition was monitored with ABG and CXR. Patient condition is getting better, extubated. Patient condition was improved, hemodynamically stable and in condition to be discharged home with optimal medical treatment. Patient was advised about healthy lifestyle modifications including diet and exercise and given counseling regarding cessation of alcohol for 17 minutes. Patient was advised to follow up with PCP and Neurology after the discharge. Pt is lying on bed General Appearance: Alert, Oriented X3, Cooperative, Not in acute distress HEENT: Atraumatic, Mucous membranes moist/pink Respiratory: Clear to auscultation, Normal air movement, No added sounds Cardiovascular: Regular rate, Normal S1, Normal S2, No murmurs Abdominal: Active bowel sounds, Soft, no distention, no tenderness Extremities: No edema, Normal pulses, No tenderness/swelling Skin: No Significant rash, except past surgical scars Neuro: Normal speech, sensorimotor deficits none Psych/Mental Status: Mental status NL, Mood NL Nurse was there as sharperone during examination Operations or Procedures EXAM: CT HEAD WITHOUT CONTRAST IMPRESSION: No acute intracranial abnormality. CHEST RADIOGRAPH IMPRESSION: 1. Interval development of left basilar opacity which may reflect atelectasis or pneumonia. Condition at Discharge: Stable Final Diagnosis/Problems List # Acute metabolic or toxic encephalopathy- resolved # Grand mal seizures # Status epilepticus # Acute hypoxic respiratory failure- resolving # possible aspiration pneumonia # influenza type B # Sepsis from above # obesity grade 1 # Mixed Respiratory and metabolic acidosis likely due to above- corrected now # alcohol abuse disorder # acute alcohol intoxication Discharge Disposition: Home Discharge Instruct/Medications Diet: Regular Activity: No Restrictions, As Tolerated Follow Up/Referral: PCP and Neuro Medications: Levaquin 500 mg po bid for 5 days and continue home med Discharge Statement: "Patient was advised to return to the ER or call 911 if any headaches, dizziness, shortness of breath, chest pain, abdominal pain, bleeding, fevers, or worsening of medical condition. Patient was counseled about treatment plan, medications, possible side effects, patientverbalized understanding. All questions were answered to the best of my ability. This discharge took greater then 30 minutes in planning, reviewing documentation, counseling the patient, and discussing with other team members." ASSESSMENT ASSESSMENT Assessment Status epilepticus RICH CRAMER RESIDENT Aug 28, 2024 19:21
== END 2024-08-28 14:53 | disposition home or self-care (01) | DRG 720 ==
LOC: EDBD 01:46 → ER 01:46 → TELE 05:28 → ICU WEST 17:08 → TELE-EAST 08-26 12:18
PROVIDERS: ADMIT Internal Medicine; ATTEND Internal Medicine
PROC: 5A1955Z Respiratory Ventilation, Greater than 96 Consecutive Hours (ICD-10-PCS; principal; 2024-08-20)
PROC: 0BH17EZ Insertion of Endotracheal Airway into Trachea, Via Natural or Artificial Opening (ICD-10-PCS; 2024-08-20)
PROC: 06HY33Z Insertion of Infusion Device into Lower Vein, Percutaneous Approach (ICD-10-PCS; 2024-08-20)
DX: A41.9 Sepsis, unspecified organism (principal); J96.01 Acute respiratory failure with hypoxia; J69.0 Pneumonitis due to inhalation of food and vomit; R40.20 Unspecified coma; G92.8 Other toxic encephalopathy; Z20.822 Contact with and (suspected) exposure to COVID-19; G40.401 Other generalized epilepsy and epileptic syndromes, not intractable, with status epilepticus; E87.4 Mixed disorder of acid-base balance; F10.129 Alcohol abuse with intoxication, unspecified; J10.1 Influenza due to other identified influenza virus with other respiratory manifestations; E66.9 Obesity, unspecified; F41.9 Anxiety disorder, unspecified; Z82.49 Family history of ischemic heart disease and other diseases of the circulatory system; Z88.0 Allergy status to penicillin; Z93.1 Gastrostomy status; Z68.27 Body mass index [BMI] 27.0-27.9, adult; Y90.8 Blood alcohol level of 240 mg/100 ml or more
CPT/HCPCS: 31500; 36415; 36600; 70450; 71045; 80048; 80053; 80074; 80076; 80185; 80307; 80320; 81001; 81025; 82140; 82306; 82542; 82550; 82607; 82746; 82805; 83605; 83735; 84146; 84439; 84443; 84480; 85025; 85610; 85730; 86592; 87040; 87070; 87081; 87086; 87205; 87426; 87804; 93005; 94002; 94003; 94640; 95819; 97163; 99291; G0378; J2250; J2405; J2470; J2543; J2704; J3480; J7060

== ENCOUNTER 2024-09-19 22:10 | Emergency (ER) | payer MEDICAID, OTHER ==
[~2024-09-19] VITALS: Ht 149.9 cm; Wt 69.6 kg
[~2024-09-19 22:10] MED LIST: GABA-1308 PO; LACO100T3 PO; LEVE500T40 PO; LEVO500T91 PO; METO-158 PO
[2024-09-20 00:15] VITALS: BP 151/90; PULSE 62; RESP 17; TEMP 98.1; O2SAT 97
--- NOTE | 2024-09-20 00:21 | ED.PDOC ---
History of Present Illness EXP HPI Comments Pt reports needle stick to the 1st digit of the right hand at 1700 Today while working. Pt reports the site bleeding after the stick. States site was heavily cleaned. Denies numbness or weakness or any other known injury. Chief Complaint: Post Exposure Time Seen by MD: 22:55 Reviewed Notes: Nurses Notes, Medications, Allergies Allergies: Coded Allergies: Penicillins (Verified Allergy, Mild, HIVES, 08/25/24) Home Meds Active Scripts Levofloxacin Hemihydrate (LEVOFLOXACIN) 500 Mg Tab, 1 TAB PO DAILY, #5 TAB Prov:ROSIE LAST RESIDENT 08/28/24 Reported Medications Levetiracetam (Keppra) 500 Mg Tab, 1500 MG PO BID for 30 Days, MG 08/23/24 Lacosamide (Lacosamide) 100 Mg Tab, 100 MG PO BID, TAB 08/23/24 Gabapentin (Gabapentin) 100 Mg Cap, 100 MG PO TID 08/23/24 Metoprolol Tartrate (Metoprolol Tartrate) 50 Mg Tab, 50 MG PO DAILY, MG 08/23/24 Information Source: Patient Mode of Arrival: Ambulatory Past Medical History PAST MEDICAL HISTORY: Seizures Surgical History: Denies all surgeries GAUNTLET PAIRER History: Denies all GAUNTLET PAIRER Hx Family History Family History: Unknown Social History Smoker: Non-Smoker Alcohol: Heavy Drugs: Denies Drug Use Lives In: Home Constitutional: denies: chills, diaphoresis, fatigue, fever, malaise, sweats, weakness, others EENTM: denies: blurred vision, double vision, ear bleeding, ear discharge, ear drainage, ear pain, ear ringing, eye pain, eye redness, hearing loss, mouth pain, mouth swelling, nasal discharge, nose bleeding, nose congestion, nose pain, photophobia, tearing, throat pain, throat swelling, voice changes, others Respiratory: denies: cough, hemoptysis, orthopnea, SOB at rest, shortness of breath, SOB with excertion, stridor, wheezing, others Cardiovascular: denies: chest pain, dizzy spells, diaphoresis, Dyspnea on exertion, edema, irregular heart beat, left arm pain, lightheadedness, palpitations, PND, syncope, others Gastrointestinal: denies: abdomen distended, abdominal pain, blood streaked bowels, constipated, diarrhea, dysphagia, difficulty swallowing, hematemesis, melena, nausea, poor appetite, poor fluid intake, rectal bleeding, rectal pain, vomiting, others Genitourinary: denies: abnormal vagina bleeding, burning, dyspareunia, dysuria, flank pain, frequency, hematuria, incontinence, pain, , vagina discharge , urgency, others Neurological: denies: dizziness, fainting, headache, left sided numbness, left sided weakness, numbness, paresthesia, pre-existing deficit, right sided numbness, right sided weakness, seizure, speech problems, tingling, tremors, weakness, others Musculoskeletal: denies: back pain, gout, joint pain, joint swelling, muscle pain, muscle stiffness, neck pain, others Integumetry: reports: wounds (Tip of right thumb needlestick); denies: bruises, change in color, change in hair/nails, dryness, laceration, lesions, lumps, rash, others Allergic/Immunocompromised: denies: Difficulty Healing, Frequent Infections, Hives, Itching, others Hematologic/Lymphatic: denies: anemia, blood clots, easy bleeding, easy bruising, swollen glands, others Endocrine: denies: excessive hunger, excessive sweating, excessive thirst, excessive urination, flushing, intolerance to cold, intolerance to heat, unexplained weight gain, unexplained weight loss, others Psychiatric: denies: anxiety, bipolar disorder, depression, hopeless, panic disorder, schizophrenia, sleepless, suicidal, others Physical Exam General Appearance: No Apparent Distress, Normal HEENT: Pharynx Normal Neck: Full Range of Motion, Non-Tender Respiratory: Lungs Clear, No Respiratory Distress, Normal Breath Sounds Cardiovascular: No Murmur, Normal Peripheral Pulses, Regular Rate/Rhythm Breast Exam: Deferred Gastrointestinal: Non Tender, Soft Genitalia: Deferred Pelvic: Deferred Rectal: Deferred Extremities: Normal capillary refill, Normal range of motion Musculoskeletal : Apperance: Normal Neurologic: Alert, advanced manufacturing engineer II-XII nml as Tested, No Motor Deficits, Normal Affect, Normal Mood, No Sensory Deficits Cerebellar Function: Normal Reflexes: Normal Skin: Dry, Normal Color, Warm, Wounds (Healed puncture wound to right distal thumb no noted bleeding, erythema, or drainage capillary refill less than 3 seconds strength sensory motion intact) Lymphatic: No Adenopathy Was a procedure done? Was a procedure done?: No Differential Diagnosis (EXP) Differential Diagnosis: Body fluid exposure, Infect. Disease exposure, Needle stick exposure X-Ray, Labs, Meds, VS Vital Signs Date Time Temp Pulse Resp B/P (MAP) Pulse Ox O2 Delivery O2 Flow Rate FiO2 09/19/24 22:21 98.1 71 18 186/83 (117) 98 Lab Test 09/19/24 23:57 Range/Units Hepatitis B Surface Antigen Pending Hepatitis B Surface Antibody Pending Hepatitis C Antibody Pending HIV (1&2) Antibody Pending X-Ray, Labs, Meds, VS Comment Baseline STD panel drawn. Patient to follow up with [facility] for results and continued management and repeat labs. Return precautions given patient indicates understanding agrees with discharge plan of care. Time of 1ST Reevaluation: 00:20 Reevaluation 1ST: Unchanged Patient Education/Counseling: Diagnosis, Treatment, Prognosis, Need For Follow Up Family Education/Counseling: No Family Present Departure 1 Departure Time of Disposition: 00:20 Impression: Primary Impression: Needlestick injury of thumb Disposition: 01 HOME / SELF CARE / HOMELESS Condition: Stable Discharged With: Self Critical Care Note Critical Care Time?: No Stability Stability form required: SANG Palacio Sep 20, 2024 00:21
[2024-09-20 02:08] LABS: Hepatitis B Surface Antibody Positive (Negative); Hepatitis B Surface Antigen Negative (Negative)
== END 2024-09-20 00:58 | disposition home or self-care (01) ==
LOC: ER 22:10
DX: S61.432A Puncture wound without foreign body of left hand, initial encounter (principal); Z88.0 Allergy status to penicillin; Z79.899 Other long term (current) drug therapy; Z77.21 Contact with and (suspected) exposure to potentially hazardous body fluids; W46.0XXA Contact with hypodermic needle, initial encounter; Y93.89 Activity, other specified; Y92.89 Other specified places as the place of occurrence of the external cause; Y99.0 Civilian activity done for income or pay
CPT/HCPCS: 36415; 86703; 86706; 86803; 87340

== ENCOUNTER → 2024-10-29 | Outpatient (CLI) | payer MEDICAID | END | disposition home or self-care (01) | LOC: LAB 10:43 | PROVIDERS: ATTEND Internal Medicine | DX: N39.0 Urinary tract infection, site not specified (principal) | CPT/HCPCS: 87086 ==

== ENCOUNTER 2024-12-10 01:23 | Emergency (ER) | payer MEDICAID ==
[~2024-12-10] VITALS: Ht 152.4 cm; Wt 68.0 kg
[2024-12-10] MEDS ORDERED: diphenhdrAMINE HCL 50 MG/1 ML VL IM ONE (02:00)
[2024-12-10] MEDS ORDERED: LORazepam 2MG/ML-1ML VIAL IM ONE (02:00)
--- NOTE | 2024-12-10 02:05 | ED.PDOC ---
History of Present Illness HPI Comments 29 y/o F is BIBA for seizure. Per EMS, patient was drinking alcohol at [employer] when she had a sudden seizure episode. She was reportedly assisted to the floor by her boyfriend. The seizure lasted approximately 2 minutes. On scene, patient was reportedly intoxicated and combative, requiring restraints. At the time I attempted to interview the patient, she was screaming and combative. She was not answering any questions. No additional history is available. Chief Complaint: Seizure Time Seen by MD: 01:40 Reviewed Notes: Nurses Notes, Farebox Repairer Notes, Medications, Allergies Allergies: Coded Allergies: Penicillins (Verified Allergy, Mild, HIVES, 08/25/24) Home Meds Active Scripts Levofloxacin Hemihydrate (LEVOFLOXACIN) 500 Mg Tab, 1 TAB PO DAILY, #5 TAB Prov:SHALAROSIE RESIDENT 08/28/24 Reported Medications Levetiracetam (Keppra) 500 Mg Tab, 1500 MG PO BID for 30 Days, MG 08/23/24 Lacosamide (Lacosamide) 100 Mg Tab, 100 MG PO BID, TAB 08/23/24 Gabapentin (Gabapentin) 100 Mg Cap, 100 MG PO TID 08/23/24 Metoprolol Tartrate (Metoprolol Tartrate) 50 Mg Tab, 50 MG PO DAILY, MG 08/23/24 Information Source: Patient, Emergency Med Personnel Mode of Arrival: EMS Severity: Moderate Timing: Hours Duration: Since onset Prehospital treatment: Restraints Past Medical History PAST MEDICAL HISTORY: Seizures Surgical History: Unobtainable MASONRY INSTALLER History: No Pertinent MASONRY INSTALLER History Family History Family History: Unknown Social History Smoker: Non-Smoker Alcohol: Heavy Drugs: Unknown Lives In: Home All Other Systems: Reviewed and Negative (Comprehensive systems review obtained and negative except for what is stated in the HPI.) Physical Exam General Appearance: Severe Distress, Other (Screaming, combative) HEENT: Other (Pupils and face symmetric. Moist mucous membranes. Vomit on the side of her mouth.) Neck: Full Range of Motion, Non-Tender, Normal Inspection, Supple Respiratory: Lungs Clear, No Accessory Muscle Use, No Respiratory Distress, Normal Breath Sounds Cardiovascular: No Edema, No JVD, Tachycardia Breast Exam: Deferred Gastrointestinal: Non Tender, Soft Genitalia: Deferred Pelvic: Deferred Rectal: Deferred Extremities: Normal inspection, Normal range of motion, Non-tender, No pedal edema Neurologic: Alert, Other (Screaming, combative, no gross focal deficit) Cerebellar Function: NOT DONE Reflexes: NOT DONE Skin: Dry, Normal Color, Warm Lymphatic: NOT DONE Was a procedure done? Was a procedure done?: No Differential Dx Considerations may include: seizures, pseudoseizures, syncope, alcohol intoxication, drug intoxication, electrolyte imbalance, hypoglycemia, among others X-Ray, Labs, Meds, VS Vital Signs Date Time Temp Pulse Resp B/P (MAP) Pulse Ox O2 Delivery O2 Flow Rate FiO2 12/10/24 02:50 98 16 94 Room Air* 0 21 12/10/24 02:48 98.7 98 16 104/52 (69) 94 98.7 12/10/24 01:34 116 20 158/83 (108) 96 Lab Test 12/10/24 03:09 12/10/24 02:09 Range/Units White Blood Count 7.2 4.4-10.8 10^3/uL Red Blood Count 4.70 4.0-5.20 10^6/uL Hemoglobin 11.9 L 12.2-16.2 g/dL Hematocrit 36.7 36.0-46.0 % Mean Corpuscular Volume 78.1 L 80.0-100.0 fL Mean Corpuscular Hemoglobin 25.4 L 28.0-32.0 pg Mean Corpuscular Hemoglobin Concent 32.5 32.0-36.0 g/dL Red Cell Distribution Width 19.2 H 11.8-14.3 % Platelet Count 223 140-450 10^3/uL Mean Platelet Volume 8.9 6.9-10.8 fL Neutrophils (%) (Auto) 53.6 37.0-80.0 % Lymphocytes (%) (Auto) 35.7 10.0-50.0 % Monocytes (%) (Auto) 9.2 0.0-12.0 % Eosinophils (%) (Auto) 1.3 0.0-7.0 % Basophils (%) (Auto) 0.2 0.0-2.0 % Neutrophils # (Auto) 3.8 1.6-8.6 10 ^3/uL Lymphocytes # (Auto) 2.6 0.4-5.4 10 ^3/uL Monocytes # (Auto) 0.7 0-1.3 10 ^3/uL Eosinophils # (Auto) 0.1 0-0.8 10 ^3/uL Basophils # (Auto) 0 0-0.2 10 ^3/uL Nucleated Red Blood Cells 0.1 % Troponin I High Sensitivity 3 L 3 L </=34 ng/L Sodium Level 144 136-145 mmol/L Potassium Level 4.3 3.5-5.1 mmol/L Chloride Level 110 H 98-107 mmol/L Carbon Dioxide Level 20 20-31 mmol/L Anion Gap 14 5-15 Blood Urea Nitrogen 13 9-23 mg/dL Creatinine 0.67 0.550-1.02 mg/dL Glomerular Filtration Rate Calc 121 >90 mL/min BUN/Creatinine Ratio 19.4 10.0-20.0 Serum Glucose 107 H 74-106 mg/dL Calcium Level 9.1 8.7-10.4 mg/dL Plasma/Serum Blood Alcohol Pending Current Medications Medications (Trade) Dose Ordered Sig/Nael Route Start Time Stop Time Status Last Admin Haloperidol Lactate (Haldol) 5 mg ONCE ONCE IM 12/10/24 02:00 12/10/24 02:01 DC 12/10/24 02:20 Lorazepam (Ativan Inj) 2 mg ONCE ONCE IV 12/10/24 02:30 12/10/24 02:31 DC 12/10/24 02:20 Diphenhydramine HCl (Benadryl Injection) 50 mg ONCE ONCE IV 12/10/24 02:30 12/10/24 02:31 DC 12/10/24 02:20 Levetiracetam 100 ml @ 400 mls/hr ONCE ONCE IV 12/10/24 03:45 12/10/24 03:59 DC 12/10/24 04:14 X-Ray, Labs, Meds, VS Comment 29-year-old female with a history of seizures brought in by EMS from a local bar status post seizure Vitals remarkable for heart rate 116, BP 158/83 Exam remarkable for combativeness Rhythm strip independently interpreted by me: Sinus tach, rate 116, no ectopy. Head CT pending CBC and basic metabolic panel unremarkable, troponins negative, serum alcohol pending Patient treated with the following in the ED: Ativan 2 mg IV, Benadryl 50 mg IV, Haldol 5 mg IM, 1 L 0.9 normal saline IV bolus, Keppra 1 g IV Patient had recurrent seizure activity in the ED, tonic-clonic, lasting approximately 30 seconds and resolved with Ativan. Plan is to admit the patient for observation and Neurology evaluation Time of 1ST Reevaluation: 02:10 Reevaluation 1ST: Unchanged Time of 2ND Reevaluation: 03:52 Reevaluation 2ND: Improved Patient Education/Counseling: Diagnosis, Treatment Family Education/Counseling: No Family Present Departure 1 Departure Time of Disposition: 03:52 Impression: Primary Impression: Recurrent seizures Additional Impression: Alcohol intoxication Qualified Codes: F10.929 - Alcohol use, unspecified with intoxication, unspecified Disposition: ADMITTED INPATIENT Admit to: Tele Condition: Guarded Critical Care Note Critical Care Time?: No Stability Stability form required: No Heart Score Heart Score: Heart Score Response (Comments) Value History N/A 0 EKG N/A 0 Age N/A 0 Risk Factors N/A 0 Troponin N/A 0 Total 0 I personally scribed for OSWALDO SPRINGER MD ([email or web address]) on 12/10/24 at 02:05. Electronically submitted by Balbir Cantor ([email or web address]). OSWALDO SPRINGER MD December 10, 2024 02:05
[2024-12-10] MEDS: LORazepam 2MG/ML-1ML VIAL IV ONE (02:20)
[2024-12-10] MEDS: diphenhdrAMINE HCL 50 MG/1 ML VL IV ONE (02:20)
[2024-12-10] MEDS: HALOPERIDOL LACTATE 5 MG/ML INJ VIAL IM ONE (02:20)
[2024-12-10 02:40] LABS: Anion Gap 14 (5-15); Potassium 4.3 mmol/L (3.5-5.1); Sodium 144 mmol/L (136-145)
[2024-12-10 02:41] LABS: Calcium 9.1 mg/dL (8.7-10.4)
[2024-12-10 02:46] LABS: BUN/Creatinine Ratio 19.4 (10.0-20.0); Blood Urea Nitrogen 13 mg/dL (9-23)
[2024-12-10 02:47] LABS: Carbon Dioxide 20 mmol/L (20-31); Chloride 110 mmol/L (98-107); Glucose 107 mg/dL (74-106)
[2024-12-10 02:50] VITALS: PULSE 98; RESP 16; O2SAT 94
[2024-12-10 03:39] LABS: Basophils # (auto) 0 10 ^3/uL (0-0.2); Eosinophils # (auto) 0.1 10 ^3/uL (0-0.8); Lymphocytes # (auto) 2.6 10 ^3/uL (0.4-5.4); Neutrophils # (auto) 3.8 10 ^3/uL (1.6-8.6); White Blood Cell 7.2 10^3/uL (4.4-10.8)
[2024-12-10 03:43] LABS: Basophils % (auto) 0.2 % (0.0-2.0); Eosinophils % (auto) 1.3 % (0.0-7.0); Hematocrit 36.7 % (36.0-46.0); Hemoglobin 11.9 g/dL (12.2-16.2); Lymphocytes % (auto) 35.7 % (10.0-50.0); Mean Corpuscular Hemoglobin 25.4 pg (28.0-32.0); Mean Corpuscular Hgb Conc. 32.5 g/dL (32.0-36.0); Mean Corpuscular Volume 78.1 fL (80.0-100.0); Monocytes # (auto) 0.7 10 ^3/uL (0-1.3); Monocytes % (auto) 9.2 % (0.0-12.0); Neutrophils % (auto) 53.6 % (37.0-80.0); Nucleated Red Blood Cells % 0.1 %; Platelet Count (auto) 223 10^3/uL (140-450); Red Cell Distribution Width 19.2 % (11.8-14.3)
[2024-12-10] MEDS: levETIRAcetam 1000 mg/100ml 100 ML IV ONE (04:14)
[2024-12-10 05:41] VITALS: TEMP 98
[2024-12-10 06:51] VITALS: BP 101/64
[2024-12-10 07:58] VITALS: PULSE 94; RESP 16; O2SAT 95
== END 2024-12-10 07:58 | disposition left against medical advice (07) ==
LOC: EDBD 01:23 → ER 01:23
DX: G40.909 Epilepsy, unspecified, not intractable, without status epilepticus (principal); F10.129 Alcohol abuse with intoxication, unspecified; Y90.8 Blood alcohol level of 240 mg/100 ml or more; Z88.0 Allergy status to penicillin; Z79.899 Other long term (current) drug therapy
CPT/HCPCS: 36415; 80048; 80320; 84484; 85025; 96365; 96372; 96375; 99285; J1200; J1630; J1953; J2060; 96374